=== PATIENT | female | born 1965 | race Caucasian/White ===

== ENCOUNTER 2017-10-31 15:45 | Emergency (ER) | payer SELFPAY ==
[2017-10-31 15:46] VITALS: BP 144/79; PULSE 67; RESP 17; TEMP 36.7; O2SAT 95; BMI 22.1
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
[2017-10-31] MEDS: Naproxen 500 MG Tablet PO (16:15)
[2017-10-31] MEDS: Ondansetron ODT 4 MG Tablet PO (16:15)
--- NOTE | 2017-10-31 16:16 | ED.RN ---
PT ASKING TO TAKE HER LISINOPRIL, DR. SILVERIO AWARE AND VERIFIES PATIENT OKAY TO TAKE
--- NOTE | 2017-10-31 16:55 | ED.DEP ---
ED Disposition - Plan for ED Patient: Disposition: Home or Assisted Living Chief Complaint: Chest Other Instructions: ED Contusion Chest Wall Prescriptions: Naproxen [Naprosyn] 500 mg PO BID PRN #20 tab Referrals: Lonnie Brower DO [Primary Care Provider] -
[2017-10-31 17:00] VITALS: BP 135/96; RESP 18
== END 2017-10-31 17:00 | disposition home or self-care (01) ==
PROVIDERS: Emergency Provider Emergency Medicine; Family Provider Student in an Organized Health Care Education/Training Program; PCP Student in an Organized Health Care Education/Training Program
DX: S20.212A Contusion of left front wall of thorax, initial encounter (principal); X58.XXXA Exposure to other specified factors, initial encounter; Y93.9 Activity, unspecified; Y92.9 Unspecified place or not applicable; Y99.9 Unspecified external cause status; I10 Essential (primary) hypertension; Z72.0 Tobacco use; Z79.899 Other long term (current) drug therapy
CPT/HCPCS: 71101; 99283

== ENCOUNTER 2018-04-06 15:21 | Emergency (ER) | payer SELFPAY ==
[2018-04-06 15:22] VITALS: BP 172/112; PULSE 77; RESP 14; TEMP 36.6; O2SAT 98; BMI 23.3
== END 2018-04-06 17:39 | disposition left against medical advice (07) ==
LOC: ED 17:17
PROVIDERS: Emergency Provider Emergency Medicine; Family Provider Student in an Organized Health Care Education/Training Program; PCP Student in an Organized Health Care Education/Training Program
DX: R69 Illness, unspecified (principal)

== ENCOUNTER 2020-01-04 11:34 | Emergency (ER) | payer SELFPAY ==
[2020-01-04 11:35] VITALS: BP 160/70; PULSE 94; RESP 16; TEMP 36.4; O2SAT 100; BMI 25.2
--- NOTE | 2020-01-04 12:50 | ED.VISSUMM ---
- ER Visit Summary Date of Service: 01/04/20 Chief Complaint: Back pain History of Present Illness: The patient is a 54 F who presents with back pain. When I went into the room to see the patient there was no one there. Staff reports that the patient left. Staff reports that the patient was ambulating without difficulty when she left. Physical Examination: Patient was not examined by myself. Disposition: Patient eloped prior to being seen. Impression: Back pain This note was generated with [employer] dictation software. It may contain incorrect words, spelling, and punctuation that were not noted in review of the chart prior to signing ED Disposition - Plan for ED Patient: Disposition: LEFT WITHOUT BEING SEEN Referrals: Lonnie Brower DO [Primary Care Provider] -
--- NOTE | 2020-01-04 13:05 | ED.RN ---
PHYSICIAN WENT TO ROOM TO SEE PT AT APPROXIMATELY 1230. PT WAS NOT IN ROOM, AND HAD NOT GONE TO THE RESTROOM. SCREENER IN THE TRIAGE AREA STATED THAT PT LEFT ED APPROXIMATELY 15 MINUTES AFTER GOING BACK TO ROOM. PT DID NOT INFORM ED THAT SHE WAS LEAVING PRIOR TO BEING SEEN.
== END 2020-01-04 13:11 | disposition left against medical advice (07) ==
PROVIDERS: Emergency Provider Emergency Medicine; PCP Student in an Organized Health Care Education/Training Program
DX: M54.9 Dorsalgia, unspecified (principal); Z79.899 Other long term (current) drug therapy

== ENCOUNTER 2020-01-06 13:31 | Emergency (ER) | payer MEDICAID, SELFPAY ==
[2020-01-06 13:32] VITALS: BP 138/95; PULSE 65; RESP 17; TEMP 36.4; O2SAT 99; BMI 24.7
--- NOTE | 2020-01-06 13:54 | ED.VIS.GEN ---
History of Present Illness Chief Complaint: Back Informant: Patient Narrative: 54-year-old female presenting with right hip pain. She states that a couple of days ago she was walking to the laundry room in her neighborhood and her neighbors dog tripped her. She fell backwards hitting her buttocks. She did not hit her head or lose consciousness. She states that she has been trying Tylenol and ibuprofen as well as some leftover Flexeril which does seem to help. She applied CBD oil prior to arrival and states that this helped a little as well. She is ambulatory with antalgic gait. She states that her pain was so bad last evening that it made her feel nauseous for short while. She feels improved today. Past Medical History - Allergies and Home Meds Allergies/Adverse Reactions: Allergies codeine Allergy (Verified 01/06/20 13:32) Itching Primary Care Physician: Lonnie Brower DO [Primary Care Provider] - Past Medical History: - - Hypertension, hyperlipidemia, TIA Surgical History: noncontributory Lives: Alone Smoking Status: Current every day smoker Alcohol: None Drugs: None Review of Systems General: Denies: Chills, Fever, Sweats Eyes: Denies: Visual changes - bilaterally, Diplopia Cardiovascular: Denies: Chest pain, Palpitations Respiratory: Denies: Dyspnea, Cough, Dyspnea on exertion Gastrointestinal: Reports: Nausea. Denies: Abdominal pain, Vomiting, Diarrhea, Constipation Genitourinary: Denies: Dysuria, Hematuria Musculoskeletal: Reports: Arthralgias, Extremity Pain - Pain in right hip. Denies: Myalgias Skin: Denies: Rash, Abscess Neurological: Denies: Headache, Parasthesia, Numbness Physical Exam Vital Signs/Narrative: Vital Signs Temp Pulse Resp BP Pulse Ox 01/06/20 13:32 97.5 F L 65 17 138/95 H 99 Inital Vital Signs reviewed: Yes General: Well nourished, Well developed, No Acute Distress Head: Normocephalic, Atraumatic Eyes: Perrl, EOMI ENT: Moist mucous membranes, No rhinorrhea Cardiovascular: Regular rate, Regular rhythm Respiratory: No distress, CTA bilaterally Abdomen: Soft, Nontender Back: - - Lumbar paraspinal muscular tenderness no midline spinal tenderness, deformity, step-off. Extremities: - - Is to palpation in the right gluteal region and right hip. There is no abrasions, ecchymosis, obvious deformity. Skin: Normal color, No rash Neurological: Alert, Oriented x3 Psychological: Normal affect, Normal Mood Diagnostic/Tx/Re-eval Clinical Impression(s) from Imaging Studies Hip/Pelvis X-Ray 01/06/20 15:28 IMPRESSION: Degenerative spur along the superior lateral right acetabular rim. Electronically Signed: Joe Dobbs, at 15:48 EDT , Service support , - Medical Decision Making She presents with right gluteal pain after mechanical fall. On examination this is the only focal area of tenderness. She has no back pain. X-ray of the right hip is negative. She was given Toradol and a Lidoderm patch and stated much better. Patient will be discharged home. Recommended she follow-up with her PCP to ensure improvement. Impression: 1. Mechanical fall 2. Right hip contusion ED Disposition - Plan for ED Patient: Disposition: Home or Assisted Living Instructions: ED CONTUSION Hip Prescriptions: traMADol [Ultram] 50 mg PO Q4H PRN PRN 3 Days #12 tab PRN Reason: Pain Prescription Printed Referrals: Lonnie Brower DO [Primary Care Provider] -
[2020-01-06] MEDS: Lidocaine 5% Patch 1 PATCH TOPICAL (15:00)
[2020-01-06] MEDS: Ketorolac 15 MG/ML Vial IM (15:00)
--- NOTE | 2020-01-06 15:28 | RAD_ITS ---
STUDY: X-RAY - PELVIS AND RIGHT HIP REASON FOR EXAM: Female, 54 years old. HIP PAIN TECHNIQUE: 3 views of the pelvis and hip. COMPARISON: None. FINDINGS: There is a non-specific bowel gas pattern. There are multiple calcified phleboliths. Normal bilateral iliac wings, sacroiliac joints and visualized sacrum. Normal bilateral superior and inferior pubic rami. Normal pubic symphysis. Normal bilateral ischial tuberosities. Normal visualized femoral head. There is osteoarthritic spur formation of the acetabular rim. Normal hip joint. RAD/HIP, UNI W/ Pelvis 2-3 Views IMPRESSION: Degenerative spur along the superior lateral right acetabular rim. Electronically Signed: Joe Dobbs, at 15:48 EDT , Service support ,
[2020-01-06 16:20] VITALS: RESP 17
--- NOTE | 2020-01-06 16:29 | ED.RN ---
pt left cell phone in department. called pt's daughter and left a message that pt can come pick it up at the security office.
== END 2020-01-06 16:21 | disposition home or self-care (01) ==
PROVIDERS: Emergency Provider Student in an Organized Health Care Education/Training Program; PCP Student in an Organized Health Care Education/Training Program
DX: S70.01XA Contusion of right hip, initial encounter (principal); W01.0XXA Fall on same level from slipping, tripping and stumbling without subsequent striking against object, initial encounter; Y93.01 Activity, walking, marching and hiking; Y92.9 Unspecified place or not applicable; Y99.9 Unspecified external cause status; I10 Essential (primary) hypertension; E78.5 Hyperlipidemia, unspecified; F17.200 Nicotine dependence, unspecified, uncomplicated; Z79.82 Long term (current) use of aspirin; Z79.899 Other long term (current) drug therapy; Z86.73 Personal history of transient ischemic attack (TIA), and cerebral infarction without residual deficits
CPT/HCPCS: 73502; 96372; 99283

== ENCOUNTER 2023-09-15 19:11 | Emergency (ER) | payer MEDICAID, SELFPAY ==
[2023-09-15 19:13] VITALS: BP 152/90; PULSE 91; RESP 18; TEMP 36.6; O2SAT 95; BMI 25.7
--- NOTE | 2023-09-15 19:53 | ED.VIS.FALL ---
HPI HPI - Fall History of Present Illness Chief Complaint: Lower Extremity Injury Informant: patient Narrative Narrative: 57-year-old female states she was getting out of bed and her left foot got caught and she fell out of it landing on the medial aspect of her left knee which has been hurting severely since this happened this morning. She had a stroke in her left side has been weak ever since, she thinks it may be related. She states this was purely accidental. She states if she puts her left lower extremity in certain positions she is hurting a lot less but any movement or externally rotating at the left hip and bending her knee is really painful. Denies any other injury. Patient states there is also a nodule that has appeared on her left petersen that she is concerned about. She states it has been there for couple weeks and is not growing is not hurting but she wonders why. PFSH PFSH Medical History Hypercholesteremia HTN (hypertension) Stroke Home Medications ?Medication ?Instructions ?Recorded ?Last Taken ?Type lisinopril 20 mg tablet 40 mg PO DAILY 10/31/17 Unknown History amlodipine 5 mg tablet 5 mg PO DAILY 01/06/20 Unknown History aspirin 81 mg chewable tablet 81 mg PO DAILY@0800 01/06/20 Unknown History atorvastatin 20 mg tablet 20 mg PO DAILY 01/06/20 Unknown History hydrocodone-acetaminophen 5-325mg 1 tab PO Q6H PRN PRN Pain 2 days 09/15/23 Unknown Rx 5mg-325mg #5 TABLETS Allergy/AdvReac Type Severity Reaction Status Date / Time codeine Allergy Itching Verified 09/15/23 19:15 Social History Smoking Status: Current every day smoker tobacco type: cigarettes ROS ROS ED Constitutional Constitutional ED: Denies chills or fever(s) Musculoskeletal Musculoskeletal: Reports extremity pain; Denies neck pain Integumentary Denies Abrasions, rash or wounds Neurologic Neurologic: Reports other Details: Pre-existing left-sided weakness unchanged EXAM Physical Exam Const Vital Signs: 09/15/23 19:13 Temperature 97.8 F Temperature Source Temporal Pulse Rate 91 Respiratory Rate 18 Blood Pressure 152/90 H Blood Pressure Mean 110 Pulse Ox 95 Oxygen Delivery Method Room Air Positive well nourished and well developed General Appearance ED: well developed and NAD Neck full ROM and supple Back/Spine normal ROM and normal to inspection Extremity Extremity Narrative: Limited range of motion left knee due to pain. Tender at the joint line and distal femur medially. No effusion. Some localized swelling at the medial knee. Extensor mechanism is intact, there is pain with stressing the MCL but no significant laxity. The LCL is without pain on stressing and without laxity, I am not able to evaluate the ACL and PCL due to the patient's inability to bend the knee at all. Neurovascular intact distally with a pulse distally. There is also a small firm nontender nodule without discoloration over the mid left petersen. Neuro oriented x3 Sensorium / Orientation: alert Psych mental status grossly normal and thought process normal Skin no wounds Rashes: no rashes MDM MDM MDM Narrative Medical decision making narrative: 4 view x-ray series of the left knee on my interpretation is negative for acute fracture radiology was in agreement. Also obtain [id number] series, 2 views on my interpretation shows no bony prominence where the nodule on her petersen lies. Reassured, advised warm compresses of this area, it is an unknown structure, whether subcutaneous tissue or superficial vein. She has a brace for her knee, she was given tramadol 1 something more for pain because it hurts so bad. Given Naprosyn and I will give her a prescription for a few [place] but giving it to her now would block the effects that she was just given tramadol. Radiography Diagnostic Testing: Clinical Impression(s) from Imaging Studies Tibia/Fibula X-Ray 09/15/23 19:57 IMPRESSION: Negative left tibia and fibula x-rays. Electronically Signed: Gurvinder Perez DO at 20:42 EDT , Knee X-Ray 09/15/23 20:10 IMPRESSION: Degenerative changes. No acute findings. Electronically Signed: Gurvinder Perez DO at 20:42 EDT , Discharge Plan Triage Chief Complaint: Lower Extremity Injury ED Provider: Jamshid Faye Dx/Rx/DC Orders Clinical Impression: Contusion of knee, left, Accidental fall from bed, Subcutaneous nodule of left lower leg Instructions: ED Contusion, Lower Extremity Prescriptions: New hydrocodone-acetaminophen 5-325 mg tablet 1 tab PO Q6H PRN PRN (Reason: Pain) 2 Days Qty: 5 0RF No Action lisinopril 20 MG tablet 40 mg PO DAILY atorvastatin 20 MG tablet 20 mg PO DAILY amlodipine 5 MG tablet 5 mg PO DAILY aspirin 81 MG tablet,chewable 81 mg PO DAILY@0800 Primary Care Provider: Lonnie Brower Referrals: Lonnie Brower DO [Primary Care Provider] - Print Language: Slovenian Disposition Disposition: Home, Self Care
--- NOTE | 2023-09-15 19:57 | RAD_ITS ---
EXAM: XR LEFT TIBIA AND FIBULA, 2 VIEWS CLINICAL INDICATION: nodule on petersen TECHNIQUE: Frontal and lateral views of the left tibia and fibula. COMPARISON: Knee on the same date. FINDINGS: BONES/JOINTS: No significant abnormality. No acute fracture. No subluxation. Normal alignment. Preservation of the joint space. No sclerotic or destructive changes observed. SOFT TISSUES: No significant abnormality. No soft tissue swelling or gas. No radiopaque foreign body. RAD/Tibia & Fibula 2 Views IMPRESSION: Negative left tibia and fibula x-rays. Electronically Signed: Gurvinder Perez DO at 20:42 EDT ,
--- NOTE | 2023-09-15 20:10 | RAD_ITS ---
EXAM: XR LEFT KNEE COMPLETE, 4 OR MORE VIEWS CLINICAL INDICATION: injury TECHNIQUE: Four or more views of the left knee. COMPARISON: Tibia on the same date.. FINDINGS: BONES/JOINTS: Mild weightbearing compartment and patellofemoral marginal osteophytosis. No acute fracture. No subluxation. Normal alignment. Preservation of the joint space. No sclerotic or destructive changes observed. SOFT TISSUES: No significant abnormality. No soft tissue swelling or gas. No radiopaque foreign body. RAD/Knee 4 or More Views IMPRESSION: Degenerative changes. No acute findings. Electronically Signed: Gurvinder Perez DO at 20:42 EDT ,
[2023-09-15] MEDS: traMADol 50 MG Tablet PO (20:15)
[2023-09-15] MEDS: Ondansetron ODT 4 MG Tablet 8 MG PO (20:38)
[2023-09-15 21:16] VITALS: BP 125/86; PULSE 79; RESP 16; TEMP 36.7; O2SAT 95
[2023-09-15] MEDS: Naproxen 500 MG Tablet PO (21:22)
== END 2023-09-15 21:24 | disposition home or self-care (01) ==
PROVIDERS: Emergency Provider Emergency Medicine; PCP Student in an Organized Health Care Education/Training Program; Visit Provider Emergency Medicine
DX: S80.02XA Contusion of left knee, initial encounter (principal); I69.354 Hemiplegia and hemiparesis following cerebral infarction affecting left non-dominant side; W06.XXXA Fall from bed, initial encounter; R22.42 Localized swelling, mass and lump, left lower limb; I10 Essential (primary) hypertension; E78.00 Pure hypercholesterolemia, unspecified; F17.210 Nicotine dependence, cigarettes, uncomplicated; Z79.82 Long term (current) use of aspirin; Z79.899 Other long term (current) drug therapy
CPT/HCPCS: 73564; 73590; 99283

== ENCOUNTER 2023-11-15 16:40 | Emergency (ER) | payer MEDICAID, SELFPAY ==
[2023-11-15 16:40] VITALS: BP 115/88; PULSE 81; RESP 14; TEMP 36.1; O2SAT 98; BMI 60.2
--- NOTE | 2023-11-15 17:20 | NURSING ---
This nurse walked past pts room, saw pt rummaging in the drawer. This nurse entered pts room, pt asked for a bottle of superglue or she was leaving. This nurse educated pt that this nurse couldnt just superglue her finger. Pt then stated, fine you guys dont want to help me Im just going to leave. This nurse stated to pt that she would go see what the hold up was for the doc coming in to see her. Pt said no its fine, im leaving and I will call the hospital administator and report all of you guys for not wanting to help me. Pt had been checked in for 37 minutes when she decided to leave.
--- NOTE | 2023-11-15 17:23 | ED.RN ---
HAND SOAKED IN NS AND REWRAPPED IN TRIAGE. PER SECURITY, PT STORMED OUT OF HERE STATING IM GOING TO CALL ADMINISTRATION AND SUPER GLUE IT HERSELF.
== END 2023-11-15 17:20 | disposition left against medical advice (07) ==
LOC: ED 17:34
PROVIDERS: PCP Student in an Organized Health Care Education/Training Program
DX: Z53.21 Procedure and treatment not carried out due to patient leaving prior to being seen by health care provider (principal)
CPT/HCPCS: 99281

== ENCOUNTER 2024-01-15 09:50 | Emergency (ER) | payer MEDICAID, SELFPAY ==
[2024-01-15 09:50] VITALS: BP 137/91; PULSE 102; RESP 17; TEMP 36.2; O2SAT 98; BMI 24.4
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
--- NOTE | 2024-01-15 10:15 | ED.RN ---
Tamara Bryant was present during the breast exam with , requested by the patient to have a female present during exam.
--- NOTE | 2024-01-15 10:18 | CT_ITS ---
STUDY: CT CHEST WITHOUT CONTRAST REASON FOR EXAM: Female, 58 years old. left chest wall trauma RADIATION DOSAGE (If Supplied By Facility): CTDIvol = ( 12.94 ) mGy, DLP = ( 538.61 ) mGycm TECHNIQUE: Transaxial imaging was performed without the administration of intravenous contrast material. Individualized dose optimization techniques were used for this CT. COMPARISON: None. FINDINGS: * No visualized large or displaced rib fractures or pneumothorax or pleural effusion or pulmonary contusion/consolidation * Mild cystic emphysematous changes and scattered interstitial fibrosis is present in both lungs * No demonstrated sternal fracture or mediastinal hematoma * No masses or nodules are present in either lung * Moderate LAD atherosclerotic calcifications are present. The lungs are normal. There is no demonstrated pleural abnormality. Normal heart and pericardium. Normal mediastinum. Normal hilar regions. Normal unenhanced pulmonary arteries. Normal aorta arch and descending thoracic aorta. There are multi-level degenerative changes of the thoracic spine. There is no demonstrated acute abnormality of the visualized upper abdomen. Chronic pancreatitis noted with numerous punctate calcifications of the pancreatic parenchyma. Small and moderate size cyst present in both kidneys that does not require any additional imaging or assessment. The remaining visualized upper abdominal structures are unremarkable. CT/Chest without Contrast IMPRESSION: 1. No visualized large or displaced rib fractures or pneumothorax or pleural effusion or pulmonary contusion/consolidation 2. Mild cystic emphysematous changes and scattered interstitial fibrosis is present in both lungs 3. No demonstrated sternal fracture or mediastinal hematoma 4. No masses or nodules are present in either lung 5. Moderate LAD atherosclerotic calcifications are present. Electronically Signed: Porfirio Barboza MD at 11:14 EDT ,
--- NOTE | 2024-01-15 11:05 | ED.RN ---
pt states thanks for nothing to the triage nurse and leaves.
--- NOTE | 2024-01-15 12:49 | ED.RN ---
pt. just called ER and spoke to this RN and stated she would like the results of her CT scan. Pt. was informed that because she eloped prior to results of CT scan and prior to receiving d/c instructions I would not be able to give her results over the phone as I cannot answer any questions she has about the scan. Pt. stated I will be calling my insurance company and having them not pay for the CT scan, I want to talk to someone in charge. Pt. was transferred to pt. advocate.
== END 2024-01-15 11:06 | disposition left against medical advice (07) ==
LOC: ED 10:39
PROVIDERS: Emergency Provider Emergency Medicine; PCP Student in an Organized Health Care Education/Training Program; Visit Provider Emergency Medicine
DX: S20.219A Contusion of unspecified front wall of thorax, initial encounter (principal); I10 Essential (primary) hypertension; Y04.8XXA Assault by other bodily force, initial encounter; E78.00 Pure hypercholesterolemia, unspecified; Z79.82 Long term (current) use of aspirin; Z79.899 Other long term (current) drug therapy; Z86.73 Personal history of transient ischemic attack (TIA), and cerebral infarction without residual deficits; Z87.891 Personal history of nicotine dependence
CPT/HCPCS: 71250; 99282

== ENCOUNTER 2024-11-15 15:19 | Emergency (ER) | payer MEDICAID, SELFPAY ==
[2024-11-15 15:19] VITALS: BP 138/122; PULSE 78; RESP 18; TEMP 36.8; O2SAT 98; BMI 24.3
--- OUTSIDE RECORDS SUMMARY | 2024-11-15 15:44 | XMS RPT_ITS | CCD ---
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 [place] [address] Performed By: #### 3 051-0, 3024-7, 85691-2, 40124-6 ####[facility] [id number] [place] [address] [place] ALP [Catalytic activity/Vol] 94 U/L Normal 34-123 [facility] Comment on above: Order Comment: Speci men Type: BLOOD SPECIMENOrdering Facility: [facility] Address: [address] [place] [address] Performed By: #### 3 051-0, 3024-7, 83234-3, 62609-6 ####[facility]IA [id number] [place] [address] [place] ALT [Catalytic activity/Vol] 27 U/L Normal 7-38 [facility] Comment on above: Order Comment: Speci men Type: BLOOD SPECIMENOrdering Facility: [facility] Address: [address] [place] [address] Performed By: #### 3 051-0, 3024-7, 71222-4, 38877-2 ####[facility] [id number] [place] [id number] [place] Anion gap [Moles/Vol] 12 mmol/L Normal 8-15 [facility] Comment on above: Order Comment: Speci men Type: BLOOD SPECIMENOrdering Facility: [facility] Address: [address] [place] [address] Performed By: #### 3 051-0, 3024-7, 88667-4, 14213-7 ####[facility] [id number] [place] [address] [place] AST [Catalytic activity/Vol] 24 U/L Normal 13-35 [facility] Comment on above: Order Comment: Speci men Type: BLOOD SPECIMENOrdering Facility: [facility] Address: [address] [place] [address] Performed By: #### 3 051-0, 3024-7, 96794-2, 90059-1 ####[facility]IA [id number] [place] [address] [place] Bilirubin [Mass/Vol] 0.3 mg/dL Normal 0.2-1.3 [facility] Comment on above: Order Comment: Speci men Type: BLOOD SPECIMENOrdering Facility: [facility] Address: [address] [place] [address] Performed By: #### 3 051-0, 3024-7, 18553-3, 86707-7 ####[facility] [id number] [place] [address] [place] Calcium [Mass/Vol] 9.0 mg/dL Normal 8.5-10.2 [facility] Comment on above: Order Comment: Speci men Type: BLOOD SPECIMENOrdering Facility: [facility] Address: [address] [place] [address] Performed By: #### 3 051-0, 3024-7, 41943-2, 22203-9 ####[facility] [id number] [place] [address] [place] Chloride [Moles/Vol] 104 mmol/L Normal 98-107 [facility] Comment on above: Order Comment: Speci men Type: BLOOD SPECIMENOrdering Facility: [facility] Address: [address] [place] [address] Performed By: #### 3 051-0, 3024-7, 59243-5, 07665-3 ####[facility] [id number] [place] [address] [place] CO2 [Moles/Vol] 22 mmol/L Normal 22-30 [facility] Comment on above: Order Comment: Speci men Type: BLOOD SPECIMENOrdering Facility: [facility] Address: [address] [place] [address] Performed By: #### 3 051-0, 3024-7, 21284-1, 54328-7 ####[facility]IA [id number] [place] [address] [place] Creatinine [Mass/Vol] 0.65 mg/dL Normal 0.58-0.96 [facility] Comment on above: Order Comment: Speci men Type: BLOOD SPECIMENOrdering Facility: [facility] Address: [address] [place] [address] Performed By: #### 3 051-0, 3024-7, 72292-7, 58002-6 ####[facility] [id number] [place] [address] [place] eGFRcr SerPlBld CKD-EPI 2020 103 mL/min/1.73m??? Normal >=60 [facility] Comment on above: Order Comment: Speci men Type: BLOOD SPECIMENOrdering Facility: [facility] Address: [address] [place] [address] Result Comment: Lucy mated Glomerular Filtration Rate (eGFR) is calculated using the 2020 CKD-EPI creatinine equation. This equation utilizes serum creatinine, sex, and age as parameters. The creatinine assay has traceable calibration to isotope dilution-mass spectrometry. Refer to KDIGO guidelines for clinical interpretation. In patients with unstable renal function, e.g. those with acute kidney injury, the eGFR may not accurately reflect actual GFR. Performed By: #### 3 051-0, 3023-7, , 66442-4 ####[facility] [id number] [facility] [address] [address] [place] Glucose [Mass/Vol] 109 mg/dL High 74-99 [facility] Comment on above: Order Comment: Jose Luis barkley Type: BLOOD SPECIMENOrdering Facility: [facility] Address: [address] [place] [address] Result Comment: The [place] Diabetes Association (ADA) provides guidance for cutoff values for fasting glucose and random glucose. The ADA defines fasting as no caloric intake for at least 8 hours. Fasting plasma glucose results between 100 to 125 mg/dL indicate increased risk for diabetes (prediabetes). Fasting plasma glucose results greater than or equal to 126 mg/dL meet the criteria for diagnosis of diabetes. In the absence of unequivocal hyperglycemia, results should be confirmed by repeat testing. In a patient with classic symptoms of hyperglycemia or hyperglycemic crisis, random plasma glucose results greater than or equal to 200 mg/dL meet the criteria for diagnosis of diabetes. Reference: Standards of Medical Care in Diabetes 2016, [place] Diabetes Association. Diabetes Care. 2016.39(Suppl 1). Performed By: #### 3 051-0, 4-7, , ####[facility] [id number] [facility] [address] [address] [place] Potassium [Moles/Vol] 3.8 mmol/L Normal 3.7-5.1 [facility] Comment on above: Order Comment: Jose Luis barkley Type: BLOOD SPECIMENOrdering Facility: [facility] Address: [address] [place] [address] Performed By: #### 3 051-0, 302-7, , 93876-6 ####[facility]CL[facility] [id number] [facility] [address] [address] [place] Protein [Mass/Vol] 6.8 g/dL Normal 6.3-8.0 [facility] Comment on above: Order Comment: Speci men Type: BLOOD SPECIMENOrdering Facility: [facility] Address: [address] [place] [address] Performed By: #### 3 051-0, 3024-7, 66359-5, 97400-2 ####[facility]CL[facility] [id number] [place] [address] [place] Sodium [Moles/Vol] 138 mmol/L Normal 136-144 [facility] Comment on above: Order Comment: Speci men Type: BLOOD SPECIMENOrdering Facility: [facility] Address: [address] [place] [address] Performed By: #### 3 051-0, 3024-7, 53261-9, 05421-4 ####[facility]CL[facility] [id number] [place] [address] [place] Urea nitrogen [Mass/Vol] 10 mg/dL Normal 7-21 [facility] Comment on above: Order Comment: Speci men Type: BLOOD SPECIMENOrdering Facility: [facility] Address: [address] [place] [address] Performed By: #### 3 051-0, 3024-7, 99357-1, 26240-8 ####[facility] [id number] [place] [address] [place] HbA1c (Bld)on 11-09-2024 Average glucose Estimated from glycated hemoglobin (Bld) [Mass/Vol] 108 mg/dL Normal [facility] Comment on above: Order Comment: Speci men Type: BLOOD SPECIMENOrdering Facility: [facility] Address: [address] [place] [address] Result Comment: eAG: (Estimated average glucose) is a calculated value from HgbA1c and is client representative of the average blood glucose level in the last 2-3 month period. Performed By: #### 5 5454-3 ####[facility]CL[facility] [id number] [address] [place] HbA1c (Bld) [Mass fraction] 5.4 % Normal 4.3-5.6 [facility] Comment on above: Order Comment: Edmundogarfield barkley Type: BLOOD SPECIMENOrdering Facility: [facility] Address: [address] [place] [address] Result Comment: [place] Diabetes Association guidelines indicate that patients with HgbA1c in the range 5.7-6.4% are at increased risk for development of diabetes, and intervention by lifestyle modification may be beneficial. HgbA1c greater or equal to 6.5% is considered diagnostic of diabetes. Performed By: #### 5 5454-3 ####[facility] LABIA [id number] [address] [place] Lipid 1996 panelon 5 Cholesterol [Mass/Vol] 134 mg/dL Normal <200 [facility] Comment on above: Order Comment: Jose Luis rubia Type: BLOOD SPECIMENOrdering Facility: [facility] Address: [address] [place] [address] Result Comment: <200 mg/dL, Desirable 200-239 mg/dL, Borderline high >239 mg/dL, High Performed By: #### 3 051-0, 3024-7, 75260-3, 04780-1 ####[facility]CL[facility] [id number] [address] OF [facility] Cholesterol in HDL [Mass/Vol] 54 mg/dL Normal >39 [facility] Comment on above: Order Comment: [facility] Type: BLOOD SPECIMENOrdering Facility: [facility] Address: [address] [place] [address] Result Comment: 40-5 9 mg/dL, Acceptable >59 mg/dL, High: Negative risk factor for coronary heart disease <40 mg/dL, Low: Positive risk factor for coronary heart disease Performed By: #### 3 051-0, 3024-7, 04853-3, 11768-8 ####[facility] LABCL[facility] [id number] [place] [id number] [place] Cholesterol in LDL [Mass/Vol] 65 mg/dL Normal <100 [facility] Comment on above: Order Comment: Speci men Type: BLOOD SPECIMENOrdering Facility: [facility] Address: [address] [place] [address] Result Comment: <100 mg/dL, Optimal 100-129 mg/dL, Near optimal/above optimal 130-159 mg/dL, Borderline high 160-189 mg/dL, High >189 mg/dL, Very high Secondary prevention optimal LDL Cholesterol levels are recommended to be <70 mg/dL LDL cholesterol is calculated using the Barnett-NIH equation. Performed By: #### 3 051-0, 3024-7, 40395-4, 26577-1 ####[facility] LABIA [id number] [place] [address] [place] Cholesterol in LDL/Cholesterol in HDL [Mass ratio] 1.20 {ratio} Normal <2.54 [facility] Comment on above: Order Comment: Speci men Type: BLOOD SPECIMENOrdering Facility: [facility] Address: [address] [place] [address] Result Comment: Loyd hurley: 1. National Cholesterol Education Program ATP III Guideline At-A-Glance Quick Desk Reference: National Heart, Lung, and Blood [place]. National Institutes of Health. 2001: NIH Publication No. 01-3305. 2. An International Atherosclerosis Society position paper: global recommendations for the management of dyslipidemia: executive summary, Atherosclerosis. 2014: 232(2):410-413. Performed By: #### 3 051-0, 3024-7, 51288-3, 15563-6 ####[facility] LABIA [id number] [place] [id number] [place] Cholesterol in VLDL [Mass/Vol] 11 mg/dL Normal <30 [facility] Comment on above: Order Comment: Speci men Type: BLOOD SPECIMENOrdering Facility: [facility] Address: [address] [place] [address] Performed By: #### 3 051-0, 4-7, 35550-9, 01660-7 ####[facility]CL[facility] [id number] [facility] [address] [place] [address] [place] Cholesterol non HDL [Mass/Vol] 80 mg/dL Normal <130 [facility] Comment on above: Order Comment: Speci men Type: BLOOD SPECIMENOrdering Facility: [facility] Address: [address] [place] [address] Result Comment: <130 mg/dL, Optimal 130-159 mg/dL, Near optimal/above optimal 160-189 mg/dL, Borderline high 190-219 mg/dL, High >219 mg/dL, Very high Secondary prevention optimal non HDL Cholesterol levels are recommended to be <100 mg/dL Performed By: #### 3 051-0, 3023-7, 56177-8, 45381-0 ####[facility]CL[facility] [id number] [place] [id number] [place] Cholesterol.total/Chol esterol in HDL [Mass ratio] 2.48 {ratio} Normal <5.10 [facility] Comment on above: Order Comment: Speci men Type: BLOOD SPECIMENOrdering Facility: [facility] Address: [address] [place] [address] Performed By: #### 3 051-0, 3023-7, 60870-8, 19998-6 ####[facility]CL[facility] [id number] [address] [place] [address] [place] FASTING TIME 12 hrs Normal [facility] Comment on above: Order Comment: Speci men Type: BLOOD SPECIMENOrdering Facility: [facility] Address: [address] [place] [address] Performed By: #### 3 051-0, 3023-7, 30610-2, 65138-2 ####[facility]CL[facility] [id number] [facility] [address] [place] [address] [place] Triglyceride [Mass/Vol] 78 mg/dL Normal <150 [facility] Comment on above: Order Comment: Speci men Type: BLOOD SPECIMENOrdering Facility: [facility] Address: [address] [place] [address] Result Comment: <150 mg/dL, Normal 150-199 mg/dL, Borderline high 200-499 mg/dL, High >499 mg/dL, Very high Performed By: #### 3 051-0, 3024-7, 35496-3, 98354-8 ####[facility] [id number] [place] [address] [place] QUANT TOX PANELon 11-09-2024 7-Lracuivcua-0,5-Dimet hyl-3,3-Diphenylpyrrol idine (EDDP) Confirm (U) [Mass/Vol] <25 Normal <25 [facility] Comment on above: Order Comment: Speci men Type: URINE SPECIMENOrdering Facility: [facility] Address: [address] [place] [address] Result Comment: 4-Qsigxevhcy-6,1-eoceqebn-0,3-diphenylpyrrolidine (EDDP) is a metabolite of methadone. Performed By: #### U QNTX ####[facility] [id number] [address] [place] 6-Monoacetylmorphine (6-BENJAMÍN) (U) [Mass/Vol] <5 Normal <5 [facility] Comment on above: Order Comment: Speci men Type: URINE SPECIMENOrdering Facility: [facility] Address: [address] [place] [address] Result Comment: 6-Mo noacetylmorphine is a metabolite of heroin. Performed By: #### U QNTX ####[facility] [id number] [place] [address] [place] Amphetamine Confirm (U) [Mass/Vol] <25 Normal <25 [facility] Comment on above: Order Comment: Speci men Type: URINE SPECIMENOrdering Facility: [facility] Address: [address] [place] [address] Result Comment: Meth ylphenidate does not contain or metabolize to amphetamine. Performed By: #### U QNTX ####[facility] [id number] [place] [address] [place] Benzoylecgonine Confirm (U) [Mass/Vol] <25 Normal <25 [facility] Comment on above: Order Comment: Speci men Type: URINE SPECIMENOrdering Facility: [facility] Address: [address] [place] [address] Result Comment: Emmanuel oylecgonine is a metabolite of cocaine. Performed By: #### U QNTX ####[facility] [id number] [place] [address] [place] Buprenorphine (U) [Mass/Vol] <5 Normal <5 [facility] Comment on above: Order Comment: Speci men Type: URINE SPECIMENOrdering Facility: [facility] Address: [address] [place] [address] Result Comment: Mulu ents using transdermal formulations of buprenorphine may yield undetectable buprenorphine and norbuprenorphine urine concentrations. Performed By: #### U QNTX ####[facility] [id number] [place] [address] [place] Carboxy tetrahydrocannabinol (U) [Mass/Vol] 1116 ng/mL High <10 [facility] Comment on above: Order Comment: Speci men Type: URINE SPECIMENOrdering Facility: [facility] Address: [address] [place] [address] Result Comment: 11-N hk-6-acyopon-tetrahydrocannabinol (vnsat-8-muhlmir-THC) is a metabolite of tavbp-3-jqciluwfusjinlabwnbt (THC). Presence of odpxd-4-mapsxij-THC is consistent with use of a THC-containing drug. This test does not differentiate between delta-8 or delta-9 carboxy-THC. Performed By: #### U QNTX ####[facility] [id number] [address] [place] Codeine Confirm (U) [Mass/Vol] <25 Normal <25 [facility] Comment on above: Order Comment: Speci men Type: URINE SPECIMENOrdering Facility: [facility] Address: [address] [place] [address] Performed By: #### U QNTX ####[facility] [id number] [place] [address] [place] fentaNYL Confirm (U) [Mass/Vol] <1 Normal <1 [facility] Comment on above: Order Comment: Speci men Type: URINE SPECIMENOrdering Facility: [facility] Address: [address] [place] [address] Performed By: #### U QNTX ####[facility] [id number] [address] [place] HYDROcodone Confirm (U) [Mass/Vol] <25 Normal <25 [facility] Comment on above: Order Comment: Speci men Type: URINE SPECIMENOrdering Facility: [facility] Address: [address] [place] [address] Performed By: #### U QNTX ####[facility] [id number] [address] [place] HYDROmorphone Confirm (U) [Mass/Vol] <25 Normal <25 [facility] Comment on above: Order Comment: Speci men Type: URINE SPECIMENOrdering Facility: [facility] Address: [address] [place] [address] Performed By: #### U QNTX ####[facility] [id number] [place] [address] [place] MDA, UR <25 Normal <25 [facility] Comment on above: Order Comment: Speci men Type: URINE SPECIMENOrdering Facility: [facility] Address: [address], [place] [address] Result Comment: 3,4 Methylenedioxyamphetamine is also known as MDA. Performed By: #### U QNTX ####[facility] [id number] [place] [address] [place] MDEA, UR <25 Normal <25 [facility] Comment on above: Order Comment: Speci men Type: URINE SPECIMENOrdering Facility: [facility] Address: [address] [place] [address] Result Comment: 3,4 Swvwewdepbeyrt-U-zcmirjinranvldia is also known as MDEA. Performed By: #### U QNTX ####[facility] [id number] [place] [address] [place] MDMA, UR <25 Normal <25 [facility] Comment on above: Order Comment: Speci men Type: URINE SPECIMENOrdering Facility: [facility] Address: [address] [place] [address] Result Comment: 3,4- Methylenedioxymethamphetamine is also known as MDMA. Performed By: #### U QNTX ####[facility] [id number] [place] [address] [place] Methadone Confirm (U) [Mass/Vol] <25 Normal <25 [facility] Comment on above: Order Comment: Speci men Type: URINE SPECIMENOrdering Facility: [facility] Address: [address] [place] [address] Performed By: #### U QNTX ####[facility] [id number] [place] [address] [place] Methamphetamine Confirm (U) [Mass/Vol] <25 Normal <25 [facility] Comment on above: Order Comment: Speci men Type: URINE SPECIMENOrdering Facility: [facility] Address: [address] [place] [address] Performed By: #### U QNTX ####[facility] [id number] [place] [address] [place] Morphine Confirm (U) [Mass/Vol] <25 Normal <25 [facility] Comment on above: Order Comment: Speci men Type: URINE SPECIMENOrdering Facility: [facility] Address: [address] [place] [address] Performed By: #### U QNTX ####[facility] [id number] [place] [address] [place] Norbuprenorphine (U) [Mass/Vol] <10 Normal <10 [facility] Comment on above: Order Comment: Speci men Type: URINE SPECIMENOrdering Facility: [facility] Address: [address] [place] [address] Result Comment: Norb uprenorphine is a metabolite of buprenorphine. Patients using transdermal formulations of buprenorphine may yield undetectable buprenorphine and norbuprenorphine urine concentrations. Performed By: #### U QNTX ####[facility] [id number] [place] [address] [place] Norfentanyl Confirm (U) [Mass/Vol] <1 Normal <1 [facility] Comment on above: Order Comment: Speci men Type: URINE SPECIMENOrdering Facility: [facility] Address: [address] [place] [address] Result Comment: Norf entanyl is a metabolite of fentanyl. Performed By: #### U QNTX ####[facility] [id number] [place] [address] [place] [place] NORHYDROCODONE, UR <25 Normal <25 [facility] Comment on above: Order Comment: Speci men Type: URINE SPECIMENOrdering Facility: [facility] Address: [address] [place] [address] Result Comment: Norh ydrocodone is a metabolite of hydrocodone. Performed By: #### U QNTX ####[facility] [id number] [address] [id number] [address] [place] NOROXYCODONE, UR <25 Normal <25 [facility] Comment on above: Order Comment: Speci men Type: URINE SPECIMENOrdering Facility: [facility] Address: [address] [place] [address] Result Comment: Noro xycodone is a metabolite of oxycodone. Performed By: #### U QNTX ####[facility] [id number] [address] [place] NOROXYMORPHONE, UR <25 Normal <25 [facility] Comment on above: Order Comment: Speci men Type: URINE SPECIMENOrdering Facility: [facility] Address: [address] [place] [address] Result Comment: Noro xymorphone is a metabolite of oxymorphone and oxycodone and a minor metabolite of naltrexone and naloxone. Performed By: #### U QNTX ####[facility] [id number] [address] [place] Nortramadol (U) [Mass/Vol] <25 Normal <25 [facility] Comment on above: Order Comment: Speci men Type: URINE SPECIMENOrdering Facility: [facility] Address: [address] [place] [address] Result Comment: O-de smethyltramadol is a metabolite of tramadol. Performed By: #### U QNTX ####[facility] [id number] [address] [place] NOTE, UR TOXICOLOGY PANEL Normal [facility] Comment on above: Order Comment: Speci men Type: URINE SPECIMENOrdering Facility: [facility] Address: [address] [place] [address] Result Comment: For medical purposes only. Not valid for legal or forensic purposes. This test was developed, and its performance characteristics determined by the [facility] Department of Pathology and Laboratory Medicine. It has not been cleared or approved by the FDA. The [facility] Department of Pathology and Laboratory Medicine is regulated under CLIA as qualified to perform high-complexity testing. This test is used for clinical purposes. It should not be regarded as investigational or for research. Performed By: #### U QNTX ####[facility] [id number] [place] [address] [place] oxyCODONE Confirm (U) [Mass/Vol] <25 Normal <25 [facility] Comment on above: Order Comment: Speci men Type: URINE SPECIMENOrdering Facility: [facility] Address: [address] [place] [address] Performed By: #### U QNTX ####[facility] [id number] [place] [address] [place] oxyMORphone Confirm (U) [Mass/Vol] <25 Normal <25 [facility] Comment on above: Order Comment: Speci men Type: URINE SPECIMENOrdering Facility: [facility] Address: [address] [place] [address] Performed By: #### U QNTX ####[facility] [id number] [address] [place] Phencyclidine Confirm (U) [Mass/Vol] <10 Normal <10 [facility] Comment on above: Order Comment: Speci men Type: URINE SPECIMENOrdering Facility: [facility] Address: [address] [place] [address] Result Comment: Phen cyclidine is also known as PCP. Performed By: #### U QNTX ####[facility] [id number] [place] [address] [place] PHENTERMINE, UR <25 Normal <25 [facility] Comment on above: Order Comment: Speci men Type: URINE SPECIMENOrdering Facility: [facility] Address: [address] [place] [address] Performed By: #### U QNTX ####[facility] [id number] [address], [facility]95 [place] traMADol Confirm (U) [Mass/Vol] <25 Normal <25 [facility] Comment on above: Order Comment: Speci men Type: URINE SPECIMENOrdering Facility: [facility] Address: [address] [place] [address] Performed By: #### U QNTX ####[facility] [id number] [place] [id number] [place] SPECIMEN VALIDITY, URINEon 0 11-09-2024 CREATININE,URINE 78.0 mg/dL Normal 20.0-300.0 [facility] Comment on above: Order Comment: Speci men Type: URINE SPECIMENOrdering Facility: [facility] Address: [address] [place] [address] Performed By: #### L [id number] ####[facility] [id number] [place] [address] [place] NITRITES,URINE <50 Normal <500 [facility] Comment on above: Order Comment: Speci men Type: URINE SPECIMENOrdering Facility: [facility] Address: [address] [place] [address] Performed By: #### L [id number] ####[facility] [id number] [place] [id number] [place] OXIDANTS,URINE <38 Normal <200 [facility] Comment on above: Order Comment: Speci men Type: URINE SPECIMENOrdering Facility: [facility] Address: [address] [place] [address] Performed By: #### L [id number] ####[facility] [id number] [place] [id number] [place] pH (U) 6.1 [pH] Normal 4.5-8.0 [facility] Comment on above: Order Comment: Speci men Type: URINE SPECIMENOrdering Facility: [facility] Address: [address] [place] [address] Performed By: #### L [id number] ####[facility] [id number] [place] [id number] [place] SPEC GRAVITY,UR 1.017 Normal 1.003-1.03 5 [facility] Comment on above: Order Comment: Speci men Type: URINE SPECIMENOrdering Facility: [facility] Address: [address] [place] [address] Performed By: #### L [id number] ####[facility] [id number] [place] [address] [place] SPECIMEN VALIDITY QUALITY Specimen quality results within acceptable limits Normal [facility] Comment on above: Order Comment: Speci men Type: URINE SPECIMENOrdering Facility: [facility] Address: [address] [place] [address] Performed By: #### L [id number] ####[facility] [id number] [place] [address] [place] T3Free SerPl-mCncon 11-10-19 25 Free T3 [Mass/Vol] 3.4 pg/mL Normal 2.3-4.1 [facility] Comment on above: Order Comment: Speci men Type: BLOOD SPECIMENOrdering Facility: [facility] Address: [address] [place] [address] Performed By: #### 3 051-0, 3024-7, 08605-9, 53489-5 ####[facility] [id number] [place] [id number] [place] T4 Free SerPl-mCncon 11-09- 025 Free T4 [Mass/Vol] 0.9 ng/dL Normal 0.9-1.7 [facility] Comment on above: Order Comment: Speci men Type: BLOOD SPECIMENOrdering Facility: [facility] Address: [address] [place] [address] Performed By: #### 3 051-0, 3024-7, 39659-6, 19913-7 ####[facility] [id number] [place] [address] [place] TOXICOLOGY SCREEN, ROUTINE U RINEon 11-09-2024 Amphetamines Confirm (U) [Mass/Vol] Negative Normal Negative [facility] Comment on above: Order Comment: Speci men Type: URINE SPECIMENOrdering Facility: [facility] Address: [address] [place] [address] Result Comment: Cuto ff threshold at 1000 ng/mL. Performed By: #### U TOX2 ####[facility] [id number] [place] [address] [place] BARBITURATES, URINE Negative Normal Negative [facility] Comment on above: Order Comment: Speci men Type: URINE SPECIMENOrdering Facility: [facility] Address: [address] [place] [address] Result Comment: Cuto ff threshold at 200 ng/mL. Performed By: #### U TOX2 ####[facility] [id number] [place] [address] [place] BENZODIAZEPINES, URINE Negative Normal Negative [facility] Comment on above: Order Comment: Speci men Type: URINE SPECIMENOrdering Facility: [facility] Address: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 States it started slipping and she grabbed it with her left hand. She rates her pain 7/10. She went to the ER and waited 2 hours then decided to leave and come here. While she was there they soaked in some type of solution Her last tetanus update was in 2020. Review of Systems Constitutional: Negative for chills and fever. Musculoskeletal: Positive for joint pain. Negative for falls and myalgias. Skin: Negative for itching and rash. Neurological: Negative for tingling, sensory change, focal weakness and weakness. LMP 11/03/2015 PAST MEDICAL HISTORY No date: Anxiety disorder 06/02/2019: Dyslipidemia No date: Hypertension No date: Stroke (HCC) No date: Tobacco abuse PAST SURGICAL HISTORY No date: TONSILLECTOMY HX No date: TUBAL LIGATION, ALLERGIES Buspar [Buspirone Hcl] and Wellbutrin [Bupropion Hcl] MEDICATIONS aspirin 81 mg chewable tablet Take 1 tablet by mouth once daily. Cholecalciferol, Vitamin D3, 125 mcg (5,000 unit) cap Take 1 capsule by mouth once daily. cyclobenzaprine (FLEXERIL) 5 mg tablet Take 1 tablet by mouth three times a day as needed. ALPRAZolam (XANAX) 1 mg tablet Take 1 mg by mouth as needed. amLODIPine (NORVASC) 5 mg tablet Take 1 tablet by mouth once daily. lisinopril (ZESTRIL) 40 mg tablet Take 1 tablet by mouth once daily. atorvastatin (LIPITOR) 20 mg tablet Take 1 tablet by mouth once daily. ondansetron orally disintegrating (ZOFRAN ODT) 4 mg disintegrating tablet Take 1 tablet by mouth every 6 hours as needed for nausea/vomiting. COMPOUNDED PRESCRIPTION Home blood pressure kit/monitor. Dx: essential HTN, and CVA. FAMILY HISTORY Problem Relation Age of Onset Hypertension Mother Heart Mother Aneurysm Mother Diabetes Father Heart Father Aneurysm Father Heart Maternal Grandmother Heart Sister Stroke Sister None Brother Social History Tobacco Use Smoking status: Some Days Types: Cigarettes Last attempt to quit: 11/04/2018 Years since quittin.0 Smokeless tobacco: Never Substance Use Topics Alcohol use: No Drug use: No Objective Physical Exam Vitals and nursing note reviewed. Constitutional: Appearance: Normal appearance. Musculoskeletal: General: Swelling, tenderness and signs of injury present. No deformity. Hands: Comments: Patient has full range of motion and strength is intact to left middle and index finger. Skin: General: Skin is warm and dry. Capillary Refill: Capillary refill takes less than 2 seconds. Findings: No bruising, erythema or rash. Neurological: General: No focal deficit present. Mental Status: She is alert. Motor: No weakness. ASSESSMENT/PLAN: 1. Laceration of left index finger without foreign body without damage to nail, initial encounter - ICD9: 883.0, ICD10: S61.211A (primary diagnosis) - ACETAMINOPHEN 500 MG TABLET Wound anesthetized with 1.5 cc's 1 % lidocaine. Wound cleansed with normal saline and povidine and all visible foreign material was removed. Flushed with 50 mL normal saline. Wound edges reapproximated with 2 sutures of 3-0 Prolene. Dry sterile dressing applied. Wound care instructions provided. Return for suture removal in 8-10 days. 2. Laceration of left middle finger without foreign body without damage to nail, initial encounter - ICD9: 883.0, ICD10: S61.213A - ACETAMINOPHEN 500 MG TABLET - Wound anesthetized with 1.5 cc's 1 % lidocaine. Wound cleansed with normal saline and povidine and all visible foreign material was removed. Flushed with 50 mL normal saline. Wound edges reapproximated with 5 sutures of 4-0 prolene. Dry sterile dressing applied. Wound care instructions provided. Return for suture removal in 8-10 days. - Follow-up with your PCP in 3-5 days if symptoms have not improved or sooner if symptoms worsen - Discussed red flags and need for immediate medical evaluation if any occur. - Discussed supportive care treatment with fluids, rest and analgesia. - Discussed expected course of illness SHIRA Garay Kathy, APRN.CNP 11/15/2023 6:28 PM Addendum ASSESSMENT/PLAN: 1. Laceration of left index finger without foreign body without damage to nail, initial encounter - ICD9: 883.0, ICD10: S61.211A (primary diagnosis) - ACETAMINO (more content not included)... Normal [facility] Emergency Department Summary on 09-15-2023 Emergency Department Summary [facility] Medical Records Department [address] [place] [address] Emergency Department Summary 09/15/23 MR#: [id number] Acct: [id number] Name: DAMARI SON Rep #: [id number] : 1965 57 From: Jamshid Faye MD PCP: Dr. Lonnie Brower, DO Status:REG ER Location: ED HPI HPI - Fall History of Present Illness Chief Complaint: Lower Extremity Injury Informant: patient Narrative Narrative: 57-year-old female states she was getting out of bed and her left foot got caught and she fell out of it landing on the medial aspect of her left knee which has been hurting severely since this happened this morning. She had a stroke in her left side has been weak ever since, she thinks it may be related. She states this was purely accidental. She states if she puts her left lower extremity in certain positions she is hurting a lot less but any movement or externally rotating at the left hip and bending her knee is really painful. Denies any other injury. Patient states there is also a nodule that has appeared on her left petersen that she is concerned about. She states it has been there for couple weeks and is not growing is not hurting but she wonders why. [facility] Medical History Hypercholesteremia HTN (hypertension) Stroke Home Medications ???Medication ???Instructions ???Recorded ???Last Taken ???Type lisinopril 20 mg tablet 40 mg PO DAILY 10/31/17 Unknown History amlodipine 5 mg tablet 5 mg PO DAILY 01/06/20 Unknown History aspirin 81 mg chewable tablet 81 mg PO DAILY@0800 01/06/20 Unknown History atorvastatin 20 mg tablet 20 mg PO DAILY 01/06/20 Unknown History hydrocodone-acetaminophen 5-325mg 1 tab PO Q6H PRN PRN Pain 2 days 09/15/23 Unknown Rx 5mg-325mg #5 TABLETS Allergy/AdvReac Type Severity Reaction Status Date / Time codeine Allergy Itching Verified 09/15/23 19:15 Social History Smoking Status: Current every day smoker tobacco type: cigarettes ROS ROS ED Constitutional Constitutional ED: Denies chills or fever(s) Musculoskeletal Musculoskeletal: Reports extremity pain; Denies neck pain Integumentary Denies Abrasions, rash or wounds Neurologic Neurologic: Reports other Details: Pre-existing left-sided weakness unchanged EXAM Physical Exam Const Vital Signs: 09/15/23 19:13 Temperature 97.8 F Temperature Source Temporal Pulse Rate 91 Respiratory Rate 18 Blood Pressure 152/90 H Blood Pressure Mean 110 Pulse Ox 95 Oxygen Delivery Method Room Air Positive well nourished and well developed General Appearance ED: well developed and NAD Neck full ROM and supple Back/Spine normal ROM and normal to inspection Extremity Extremity Narrative: Limited range of motion left knee due to pain. Tender at the joint line and distal femur medially. No effusion. Some localized swelling at the medial knee. Extensor mechanism is intact, there is pain with stressing the MCL but no significant laxity. The LCL is without pain on stressing and without laxity, I am not able to evaluate the ACL and PCL due to the patient's inability to bend the knee at all. Neurovascular intact distally with a pulse distally. There is also a small firm nontender nodule without discoloration over the mid left petersen. Neuro oriented x3 Sensorium / Orientation: alert Psych mental status grossly normal and thought process normal Skin no wounds Rashes: no rashes MDM MDM MDM Narrative Medical decision making narrative: 4 view x-ray series of the left knee on my interpretation is negative for acute fracture radiology was in agreement. Also obtain [id number] series, 2 views on my interpretation shows no bony prominence where the nodule on her petersen lies. Reassured, advised warm compresses of this area, it is an unknown structure, whether subcutaneous tissue or superficial vein. She has a brace for her knee, she was given tramadol 1 something more for pain because it hurts so bad. Given Naprosyn and I will give her a prescription for a few [place] but giving it to her now would block the effects that she was just given tramadol. Radiography Diagnostic Testing: Clinical Impression(s) from Imaging Studies Tibia/Fibula X-Ray 09/15/23 19:57 IMPRESSION: Negative left tibia and fibula x-rays. Electronically Signed: Gurvinder Perez DO at 20:42 EDT , Knee X-Ray 09/15/23 20:10 IMPRESSION: Degenerative changes. No acute findings. Electronically Signed: Gurvinder Perez DO at 20:42 EDT Reading Location ID and State: [id number] / [place] Tel [phone] (more content not included)... Normal [facility] Knee 4 or More Viewson 09-14 Knee 4 or More Views [facility] Imaging Services [address] [place] [address] Knee 4 or More Views MR#: [id number] Acct: [id number] Name: DAMARI SON Rep #: [id number] : 1965 F 57 From: Gurvinder quezada DO PCP: Dr. Lonnie Brower, Status: REG ER Study: Knee 4 or More Views Date of Exam: 09/15/23 Exam# [id number] Ordering Dr: Jamshid Faye MD [id number] EXAM: XR LEFT KNEE COMPLETE, 4 OR MORE VIEWS CLINICAL INDICATION: injury TECHNIQUE: Four or more views of the left knee. COMPARISON: Tibia on the same date.. FINDINGS: BONES/JOINTS: Mild weightbearing compartment and patellofemoral marginal osteophytosis. No acute fracture. No subluxation. Normal alignment. Preservation of the joint space. No sclerotic or destructive changes observed. SOFT TISSUES: No significant abnormality. No soft tissue swelling or gas. No radiopaque foreign body. RAD/Knee 4 or More Views IMPRESSION: Degenerative changes. No acute findings. Electronically Signed: Gurvinder Perez DO at 20:42 EDT Reading Location ID and State: [facility] / [place] Tel , Service support , CC: Dr. Jamshid Faye MD; Dr. Lonnie Brower DO Compliance Administrator: Signed Normal [facility] Tibia Fibula 2 Viewson 09-14 Tibia Fibula 2 Views [facility] Imaging Services [address] [place] [id number] Tibia Fibula 2 Views MR#: [id number] Acct: [id number] Name: DAMARI SON Rep #: [id number] : 1965 F 57 From: Gurvinder quezada DO PCP: Dr. Lonnie Brower DO Status: REG ER Study: Tibia Fibula 2 Views Date of Exam: 09/15/23 Exam# [id number] Ordering Dr: Jamshid Faye MD [id number] EXAM: XR LEFT TIBIA AND FIBULA, 2 VIEWS CLINICAL INDICATION: nodule on petersen TECHNIQUE: Frontal and lateral views of the left tibia and fibula. COMPARISON: Knee on the same date. FINDINGS: BONES/JOINTS: No significant abnormality. No acute fracture. No subluxation. Normal alignment. Preservation of the joint space. No sclerotic or destructive changes observed. SOFT TISSUES: No significant abnormality. No soft tissue swelling or gas. No radiopaque foreign body. RAD/Tibia Fibula 2 Views IMPRESSION: Negative left tibia and fibula x-rays. Electronically Signed: Gurvinder Perez DO at 20:42 EDT , CC: Dr. Jamshid Faye MD; Dr. Lonnie Brower DO Compliance Administrator: Signed Normal [facility] MR Brain WO and W contrast I Von 09-05-2023 IMPRESSION: No acute brain findings. 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 Small remote left cerebellar infarcts. Both areas appear unchanged. Moderate background chronic microvascular change Based on the axial T2 flow void pattern, proximal intracranial arterial vasculature, major cortical draining veins, and dural venous sinuses are patent. Concordant appearance after gadolinium. Right transverse sinus is dominant. Compliance Administrator: [facility]SC[facility] Transcribe Date/Time: Sep 05 2023 3:06P Dictated by : ELIN TRAN MD This examination was interpreted and the report reviewed and electronically signed by: ELIN TRAN MD on Sep 05 2023 3:10PM [facility] DIVISION OF RADIOLOGY * * *Final Report* * * DATE OF EXAM: Sep 05 2023 2:05PM [facility] 0295 - MRI BRAIN WO/W IVCON / PROCEDURE REASON: multiple diagnoses * * * * Physician Interpretation * * * * EXAMINATION: MRI BRAIN WO/W IVCON CLINICAL HISTORY: Bilateral arm weakness and paresthesias. Left arm paresthesia. History of infarct. TECHNIQUE: Routine brain MRI protocol without and with contrast including diffusion images. MQ: [id number] Contrast: 13 mL Dotarem IV COMPARISON: Previous MRI of the brain 12/11/2018. RESULT: There is no restricted diffusion on this examination to suggest focal acute ischemia or pathologic brain parenchymal cellularity. Stable encephalomalacia which has partially collapsed since the prior study and shows a thin rim of blood degradation products in the periphery. This extends from the midportion of the lentiform nuclei into the adjacent atkins radiata and centrum semiovale. Corresponding ex vacuo prominence of the right lateral ventricle. Small remote infarcts are present in the left cerebellum. Small remote lacunar infarct in the left thalamus. Otherwise moderate background chronic microvascular change. Aside from the areas of encephalomalacia, gross brain volume remains within expected limits for age. No abnormal brain enhancement after gadolinium. Hypothalamic and pituitary region normal. Craniovertebral junction normal. Cerebellar tonsils are normally positioned relative to the foramen magnum. Major intracranial arterial structures and dural venous sinuses show typical flow void consistent with patency by spin echo criteria. Concordant appearance after gadolinium. Right transverse sinus is dominant. Paranasal sinus chambers, mastoid air cells and middle ear cavities are clear. Orbits are unremarkable. DIVISION OF RADIOLOGY Provider, [facility] - 09/05/2023 * * *Final Report* * * DATE OF EXAM: Sep 05 2023 2:05PM [facility] 0295 - MRI BRAIN WO/W IVCON / PROCEDURE REASON: multiple diagnoses * * * * Physician Interpretation * * * * EXAMINATION: MRI BRAIN WO/W IVCON CLINICAL HISTORY: Bilateral arm weakness and paresthesias. Left arm paresthesia. History of infarct. TECHNIQUE: Routine brain MRI protocol without and with contrast including diffusion images. MQ: [id number] Contrast: 13 mL Dotarem IV COMPARISON: Previous MRI of the brain 12/11/2018. RESULT: There is no restricted diffusion on this examination to suggest focal acute ischemia or pathologic brain parenchymal cellularity. Stable encephalomalacia which has partially collapsed since the prior study and shows a thin rim of blood degradation products in the periphery. This extends from the midportion of the lentiform nuclei into the adjacent atkins radiata and centrum semiovale. Corresponding ex vacuo prominence of the right lateral ventricle. Small remote infarcts are present in the left cerebellum. Small remote lacunar infarct in the left thalamus. Otherwise moderate background chronic microvascular change. Aside from the areas of encephalomalacia, gross brain volume remains within expected limits for age. No abnormal brain enhancement after gadolinium. Hypothalamic and pituitary region normal. Craniovertebral junction normal. Cerebellar tonsils are normally positioned relative to the foramen magnum. Major intracranial arterial structures and dural venous sinuses show typical flow void consistent with patency by spin echo criteria. Concordant appearance after gadolinium. Right transverse sinus is dominant. Paranasal sinus chambers, mastoid air cells and middle ear cavities are clear. Orbits are unremarkable. IMPRESSION IMPRESSION: No acute brain findings. 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 Small remote left cerebellar infarcts. Both areas appear unchanged. Moderate background chronic microvascular change Based on the axial T2 flow void pattern, proximal intracranial arterial vasculature, major cortical draining veins, and dural venous sinuses are patent. Concordant appearance after gadolinium. Right transverse sinus is dominant. Compliance Administrator: PSCB Transcribe Date/Time: Sep 05 2023 3:06P Dictated by : ELIN TRAN MD This examination was interpreted and the report reviewed and electronically signed by: ELIN TRAN MD on Sep 05 2023 3:10PM EST [facility] Radiology Study observation (narrative) [facility] MR Brain WO and W contrast I VOrdered By: Ccf Provider on 09-05-2023 [facility] CBC W Auto Differential pane l (Bld)on 08-08-2023 Basophils (Bld) [#/Vol] 0.20 10*3/uL High [facility] Basophils/100 WBC (Bld) 2.0 % [facility] Differential cell count method Nom (Bld) Manual [facility] Eosinophils (Bld) [#/Vol] 0.30 10*3/uL [facility] Eosinophils/100 WBC (Bld) 3.0 % [facility] Erythrocyte distribution width (RBC) [Ratio] 13.5 % 11.5 - 15.0 % [facility] Hematocrit (Bld) [Volume fraction] 41.7 % 36.0 - 46.0 % [facility] Hemoglobin (Bld) [Mass/Vol] 13.4 g/dL 11.5 - 15.5 g/dL [facility] Interpretation and review of laboratory results Abnormal [facility] Lymphocytes (Bld) [#/Vol] 5.51 10*3/uL High [facility] Lymphocytes/100 WBC (Bld) 56.0 % [facility] MCH (RBC) [Entitic mass] 27.9 pg 26.0 - 34.0 pg [facility] MCHC (RBC) [Mass/Vol] 32.1 g/dL 30.5 - 36.0 g/dL [facility] MCV (RBC) [Entitic vol] 86.7 fL 80.0 - 100.0 fL [facility] Monocytes (Bld) [#/Vol] 0.89 10*3/uL High NINF [facility] Monocytes/100 WBC (Bld) 9.0 % [facility] Neutrophils (Bld) [#/Vol] 2.95 10*3/uL [facility] Neutrophils/100 WBC (Bld) 30.0 % [facility] Nucleated RBC (Bld) [#/Vol] NINF [facility] Nucleated RBC/100 WBC (Bld) [Ratio] 0.0 % /100 WBC [facility] Platelet mean volume (Bld) [Entitic vol] 11.8 fL 9.0 - 12.7 fL [facility] Platelets (Bld) [#/Vol] 262 10*3/uL [facility] Platelets Estimate (Bld) [#/Vol] Adequate [facility] RBC (Bld) [#/Vol] 4.81 10*6/uL 3.90 - 5.20 m/uL [facility] Red Cell Morph Reviewed: unremarkable [facility] WBC (Bld) [#/Vol] 9.84 10*3/uL [facility] This is an appended report. These results have been appended to a previously verified report. [facility] C-REACTIVE PROTEINon 024 CRP [Mass/Vol] mg/dL NINF - 0.9 mg/dL [facility] CRP [Mass/Vol]on 08-07-2023 Interpretation and review of laboratory results Normal [facility] Cobalamin (Vitamin B12) [Mas s/Vol]on 08-07-2023 Interpretation and review of laboratory results Normal [facility] Comprehensive metabolic 2000 panelon 08-07-2023 Albumin [Mass/Vol] 4.3 g/dL 3.9 - 4.9 g/dL [facility] ALP [Catalytic activity/Vol] 91 U/L 34 - 123 U/L [facility] ALT [Catalytic activity/Vol] 16 U/L 7 - 38 U/L [facility] Anion gap [Moles/Vol] 11 mmol/L 9 - 18 mmol/L [facility] AST [Catalytic activity/Vol] 18 U/L 13 - 35 U/L [facility] Bilirubin [Mass/Vol] 0.2 mg/dL 0.2 - 1 .3 mg/dL [facility] Calcium [Mass/Vol] 9.5 mg/dL 8.5 - 10. 2 mg/dL [facility] Chloride [Moles/Vol] 107 mmol/L High 97 - 10 5 mmol/L [facility] CO2 [Moles/Vol] 22 mmol/L 22 - 30 mmol/L [facility] Creatinine [Mass/Vol] 0.74 mg/dL 0.58 - 0.96 mg/dL [facility] GFR/1.73 sq M.predicted among non-blacks MDRD (S/P/Bld) [Vol rate/Area] 96 mL/min/{1.73_m2} - PINF [facility] Comment on above: Estimated Glomerular Filtration Rate (eGFR) is calculated using the 2020 CKD-EPI creatinine equation. This equation utilizes serum creatinine, sex, and age as parameters. The creatinine assay has traceable calibration to isotope dilution-mass spectrometry. Refer to KDIGO guidelines for clinical interpretation. In patients with unstable renal function, e.g. those with acute kidney injury, the eGFR may not accurately reflect actual GFR. Glucose [Mass/Vol] 90 mg/dL 74 - 99 mg/dL [facility] Comment on above: The [place] Diabete s Association (ADA) provides guidance for cutoff values for fasting glucose and random glucose. The ADA defines fasting as no caloric intake for at least 8 hours. Fasting plasma glucose results between 100 to 125 mg/dL indicate increased risk for diabetes (prediabetes). Fasting plasma glucose results greater than or equal to 126 mg/dL meet the criteria for diagnosis of diabetes. In the absence of unequivocal hyperglycemia, results should be confirmed by repeat testing. In a patient with classic symptoms of hyperglycemia or hyperglycemic crisis, random plasma glucose results greater than or equal to 200 mg/dL meet the criteria for diagnosis of diabetes. Reference: Standards of Medical Care in Diabetes 2016, [place] [employer]. Diabetes Care. 2016.39(Suppl 1). Interpretation and review of laboratory results Abnormal [facility] Potassium [Moles/Vol] 4.0 mmol/L 3.7 - 5.1 mmol/L [facility] Protein [Mass/Vol] 6.9 g/dL 6.3 - 8.0 g/dL [facility] Sodium [Moles/Vol] 140 mmol/L 136 - 144 mmol/L [facility] Urea nitrogen [Mass/Vol] 10 mg/dL 7 - 21 mg/dL [facility] No Panel Informationon 08-06 Interpretation and review of laboratory results Normal [facility] T3, FREEon 08-07-2023 Free T3 [Mass/Vol] 3.9 pg/mL 2.3 - 4.1 pg/mL [facility] T4 FREE/FREE THYROXINEon Free T4 [Mass/Vol] 1.0 ng/dL 0.9 - 1.7 ng/dL [facility] THYROID STIMULATING HORMONEo n 08-07-2023 TSH Qn 1.800 m[IU]/L [facility] VITAMIN B12on 08-07-2023 Cobalamin (Vitamin B12) [Mass/Vol] 483 pg/mL 232 - 1245 pg/mL [facility] CBC panel Auto (Bld)on 11-19 Erythrocyte distribution width (RBC) [Ratio] 13.3 % 11.5 - 15.0 % [facility] Hematocrit (Bld) [Volume fraction] 42.2 % 36.0 - 46.0 % [facility] Hemoglobin (Bld) [Mass/Vol] 13.7 g/dL 11.5 - 15.5 g/dL [facility] MCH (RBC) [Entitic mass] 27.4 pg 26.0 - 34.0 pg [facility] MCHC (RBC) [Mass/Vol] 32.5 g/dL 30.5 - 36.0 g/dL [facility] MCV (RBC) [Entitic vol] 84.4 fL 80.0 - 100.0 fL [facility] Nucleated RBC (Bld) [#/Vol] <0.01 k/uL [facility] Platelet mean volume (Bld) [Entitic vol] 11.7 fL 9.0 - 12.7 fL [facility] Platelets (Bld) [#/Vol] 296 10*3/uL 150 - 400 k/uL [facility] RBC (Bld) [#/Vol] 5.00 10*6/uL 3.90 - 5.20 m/uL [facility] WBC (Bld) [#/Vol] 9.08 10*3/uL 3.70 - 11.00 k/uL [facility] HbA1c (Bld)on 11-19-2022 Average glucose Estimated from glycated hemoglobin (Bld) [Mass/Vol] 114 mg/dL [facility] HbA1c (Bld) [Mass fraction] 5.6 % 4.3 - 5.6 % [facility] MISCon 11-22-2018 Misc. Send Out See Comments [facility] ([place]) Comment on above: Order Comment: ZPCAG Result Comment: Sumaya samuelse reference lab report scanned to EMR. Performed By: #### B MP, TROP, GFR #### [place] [address] #### CBC, ADIFF, ANEU #### [place] [address] APCVon 11-11-2018 APC Factor V Resistance 2.8 ratio Normal [facility] ([place]) Comment on above: Result Comment: This APCV result demonstrates no Resistance to Activated Protein C. APC Factor V Resistance Reference Range: <= 2.3 Positive > 2.3 Negative Performed By: #### B MP, TROP, GFR #### [place] [address] #### CBC, ADIFF, ANEU #### [place] [address] AT3on 11-11-2018 Anti-Thrombin III 90 % Normal 84-126 [facility] ([place]) Comment on above: Performed By: #### B MP, TROP, GFR #### [place] [address] #### CBC, ADIFF, ANEU #### [place] [address] PROTCon 11-11-2018 Protein [Mass/Vol] 53 % Low >=80 [facility] ([place]) Comment on above: Performed By: #### B MP, TROP, GFR #### [place] [address] #### CBC, ADIFF, ANEU #### [place] [address] PRSFAon 11-11-2018 Protein [Mass/Vol] 101 % Normal 55-124 [facility] ([place]) Comment on above: Result Comment: Prot ein S Type II deficiency (very rare) is not detected by this assay. (Pathophysiology of Haemostasis and Thrombosis 04: 33:202-205 and Thrombosis Haemostasis 2000; 84:918) Performed By: #### B MP, TROP, GFR #### [place] [address] #### CBC, ADIFF, ANEU #### [place] [address] CIRANon 11-07-2018 Dil Zain Viper Venom 28.6 seconds Low 30.0-42.0 [facility] ([place]) Comment on above: Performed By: #### B MP, TROP, GFR #### [place] [address] #### CBC, ADIFF, ANEU #### [place] [address] [place] Interpretation See Below Normal [facility] ([place]) Comment on above: Result Comment: No e vidence of lupus anticoagulant. Although results may represent valid findings for Lupus Anticoagulant, DRVVT results may be affected by presence of direct thrombin inhibitors, such as argatroban, dabigatran (Pradaxa) and Bivalirudin (Angiomax),and direct Xa inhibitors, such as rivaroxaban (Xarelto) and apixaban (Eliquis). Interpret Lupus Anticoagulant results with clinical correlation. Performed By: #### B MP, TROP, GFR #### [place] [address] #### CBC, ADIFF, ANEU #### [place] [address] Platelet neutraliz. Negative Normal [facility] ([place]) Comment on above: Performed By: #### B MP, TROP, GFR #### [place] [address] #### CBC, ADIFF, ANEU #### [place] [address] PTGENon 11-07-2018 PT Gene Mut (NOTE) Normal [facility] ([place]) Comment on above: Result Comment: Perf orming Pathologist: Dr. Andi Steward MD Interpretation: PT Gene Mutation Result: NORMAL PT Gene Mutation Interpretation: Interpretation: The DNA sample is negative for the c.*97G>A variant (legacy name 17530J>A) in the 3' untranslated region of the Factor II (F2) gene. This result is not associated with an increased risk of thromboembolic disease. Thromboembolic disease is a multifactorial disorder and other causes are not excluded by this result. Method: Isolated Genomic DNA from the patient's blood specimen is evaluated for the c*97G>A ([id number]) variant of the F2 gene [RefSeq [id number];GRCh38/hg38] by multiplex polymerase chain reaction (PCR) followed by melting curve analysis. Limitations: This assay is designed to detect the c.*97G>A (45504B>A) variant in the F2 gene. Uncommon variants or single nucleotide polymorphisms may affect binding of probes and may rarely result in false negative, false positive or indeterminate results. This assay does not detect other disease-associated rare variants in F2 or other causes of thromboembolic disease. This test was developed and its performance characteristics determined by [facility]'s [facility] [place] ([facility]). It has not been cleared or approved by the FDA. [facility] is regulated under CLIA as certified to perform high-complexity testing. This test is used for clinical purpose. It should not be regarded as investigational or for research. References: 1) Inherited Thrombophilias in . ACOG Practice Bulletin. No. 197. [place] [employer]. Obstet Gynecol 2018;132:e18???34. 2) Judyt SR, Jesus FR, Frederic PH, and Lisbet NEVES. A common genetic variation in the 3'-untranslated region of the prothrombin gene is associated with elevated plasma prothrombin levels and an increase in venous thrombosis. Blood 88:3698-703,1995. 3) Yumiko I, Raul V, Mitra C, Karine Ayala. Prothrombin 59940I>T: 16 new cases, association with the 88820P>G polymorphism, and literature review. J Thromb Haemost. 2009;9:1585-7. Performed By: [facility] [address] [place] [address] Flatwork Washer: Brittaney Milton M.D. CLIA#: [id number] Phone#: Performed By: #### B MP, TROP, GFR #### [address] [address] #### CBC, ADIFF, ANEU #### [address] [address] LIPIDon 11-05-2018 Cholesterol [Mass/Vol] 165 mg/dL Normal 0-200 [facility] ([place]) Comment on above: Result Comment: Chol esterol Reference Interval: Less than 200 Desirable 200-239 Borderline high risk 240 and above High risk Performed By: #### B MP, TROP, GFR #### [place] [address] #### CBC, ADIFF, ANEU #### [address] [address] Cholesterol in HDL [Mass/Vol] 40 mg/dL Normal 40-60 [facility] ([place]) Comment on above: Performed By: #### B MP, TROP, GFR #### [place] [address] #### CBC, ADIFF, ANEU #### [address] [address] Cholesterol in LDL [Mass/Vol] 108 mg/dL Normal 0-130 [facility] ([place]) Comment on above: Performed By: #### B MP, TROP, GFR #### [place] [address] #### CBC, ADIFF, ANEU #### [address] [address] Triglyceride [Mass/Vol] 84 mg/dL Normal 0-150 [facility] ([place]) Comment on above: Result Comment: Trig lyceride Reference Interval: Less than 150 Normal 150-199 Borderline high risk 200-499 High risk 500 or higher Very high risk Performed By: #### B MP, TROP, GFR #### [place] [id number] #### CBC, ADIFF, ANEU #### [address] [address] MRA HEAD W/O CONTRASTon 10-08 MRA HEAD W/O CONTRAST ORIGINAL MRA HEAD W/O CONTRAST Clinical Statement: stroke. TECHNIQUE: [id number] MRA of the head. Source data and maximum intensity projections (MIPs) were reviewed. COMPARISON: Head CT 11/04/2018. FINDINGS: There is normal flow-related signal in the larger intracranial arteries. Smaller distal RIGHT MCA branches demonstrate mild focal stenosis. No large branch artery occlusion or saccular aneurysm is demonstrated. There is an ACOM artery. The PCOM arteries are small or absent. IMPRESSION: No large vessel occlusion. Distal RIGHT MCA branches demonstrate mild stenoses which are favored to be atherosclerotic. Interpreted By: Joshua Oliver Preliminary Report By: Joshua Oliver Electronically Signed By: Jsohua Oliver Dictated Date: 11/05/2018 4:51:34 PM Prelim Date: 11/05/2018 5:04:40 PM Sign Date: 11/05/2018 6:37:18 PM Normal [facility] ([place]) VL CAROTID BILATERAL DUPLEXo n 11-05-2018 VL CAROTID BILATERAL DUPLEX ORIGINAL Bilateral carotid artery ultrasound, grayscale study with duplex Doppler exam including color Doppler interrogation and waveform analysis HISTORY: CVA/stroke COMPARISON: None Note: Stenosis measurements are made with SRU consensus criteria where applicable. Bilaterally, the common carotid arteries show minimal intimal thickening and atherosclerosis. The vertebral arteries are patent bilaterally with antegrade flow. At the proximal RIGHT ICA, there is very minimal atherosclerotic plaque with minimal calcification. There is a visual stenosis of approximately 24% diameter reduction. However, there is no turbulent flow or significant velocity acceleration present. The maximum RIGHT ICA. Systolic velocity is 68 cm/s. This is normal. Very minimal plaque is present at the LEFT ICA origin without significant focal narrowing. There is no LEFT ICA velocity acceleration or turbulent flow. Maximum LEFT ICA peak systolic velocity is 72 cm/s. This is normal. IMPRESSION: No hemodynamically significant ICA stenosis is identified on this exam. Interpreted By: Joshua Aguirre MD Preliminary Report By: Joshua Aguirre MD Electronically Signed By: Joshua Aguirre MD Dictated Date: 11/05/2018 9:52:01 AM Prelim Date: 11/05/2018 9:52:01 AM Sign Date: 11/05/2018 9:54:10 AM Normal [facility] ([place]) .Auto Diffon 11-04-2018 Ammonia (P) [Mass/Vol] 0.70 10 3/mcL Normal 0.15-1.00 [facility] ([place]) Comment on above: Performed By: #### B MP, TROP, GFR #### [place] [address] #### CBC, ADIFF, ANEU #### [address] [address] Basophils (Bld) [#/Vol] 0.00 10 3/mcL Normal 0.00-0.19 [facility] ([place]) Comment on above: Performed By: #### B MP, TROP, GFR #### [place] [address] #### CBC, ADIFF, ANEU #### [address] [address] Basophils/100 WBC (Bld) 0.6 % Normal 0.0-2.5 [facility] ([place]) Comment on above: Performed By: #### B MP, TROP, GFR #### [place] [address] #### CBC, ADIFF, ANEU #### [address] [address] Eosinophils (Bld) [#/Vol] 0.10 10 3/mcL Normal 0.00-0.40 [facility] ([place]) Comment on above: Performed By: #### B MP, TROP, GFR #### [place] [address] #### CBC, ADIFF, ANEU #### [address] [address] Eosinophils/100 WBC (Bld) 0.7 % Normal 0.0-7.0 [facility] ([place]) Comment on above: Performed By: #### B MP, TROP, GFR #### [place] [address] #### CBC, ADIFF, ANEU #### [address] [address] Lymphocytes (Bld) [#/Vol] 3.40 10 3/mcL Normal 0.77-3.85 [facility] ([place]) Comment on above: Performed By: #### B MP, TROP, GFR #### [address] [address] #### CBC, ADIFF, ANEU #### [address] [address] Lymphocytes/100 WBC (Bld) 41.7 % Normal 10.0-50.0 [facility] ([place]) Comment on above: Performed By: #### B MP, TROP, GFR #### [place] [address] #### CBC, ADIFF, ANEU #### [address] [address] Monocytes/100 WBC (Bld) 8.8 % Normal 1.7-13.0 [facility] ([place]) Comment on above: Performed By: #### B MP, TROP, GFR #### [place] [address] #### CBC, ADIFF, ANEU #### [address] [address] Neutrophils/100 WBC (Bld) 48.2 % Normal 37.0-80.0 [facility] ([place]) Comment on above: Performed By: #### B MP, TROP, GFR #### [place] [address] #### CBC, ADIFF, ANEU #### [address] [address] .GFRon 11-04-2018 GFR Non- 88 ml/min/1.73sqm Normal [facility] ([place]) Comment on above: Result Comment: GFR Population mean for , Non- Americans Ages 20-29 = 116 mL/min/1.73 sq.m. Ages 30-39 = 107 mL/min/1.73 sq.m. Ages 40-49 = 99 mL/min/1.73 sq.m. Ages 50-59 = 93 mL/min/1.73 sq.m. Ages 60-69 = 85 mL/min/1.73 sq.m. Ages 70+ = 75 mL/min/1.73 sq.m. Chronic Kidney Disease: Less than 60 mL/min/1.73 square meters End Stage Renal Disease: Less than 15 mL/min/1.73 square meters Performed By: #### B MP, TROP, GFR #### [place] [address] #### CBC, ADIFF, ANEU #### [address] [address] GFR 107 ml/min/1.73sqm Normal [facility] ([place]) Comment on above: Result Comment: GFR Population mean for , Non- Americans Ages 20-29 = 116 mL/min/1.73 sq.m. Ages 30-39 = 107 mL/min/1.73 sq.m. Ages 40-49 = 99 mL/min/1.73 sq.m. Ages 50-59 = 93 mL/min/1.73 sq.m. Ages 60-69 = 85 mL/min/1.73 sq.m. Ages 70+ = 75 mL/min/1.73 sq.m. Chronic Kidney Disease: Less than 60 mL/min/1.73 square meters End Stage Renal Disease: Less than 15 mL/min/1.73 square meters Performed By: #### B MP, TROP, GFR #### [place] [address] #### CBC, ADIFF, ANEU #### [address] [address] .NEUABSon 11-04-2018 Neutrophils (Bld) [#/Vol] 4.00 10 3/mcL Normal 2.85-6.16 [facility] ([place]) Comment on above: Performed By: #### B MP, TROP, GFR #### [place] [address] #### CBC, ADIFF, ANEU #### [address] [address] .Urinalysis Microscopic (AO) on 11-04-2018 RBC (U) [#/Vol] 0-5 None Seen [facility] ([place]) Comment on above: Performed By: #### U A, UAMICAO #### [place] [address] UA Squam Epithelial 0-5 None Seen [facility] ([place]) Comment on above: Performed By: #### U A, UAMICAO #### [place] [address] UA WBC 0-5 None Seen [facility] ([place]) Comment on above: Performed By: #### U A, UAMICAO #### [place] [address] BMPon 11-04-2018 Calcium [Mass/Vol] 9.3 mg/dL Normal 8.4-10.2 [facility] ([place]) Comment on above: Performed By: #### B MP, TROP, GFR #### [place] [address] #### CBC, ADIFF, ANEU #### [address] [address] Chloride [Moles/Vol] 104 mmol/L Normal 98-107 [facility] ([place]) Comment on above: Performed By: #### B MP, TROP, GFR #### [place] [address] #### CBC, ADIFF, ANEU #### [address] [address] CO2 [Moles/Vol] 28 mmol/L Normal 22-29 [facility] ([place]) Comment on above: Performed By: #### B MP, TROP, GFR #### [place] [address] #### CBC, ADIFF, ANEU #### [address] [address] Creatinine [Mass/Vol] 0.70 mg/dL Normal 0.55-1.02 [facility] ([place]) Comment on above: Performed By: #### B MP, TROP, GFR #### [place] [address] #### CBC, ADIFF, ANEU #### [address] [address] Electrolyte Balance 9.0 mEq/L Normal [facility] ([place]) Comment on above: Performed By: #### B MP, TROP, GFR #### [address] [address] #### CBC, ADIFF, ANEU #### [address] [address] Glucose [Mass/Vol] 84 mg/dL Normal 70-105 [facility] ([place]) Comment on above: Performed By: #### B MP, TROP, GFR #### [place] [address] #### CBC, ADIFF, ANEU #### [address] [address] Potassium [Moles/Vol] 3.7 mmol/L Normal 3.5-5.1 [facility] ([place]) Comment on above: Performed By: #### B MP, TROP, GFR #### [place] [address] #### CBC, ADIFF, ANEU #### [address] [address] Sodium [Moles/Vol] 141 mmol/L Normal 136-145 [facility] ([place]) Comment on above: Performed By: #### B MP, TROP, GFR #### [place] [address] #### CBC, ADIFF, ANEU #### [address] [address] Urea nitrogen [Mass/Vol] 12 mg/dL Normal 7-18 [facility] ([place]) Comment on above: Performed By: #### B MP, TROP, GFR #### [place] [address] #### CBC, ADIFF, ANEU #### [address] [address] Urea nitrogen/Creatinine [Mass ratio] 17 ratio Normal 7-27 [facility] ([place]) Comment on above: Performed By: #### B MP, TROP, GFR #### [place] [id number] #### CBC, ADIFF, ANEU #### [address] [address] CBCon 11-04-2018 Erythrocyte distribution width (RBC) [Ratio] 13.5 % Normal 11.5-14.5 [facility] ([place]) Comment on above: Performed By: #### B MP, TROP, GFR #### [place] [address] #### CBC, ADIFF, ANEU #### [address] [address] Hematocrit (Bld) [Volume fraction] 40.5 % Normal 37.0-47.0 [facility] ([place]) Comment on above: Performed By: #### B MP, TROP, GFR #### [place] [address] #### CBC, ADIFF, ANEU #### [address] [address] Hemoglobin (Bld) [Mass/Vol] 13.6 G/dL Normal 12.0-16.0 [facility] ([place]) Comment on above: Performed By: #### B MP, TROP, GFR #### [place] [address] #### CBC, ADIFF, ANEU #### [address] [address] MCH (RBC) [Entitic mass] 28.3 pg Normal 27.0-31.2 [facility] ([place]) Comment on above: Performed By: #### B MP, TROP, GFR #### [place] [address] #### CBC, ADIFF, ANEU #### [address] [address] MCHC (RBC) [Mass/Vol] 33.5 G/dL Normal 33.0-37.0 [facility] ([place]) Comment on above: Performed By: #### B MP, TROP, GFR #### [place] [address] #### CBC, ADIFF, ANEU #### [address] [address] MCV (RBC) [Entitic vol] 84.3 fL Normal 80.0-94.0 [facility] ([place]) Comment on above: Performed By: #### B MP, TROP, GFR #### [place] [address] #### CBC, ADIFF, ANEU #### [address] [address] Platelet mean volume (Bld) [Entitic vol] 9.2 fL Normal 7.4-10.4 [facility] ([place]) Comment on above: Performed By: #### B MP, TROP, GFR #### [place] [address] #### CBC, ADIFF, ANEU #### [address] [address] Platelets (Bld) [#/Vol] 241 10 3/mcL Normal 130-400 [facility] ([place]) Comment on above: Performed By: #### B MP, TROP, GFR #### [place] [address] #### CBC, ADIFF, ANEU #### [address] [address] RBC (Bld) [#/Vol] 4.81 10 6/mcL Normal 4.20-5.40 [facility] ([place]) Comment on above: Performed By: #### B MP, TROP, GFR #### [place] [address] #### CBC, ADIFF, ANEU #### [address] [address] WBC (Bld) [#/Vol] 8.30 10 3/mcL Normal 4.60-10.80 [facility] ([place]) Comment on above: Performed By: #### B MP, TROP, GFR #### [place] [address] #### CBC, ADIFF, ANEU #### [facility] [address] [place], [place] [address] CT HEAD OR BRAIN W/O CONTRAS Ton 11-04-2018 CT HEAD OR BRAIN W/O CONTRAST ORIGINAL Head CT, 11/04/2018 3:21 PM INDICATION: change in mental status/weakness/aphasia COMPARISON: No diagnostic images are available. TECHNIQUE: Routine non-contrast head CT. This exam was performed according to our departmental dose optimization program, and includes the following measures where applicable: automated exposure control, adjustment of the mAs and/or kVp according to patient size and/or exam, and an iterative reconstruction algorithm. FINDINGS: There is a subacute to chronic RIGHT basal ganglia infarct. The ventricles and sulci are otherwise within normal size limits. There are no abnormal intra or extra-axial fluid collections. There is mild irregular decreased attenuation frontal white matter. The calvaria and the bones of the base of the skull are intact. The paranasal sinuses are clear. This examination was performed within 24 hours of presentation to the hospital. IMPRESSION: Evolving RIGHT basal ganglia infarct. Interpreted By: Venu Gipson MD Preliminary Report By: Venu Gipson MD Electronically Signed By: Venu Gipson MD Dictated Date: 11/04/2018 3:22:54 PM Prelim Date: 11/04/2018 3:22:54 PM Sign Date: 11/04/2018 3:24:32 PM Normal [facility] ([place]) TROPon 11-04-2018 Troponin I.cardiac [Mass/Vol] ng/mL Normal 0.000-0.04 0 [facility] ([place]) Comment on above: Result Comment: Trop onin I reference range: 0.00-0.040 ng/mL Negative and non-diagnostic. >0.040 ng/mL Consistent with cardiac damage, increased clinical risk and possibility of myocardial infarction. Serial measurements, a rise & fall in test results, clinical history, appropriate symptoms and/or ECG changes may help assess possibility of WA. *Other non-acute coronary syndrome conditions such as CHF, myocarditis, pulmonary emboli, sepsis and cardiac surgery could result in myocardial damage and increased troponin levels. Performed By: #### B MP, TROP, GFR #### [facility] [address] [place] [address] #### CBC, ADIFF, ANEU #### [facility] [address] [place], [place] [address] UAon 11-04-2018 Color (U) Yellow Normal [facility] ([place]) Comment on above: Performed By: #### U A, UAMICAO #### [place] [address] Glucose (U) [Mass/Vol] Negative Normal Negative [facility] ([place]) Comment on above: Performed By: #### U A, UAMICAO #### [place] [address] Ketones Ql (U) Negative Normal Negative [facility] ([place]) Comment on above: Performed By: #### U A, UAMICAO #### [place] [address] UA Appear Clear Normal Clear [facility] ([place]) Comment on above: Performed By: #### U A, UAMICAO #### [place] [address] UA Blood Moderate Negative [facility] ([place]) Comment on above: Performed By: #### U A, UAMICAO #### [place] [address] UA Leuk Est Negative Normal Negative [facility] ([place]) Comment on above: Performed By: #### U A, UAMICAO #### [place] [address] UA Nitrite Negative Normal Negative [facility] ([place]) Comment on above: Performed By: #### U A, UAMICAO #### [place] [address] UA pH 7.0 Normal 5.0 - 8.0 [facility] ([place]) Comment on above: Performed By: #### U A, UAMICAO #### [place] [id number] UA Protein Negative Normal Negative [facility] ([place]) Comment on above: Performed By: #### U A, UAMICAO #### [place] [address] UA Spec Grav 1.015 Normal 1.015-1.02 5 [facility] ([place]) Comment on above: Performed By: #### U A, UAMICAO #### [facility] [address] [place] [address] UA Specimen Type Clean Catch Normal [facility] ([place]) Comment on above: Performed By: #### U A, UAMICAO #### [facility] [address] [place] [address] UA Urobilinogen 1.0 E.U./dL Normal 0.2-1.0 [facility] ([place]) Comment on above: Performed By: #### U A, UAMICAO #### [facility] [address] [place] [address] Urobilinogen Qn (U) Negative Normal Negative [facility] ([place]) Comment on above: Performed By: #### U A, UAMICAO #### [facility] [address] [place] [address] XR CHEST 1 VIEWon 11-04-2018 XR CHEST 1 VIEW ORIGINAL Portable Chest x-ray Clinical Statement: chest pain/SOB Comparison: 10/27/2011 No focal consolidation, congestion, pleural effusion, or pneumothorax is seen. The cardiomediastinal silhouette and hilar contours are unremarkable. IMPRESSION: No acute process. Interpreted By: Iglesia Newsome DO Preliminary Report By: Iglesia Newsome DO Electronically Signed By: Iglesia Newsome DO Dictated Date: 11/04/2018 3:38:00 PM Prelim Date: 11/04/2018 3:38:00 PM Sign Date: 11/04/2018 3:40:20 PM [facility]ly [facility] ([place]) Culture Viruson 10-06-2016 Culture Virus CBNCBNMRN#: [id number] Name: DAMARI SON D.o.b.: 1965 Sex: Arellano# Loc [facility] Site [id number] ERO WD Hand Right 10/06/16NTIBIOTICS AT COL.: See RADHA OchoaECorbinP. [address] [place] [address] -- C O M M E N T S CBNCBNCu lture Virus FINALTESTING CURRENTLY IN PROGRESS.THIS ORDER FINALIZED DUE TO CONVERSION TO [employer] INFORMATION SYSTEM.TEST WILL BE REORDERED AND RESULTED IN [email or web address] INFORMATION SYSTEM.PATIENT WILL NOT INCUR DUPLICATE CHARGING.NGUYEN FOR RESULTS: - NEW RESULTATT.PHYS.: MARLEYSAEED JACKSON LOCATION: ERO--[facility].DATE: 10/06/16 PATIENT : DAMARI SON LMICROBIOLOGYPRINTED: 10/19/16 17:41 REGULAR 3 PAGE: 3 of 2 2 Normal [facility] Comment on above: Performed By: #### C VIR ####[facility], [address] [place] [address] Culture Wound Aerobeon 10-06 Culture Wound Aerobe CBNCBNMRN#: [id number] Name: DAMARI SON Jim : 1965 Sex: Arellano# Loc Src Site [id number] ERO WD Hand Right 10/06/16NTIBIOTICS AT COL.: See SAEED OchoaC.A.E.P. [address] [place] [address] -- Joesph Lee M M E N T S CBNCBNGr am Stain FINALNo organisms seenCulture Wound Aerobe FINALNo Growth at 48 hoursSensitivity Testing: Not IndicatedKEY FOR RESULTS: - NEW RESULTATT.PHYS.: SAEED DOZIER LOCATION: ERO--[facility].DATE: 10/06/16 PATIENT : DAMARI SON LMICROBIOLOGYPRINTED: 10/09/16 07:05 REGULAR 2 PAGE: 2 of 1 1 Normal [facility] Comment on above: Performed By: #### C WD ####[facility], [address] [place] [id number] [place] [address] Emergency Room Note on 10-06-2016 [place] [facility] Note Normal [facility] Patient Summary Documentson 10-06-2016 Patient Summary Documents Normal [facility] Vital Signs Date Time Vital Sign Value Performing Clinician Lucinda banks 10-07-2024 12:58-0400 Body height 162 cm Subha Townsend APRN.CERTIFIED FIRE INVESTIGATOR Work Phone: [facility] 10-07-2024 12:58-0400 Body mass index (BMI) [Ratio] 26.34 kg/m2 Subha Townsend APRN.CERTIFIED FIRE INVESTIGATOR Work Phone: [facility] 10-07-2024 12:58-0400 Body weight 69.13 kg Subha Townsend APRN.CERTIFIED FIRE INVESTIGATOR Work Phone: [facility] 10-07-2024 12:58-0400 Diastolic blood pressure 76 mm[Hg] Subha Townsend APRN.CERTIFIED FIRE INVESTIGATOR Work Phone: [facility] 10-07-2024 12:58-0400 Heart rate 75 /min Subha Townsend APRN.CERTIFIED FIRE INVESTIGATOR Work Phone: [facility] 10-07-2024 12:58-0400 Respiratory rate 12 /min Subha Townsend APRN.CERTIFIED FIRE INVESTIGATOR Work Phone: [facility] 10-07-2024 12:58-0400 SaO2% (BldA) [Mass fraction] 99 % Subha Townsend APRN.CERTIFIED FIRE INVESTIGATOR Work Phone: [facility] 10-07-2024 12:58-0400 Systolic blood pressure 120 mm[Hg] Subhagabrielle Mendezo DATA SOLUTIONS ARCHITECT.CERTIFIED FIRE INVESTIGATOR Work Phone: [facility] 09-17-2024 12:09-0400 Body mass index (BMI) [Ratio] 27.78 kg/m2 Silva Rojas DATA SOLUTIONS ARCHITECT.CERTIFIED FIRE INVESTIGATOR Work Phone: [facility] 09-17-2024 12:09-0400 Body temperature 97.7 [degF] Silva Rojas DATA SOLUTIONS ARCHITECT.CERTIFIED FIRE INVESTIGATOR Work Phone: [facility] 09-17-2024 12:09-0400 Body weight 68.9 kg Silva Rojas DATA SOLUTIONS ARCHITECT.CERTIFIED FIRE INVESTIGATOR Work Phone: [facility] 09-17-2024 12:09-0400 Diastolic blood pressure 89 mm[Hg] Silva Rojas DATA SOLUTIONS ARCHITECT.CERTIFIED FIRE INVESTIGATOR Work Phone: [facility] 09-17-2024 12:09-0400 Heart rate 78 /min Silva Rojas DATA SOLUTIONS ARCHITECT.CERTIFIED FIRE INVESTIGATOR Work Phone: [facility] 09-17-2024 12:09-0400 Respiratory rate 18 /min Silva Rojas DATA SOLUTIONS ARCHITECT.CERTIFIED FIRE INVESTIGATOR Work Phone: [facility] 09-17-2024 12:09-0400 SaO2% (BldA) [Mass fraction] 98 % Silva Rojas DATA SOLUTIONS ARCHITECT.CERTIFIED FIRE INVESTIGATOR Work Phone: [facility] 09-17-2024 12:09-0400 Systolic blood pressure 131 mm[Hg] Silva Rojas DATA SOLUTIONS ARCHITECT.CERTIFIED FIRE INVESTIGATOR Work Phone: [facility] 01-15-2024 09:29-0400 Body mass index (BMI) [Ratio] 28.02 kg/m2 Silva Rojas DATA SOLUTIONS ARCHITECT.CERTIFIED FIRE INVESTIGATOR Work Phone: [facility] 01-15-2024 09:29-0400 Body temperature 97.81 [degF] Silva Rojas DATA SOLUTIONS ARCHITECT.CERTIFIED FIRE INVESTIGATOR Work Phone: [facility] 01-15-2024 09:29-0400 Body weight 69.5 kg Silva Rojas DATA SOLUTIONS ARCHITECT.CERTIFIED FIRE INVESTIGATOR Work Phone: [facility] 01-15-2024 09:29-0400 Diastolic blood pressure 78 mm[Hg] Silva Bob DATA SOLUTIONS ARCHITECT.CERTIFIED FIRE INVESTIGATOR Work Phone: [facility] 01-15-2024 09:29-0400 Heart rate 115 /min Silva Rojas DATA SOLUTIONS ARCHITECT.CERTIFIED FIRE INVESTIGATOR Work Phone: [facility] 01-15-2024 09:29-0400 Respiratory rate 18 /min Silva Rojas DATA SOLUTIONS ARCHITECT.CERTIFIED FIRE INVESTIGATOR Work Phone: [facility] 01-15-2024 09:29-0400 SaO2% (BldA) [Mass fraction] 96 % Silva Rojas DATA SOLUTIONS ARCHITECT.CERTIFIED FIRE INVESTIGATOR Work Phone: [facility] 01-15-2024 09:29-0400 Systolic blood pressure 128 mm[Hg] Silva Bob DATA SOLUTIONS ARCHITECT.CERTIFIED FIRE INVESTIGATOR Work Phone: [facility] 11-26-2023 15:54-0400 Body mass index (BMI) [Ratio] 27.18 kg/m2 Joey Barry DATA SOLUTIONS ARCHITECT.CERTIFIED FIRE INVESTIGATOR Work Phone: [facility] 11-26-2023 15:54-0400 Body temperature 97.2 [degF] Joey Barry DATA SOLUTIONS ARCHITECT.CERTIFIED FIRE INVESTIGATOR Work Phone: [facility] 11-26-2023 15:54-0400 Body weight 67.4 kg Joey Barry DATA SOLUTIONS ARCHITECT.CERTIFIED FIRE INVESTIGATOR Work Phone: [facility] 11-26-2023 15:54-0400 Diastolic blood pressure 83 mm[Hg] Joey Barry DATA SOLUTIONS ARCHITECT.CERTIFIED FIRE INVESTIGATOR Work Phone: [facility] 11-26-2023 15:54-0400 Heart rate 73 /min Joey Barry DATA SOLUTIONS ARCHITECT.CERTIFIED FIRE INVESTIGATOR Work Phone: [facility] 11-26-2023 15:54-0400 Respiratory rate 18 /min Joey Barry DATA SOLUTIONS ARCHITECT.CERTIFIED FIRE INVESTIGATOR Work Phone: [facility] 11-26-2023 15:54-0400 SaO2% (BldA) [Mass fraction] 98 % Joey Barry DATA SOLUTIONS ARCHITECT.CERTIFIED FIRE INVESTIGATOR Work Phone: [facility] 11-26-2023 15:54-0400 Systolic blood pressure 128 mm[Hg] Joey Barry DATA SOLUTIONS ARCHITECT.CERTIFIED FIRE INVESTIGATOR Work Phone: [facility] 11-20-2023 14:19-0400 Body mass index (BMI) [Ratio] 26.89 kg/m2 Avelina Rinconer PA-C Work Phone: [facility] 11-20-2023 14:19-0400 Body weight 66.68 kg Avelina Rinconer PA-C Work Phone: [facility] 11-20-2023 14:19-0400 Diastolic blood pressure 90 mm[Hg] Avelina Rinconer PA-C Work Phone: [facility] 11-20-2023 14:19-0400 Heart rate 98 /min Avelina Rinconer PA-C Work Phone: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 See TE 09/16/23. [facility] [place] Comment on above: [facility] ER f/u 09/15/23, Fell hurt L leg. See TE 09/16/23. Start: 09-05-2023 End: 09-05-2023 Patient encounter procedure 09/05/2023 3:30 PM EDT Office Visit Cardiology [address] [place] [address] Dizziness [R42]; Fatigue, unspecified type [R53.83]; Nonrheumatic mitral valve stenosis [I34.2] Cardiology Comment on above: Dizziness [R42]; Fatigue, unspecified ty pe [R53.83]; Nonrheumatic mitral valve stenosis [I34.2] Start: 09-05-2023 End: 09-05-2023 Patient encounter procedure Radiology Comment on above: Bilateral arm weakness [R29.898]; Arm pa resthesia, left [R20.2]; Arm paresthesia, right [R20.2]; History of stroke with residual effects [I69.30]; Dizziness [R42]; Fatigue, unspecified type [R53.83]; Cerebrovascular accident (CVA) of right basal ganglia (HCC) [I63.81] High serum triiodoth yronine (T3) [R79.89]; Borderline abnormal thyroid function test [R94.6] Start: 09-05-2023 End: 09-05-2023 Patient encounter procedure 09/05/2023 12:30 PM EDT Office Visit Vasculary Surgery [address] [place] [address] History of stroke with residual effects [I69.30]; Dizziness [R42]; Cerebrovascular accident (CVA) of right basal ganglia (HCC) [I63.81] Vasculary Surgery Comment on above: History of stroke with residual effects [I69.30]; Dizziness [R42]; Cerebrovascular accident (CVA) of right basal ganglia (HCC) [I63.81] Start: 08-09-2023 End: 08-09-2023 Patient encounter procedure 08/09/2023 3:00 PM EDT Appointment Radiology [address] [place] [address] XR CERV OTHER 4V AP/LAT/OBL Bilateral arm weakness [R29.898] Radiology Comment on above: XR CERV OTHER 4V AP/LAT/OBL Bilateral ar m weakness [R29.898] Start: 08-06-2023 End: 11-05-2023 TOXICOLOGY SCREEN, ROUTINE URINE TOXICOLOGY SCREEN, ROUTINE URINE Lab Routine Medication monitoring encounter Expected: 08/06/2023, Expires: 11/05/2023 [facility] Comment on above: Expected: 08/06/2023, Expires: 4 Start: 04-08-2023 Behavioral Health Screening Behavioral Health Screening [facility] Start: 04-08-2023 Depression Assessment Depression Assessment [facility] Start: 01-25-2023 End: 04-26-2023 25-hydroxyvitamin D3 [Mass/volume] in Serum or Plasma [facility] Work Phone: Comment on above: Expected: 01/25/2023, Expires: Start: 01-25-2023 End: 04-26-2023 CBC W Auto Differential panel - Blood [facility] Work Phone: Comment on above: Expected: 01/25/2023, Expires: Start: 01-25-2023 End: 04-26-2023 Comprehensive metabolic 2000 panel - Serum or Plasma [facility] Work Phone: Comment on above: Expected: 01/25/2023, Expires: Start: 01-25-2023 End: 04-26-2023 Thyrotropin [Units/volume] in Serum or Plasma [facility] Work Phone: Comment on above: Expected: 01/25/2023, Expires: Start: 01-25-2023 End: 04-26-2023 Thyroxine (T4) free [Mass/volume] in Serum or Plasma [facility] Work Phone: Comment on above: Expected: 01/25/2023, Expires: Start: 01-25-2023 End: 04-26-2023 Triiodothyronine (T3) [Mass/volume] in Serum or Plasma [facility] Work Phone: Comment on above: Expected: 01/25/2023, Expires: 4 Start: 12-07-2022 Covid-19 Vaccine () Covid-19 Vaccine ( season) [facility] Start: 12-07-2022 Influenza vaccination INFLUENZA (#1) [facility] Start: 11-19-2022 End: 01-19-2023 25-hydroxyvitamin D3 [Mass/volume] in Serum or Plasma [facility] Work Phone: Comment on above: Expected: 11/19/2022, Expires: 3 Start: 11-19-2022 End: 01-19-2023 Cobalamin (Vitamin B12) [Mass/volume] in Serum or Plasma [facility] Work Phone: Comment on above: Expected: 11/19/2022, Expires: 3 Start: 11-19-2022 End: 01-19-2023 Comprehensive metabolic 2000 panel - Serum or Plasma [facility] Work Phone: Comment on above: Expected: 11/19/2022, Expires: 3 Start: 11-19-2022 End: 01-19-2023 Lipid 1996 panel - Serum or Plasma [facility] Work Phone: Comment on above: Expected: 11/19/2022, Expires: 3 Start: 11-19-2022 End: 01-19-2023 Thyrotropin [Units/volume] in Serum or Plasma [facility] Work Phone: Comment on above: Expected: 11/19/2022, Expires: 3 Start: 11-06-2022 Adult depression screening assessment DEPRESSION SCREENING [facility] Start: 11-06-2022 ANNUAL PCP TEAM CHRONIC DISEASE VISIT ANNUAL PCP TEAM CHRONIC DISEASE VISIT [facility] Start: 04-08-2022 DEPRESSION ASSESSMENT DEPRESSION ASSESSMENT [facility] Start: 12-07-2021 Influenza vaccination [facility] Start: 11-06-2021 End: 01-06-2022 C reactive protein [Mass/volume] in Serum or Plasma [facility] Work Phone: Comment on above: Expected: 11/06/2021, Expires: 2 Start: 11-06-2021 End: 01-06-2022 CBC panel - Blood by Automated count [facility] Work Phone: Comment on above: Expected: 11/06/2021, Expires: 2 Start: 11-06-2021 End: 01-06-2022 Comprehensive metabolic 2000 panel - Serum or Plasma [facility] Work Phone: Comment on above: Expected: 11/06/2021, Expires: 2 Start: 11-06-2021 End: 01-06-2022 [facility] A, 6 ANTIBODIES [facility] Work Phone: Comment on above: Expected: 11/06/2021, Expires: 2 Start: 11-06-2021 End: 01-06-2022 Erythrocyte sedimentation rate [facility] Work Phone: Comment on above: Expected: 11/06/2021, Expires: 2 Start: 11-06-2021 End: 01-06-2022 Extractable nuclear Ab panel - Serum [facility] Work Phone: Comment on above: Expected: 11/06/2021, Expires: 2 Start: 11-06-2021 End: 01-06-2022 HIV 1+2 Ab [Presence] in Serum or Plasma by Immunoassay [facility] Work Phone: Comment on above: Expected: 11/06/2021, Expires: 2 Start: 11-06-2021 End: 01-06-2022 Nuclear Ab [Presence] in Serum by Immunoassay [facility] Work Phone: Comment on above: Expected: 11/06/2021, Expires: 2 Start: 11-06-2021 End: 01-06-2022 ERICH MT SPOT FEVER [facility] Work Phone: Comment on above: Expected: 11/06/2021, Expires: 2 Start: 11-06-2021 End: 01-06-2022 SYPHILIS TOTAL W/REFLEX [facility] Work Phone: Comment on above: Expected: 11/06/2021, Expires: 2 Start: 11-06-2021 End: 01-06-2022 TYPHUS IGG + IGM AB [facility] Work Phone: Comment on above: Expected: 11/06/2021, Expires: 2 Start: 10-06-2021 ANNUAL PCP TEAM CHRONIC DISEASE VISIT ANNUAL PCP TEAM CHRONIC DISEASE VISIT [facility] Start: 10-06-2021 BP CONTROLLED (<130/80) BP CONTROLLED (<130/80) [facility] Start: 10-06-2021 COVID-19 VACCINE (#1) COVID-19 VACCINE (#1) [facility] Comment on above: Postponed from 10/19/1972 (Declined at t his time) Start: 10-06-2021 SHINGRIX VACCINE (1 of 2) SHINGRIX VACCINE (1 of 2) [facility] Comment on above: Postponed from 10/19/2017 (Declined at t his time) Start: 11-06-2020 HPV TESTING HPV TESTING [facility] Start: 11-06-2020 PAP TESTING PAP TESTING [facility] Start: 11-06-2020 Screening for malignant neoplasm of cervix [facility] Start: 11-08-2019 Adult depression screening assessment DEPRESSION SCREENING [facility] Start: 10-19-2017 SHINGRIX VACCINE (1 of 2) SHINGRIX VACCINE (1 of 2) [facility] Start: 11-06-2016 Mammography [facility] Start: 11-06-2016 Screening for malignant neoplasm of breast Mammogram Screening [facility] Start: 10-19-2012 COLOGUARD (FIT-DNA) COLOGUARD (FIT-DNA) [facility] Start: 10-19-2012 Colonoscopy COLONOSCOPY [facility] Start: 10-19-2012 COLORECTAL CANCER SCREENING COLORECTAL CANCER SCREENING [facility] Start: 10-19-[address] COLONOGRAPHY [facility] Start: 10-19-2012 FECAL OCCULT BLOOD FECAL OCCULT BLOOD [facility] Start: 10-19-2012 Screening for malignant neoplasm of colon [facility] Start: 10-19-2012 SIGMOIDOSCOPY SIGMOIDOSCOPY [facility] Start: 10-19-1986 Pneumococcal Vaccine: 50+ (1 of 2 - PCV) Pneumococcal Vaccine: 50+ (1 of 2 - PCV) [facility] Start: 10-19-1985 Depression Screening Depression Screening [facility] Start: 10-19-1973 Pneumococcal vaccination Pneumococcal Vaccine (1 of 2 - PCV) [facility] Start: 04-21-1968 COVID-19 VACCINE (#1) COVID-19 VACCINE (#1) [facility] Start: 1965 HEPATITIS B (1 of 3 - 3-dose series) HEPATITIS B (1 of 3 - 3-dose series) [facility] COLOGUARD COLOGUARD Lab Ro utine Screening for colon cancer Ordered: 11/19/2022 [facility] Work Phone: Comment on above: Ordered: 11/19/2022 COVID & INFLUENZA A/ B & RSV NAAT, ROUTINE COVID & INFLUENZA A/B & RSV NAAT, ROUTINE Microbiology Routine Fatigue, unspecified type Dizziness Ordered: 01/25/2023 [facility] Work Phone: Comment on above: Ordered: 01/25/2023 End: 08-20-2025 DBT Breast - bilateral screening BENJAMÍN SCREENING W ERICH Radiology Routine Encounter for screening mammogram for breast cancer 1 Occurrences starting 07/21/2024 until 08/20/2025 [facility] Work Phone: Comment on above: 1 Occurrences starting 07/21/2024 until 08/20/2025 ECG COMPLETE ECG COMPLETE ECG Routine Fatigue, unspecified type Dizziness Ordered: 01/25/2023 [facility] Work Phone: Comment on above: Ordered: 01/25/2023 End: 08-05-2024 Echocardiography ECHO Cardiology Routine Dizziness Fatigue, unspecified type Nonrheumatic mitral valve stenosis 1 Occurrences starting 08/06/2023 until 08/05/2024 [facility] Comment on above: 1 Occurrences starting 08/06/2023 until 08/05/2024 End: 08-05-2024 EMG(NEURO/NI) EMG(NEURO/NI) EMG Routine Bilateral arm weakness Arm paresthesia, left Arm paresthesia, right History of stroke with residual effects 1 Occurrences starting 08/06/2023 until 08/05/2024 [facility] Comment on above: 1 Occurrences starting 08/06/2023 until 08/05/2024 End: 11-19-2024 EMG(NEURO/NI) EMG(NEURO/NI) EMG Routine Right hand weakness 1 Occurrences starting 11/20/2023 until 11/19/2024 [facility] Work Phone: Comment on above: 1 Occurrences starting 11/20/2023 until 11/19/2024 End: 09-19-2024 MG Breast Screening BENJAMÍN SCREENING Radiology Routine Encounter for screening mammogram for breast cancer 1 Occurrences starting 08/21/2023 until 09/19/2024 [facility] Work Phone: Comment on above: 1 Occurrences starting 08/21/2023 until 09/19/2024 End: 09-04-2024 MR Brain WO and W contrast IV MRI BRAIN WO/W IVCON Radiology Routine Bilateral arm weakness Arm paresthesia, left Arm paresthesia, right History of stroke with residual effects Dizziness Fatigue, unspecified type Cerebrovascular accident (CVA) of right basal ganglia (HCC) 1 Occurrences starting 08/06/2023 until 09/04/2024 [facility] Comment on above: 1 Occurrences starting 08/06/2023 until 09/04/2024 ROUTINE FLU A/B + RSV ROUTINE FL U A/B + RSV Lab Routine Fatigue, unspecified type Dizziness Ordered: 01/25/2023 [facility] Work Phone: Comment on above: Ordered: 01/25/2023 SARS-CoV-2 (COVID-19 ) RNA [Presence] in Respiratory specimen by CHERISE with probe detection COVID NAAT, UPPER RESPIRATORY, ROUTINE Microbiology Routine Fatigue, unspecified type Dizziness Ordered: 01/25/2023 [facility] Work Phone: Comment on above: Ordered: 01/25/2023 End: 11-03-2022 Screening mammography bi 2-view breast inc cad BENJAMÍN SCREENING Radiology Routine Encounter for screening mammogram for breast cancer 1 Occurrences starting 10/04/2021 until 11/03/2022 [facility] Work Phone: Comment on above: 1 Occurrences starting 10/04/2021 until 11/03/2022 End: 08-05-2024 US Carotid arteries - bilateral US CAROTID ARTERIES [facility] Vascular Lab Routine History of stroke with residual effects Dizziness Cerebrovascular accident (CVA) of right basal ganglia (HCC) 1 Occurrences starting 08/06/2023 until 08/05/2024 [facility] Comment on above: 1 Occurrences starting 08/06/2023 until 08/05/2024 End: 09-04-2024 US Thyroid gland US THYROID/PARATHYROID Radiology Routine High serum triiodothyronine (T3) Borderline abnormal thyroid function test 1 Occurrences starting 08/06/2023 until 09/04/2024 [facility] Comment on above: 1 Occurrences starting 08/06/2023 until 09/04/2024 US Thyroid gland US THYROID/PARA THYROID Radiology Routine High serum triiodothyronine (T3) Borderline abnormal thyroid function test 09/05/2023 3:13 PM EDT [facility] Work Phone: End: 09-04-2024 XR Cervical spine AP and Lateral and oblique XR CERV OTHER 4V AP/LAT/OBL Radiology Routine Bilateral arm weakness Arm paresthesia, left Arm paresthesia, right History of stroke with residual effects Dizziness 1 Occurrences starting 08/06/2023 until 09/04/2024 [facility] Work Phone: Comment on above: 1 Occurrences starting 08/06/2023 until 09/04/2024 [facility] Immunizations Immunization Date Immunization Notes Care Provider Aissatou flores 10-06-2020 tetanus toxoid, redu valencia diphtheria toxoid, and acellular pertussis vaccine, adsorbed Lonnie Brower DO Work Phone: [facility] 01-24-2016 influenza virus vacc ine, unspecified formulation Clare Olvera DATA SOLUTIONS ARCHITECT.CERTIFIED FIRE INVESTIGATOR Work Phone: [facility] Payers Date Payer Category Payer Self-pay 2022 Unknown [id number] 2020 Medicaid [employer] [place] [employer] [id number] 2020-Present [phone] [address] [place] [address] Medicaid [id number] 2018 Medicaid [id number] 2016 Medicaid [id number] Unknown [id number] Unknown [id number] Unknown [id number] Social History Date Type Detail Facility Start: 11-07-2018 End: 11-19-2022 Tobacco smoking status PRIS Ex-smoker [facility] End: 11-04-2018 History of tobacco use Current smoker [facility] End: 11-04-2018 History of tobacco use Cigarette Smoker [facility] Start: 11-07-2018 End: 11-19-2022 Cigarettes smoked current (pack per day) - Reported 0.5 [facility] Start: 11-07-2018 End: 11-26-2023 Tobacco use and exposure Smokeless tobacco non-user [facility] Start: 10-06-2020 End: 10-07-2024 Alcohol intake Current non-drinker of alcohol (finding) [facility] Start: 1965 Sex Assigned At Not on file [facility] Start: 10-27-2021 End: 11-06-2021 Exposure to SARS-CoV-2 (event) Not sure [facility] Start: 11-06-2021 End: 11-19-2022 Tobacco use panel [facility] Adult Depression Screening Assessment 0 [facility] Start: 08-06-2023 End: 11-26-2023 Tobacco smoking status PRIS Occasional tobacco smoker [facility] Has the [employer], [employer], or [employer] threatened to shut off services in your home in past 12Mo No [facility] Do you belong to any clubs or organizations such as restorationist groups, unions, fraternal or athletic groups, or school groups? Yes [facility] Are you now , , , , never or living with a partner? Never [facility] How often to you hav e a drink containing alcohol? Never [facility] How hard is it for y ou to pay for the very basics like food, housing, medical care, and heating Hard [facility] Do you feel stress - tense, restless, nervous, or anxious, or unable to sleep at night because your mind is troubled all the time - these days [OSQ] Very much [facility] (I/We) worried reshma er (my/our) food would run out before (I/we) got money to buy more. Never true [facility] Tobacco smoking status Smokes to bacco daily (finding) [facility] Sexual Orientation [facility] Sex Assigned At Female [facility] Start: 03-02-2019 Sex Female (finding) [facility] Functional Status Date Assessment Result Facility 10-07-2024 Total score [AUDIT-C] 0 10/08/19 1:32 PM Subha Bernard APRN.[facility] 08-09-2014 Are you deaf, or do you have serious difficulty hearing No 08/09/2014 3:08 PM Mary Martínez Cma No [facility] 08-09-2014 Are you blind, or do you have serious difficulty seeing, even when wearing glasses No 08/09/2014 3:08 PM Mary Martínez Cma No [facility] 08-09-2014 Do you have serious difficulty walking or climbing stairs No 08/09/2014 3:08 PM Mary Martínez Cma No [facility] 08-09-2014 Do you have difficul ty dressing or bathing No 08/09/2014 3:08 PM Mary Martínez Cma No [facility] 08-09-2014 Because of a physica l, mental, or emotional condition, do you have difficulty doing errands alone such as visiting a physician's office or shopping No 08/09/2014 3:08 PM Mary Martínez Cma No [facility] Mental Status Date Assessment Result Facility 08-09-2014 Because of a physica l, mental, or emotional condition, do you have serious difficulty concentrating, remembering, or making decisions No 08/09/2014 3:08 PM Mary Martínez Cma L Tala [facility] Clinical Notes 09-28-2021 to 11-13-2024 Telephone Encounter - Claire Sotelo RN - 11/13/2024 7:44 PM EDTTelephone Encounter - Claire Sotelo RN - 11/13/2024 7:44 PM EDTTelephone Encounter - Britney Mujica RN - 10/23/2024 8:51 AM EDT Note Date & Type Note Facility 11-13-2024 Telephone encounter Note Patient calling with information on obtaining new physician. Patient states she is unhappy with the care she is receiving at the [facility]. Patient with multiple complaints. Ombudsmen information given to patient. Patient denies any new or worsening symptoms of which a provider is not aware:Yes . [facility] 11-13-2024 Miscellaneous Notes Patient calling with information on obtaining new physician. Patient states she is unhappy with the care she is receiving at the [facility]. Patient with multiple complaints. Ombudsmen information given to patient. Patient denies any new or worsening symptoms of which a provider is not aware:Yes . documented in this encounter [facility] 10-23-2024 Telephone encounter Note The patient has been identified by name and date of : Yes Caregiver verified no other encounters exist for this prescription request: Yes Caregiver confirmed with patient/requestor that no other refills are due, in the near future, with this provider at this time: Yes The last office visit in the department: 10/07/2024 Does the patient have a future office visit with this provider/department: Yes 10/13/2025 Requested Prescriptions Pending Prescriptions Disp Refills aspirin 81 mg chewable tablet 90 tablet 0 Sig: Take 1 tablet by mouth once daily. Cholecalciferol, Vitamin D3, 125 mcg (5,000 unit) cap 90 capsule 3 Sig: Take 1 capsule by mouth once daily. Britney Mujica RN October 23, 2024 8:51 AM [facility] 10-23-2024 Miscellaneous Notes The patient has been identified by name and date of : Yes Caregiver verified no other encounters exist for this prescription request: Yes Caregiver confirmed with patient/requestor that no other refills are due, in the near future, with this provider at this time: Yes The last office visit in the department: 10/07/2024 Does the patient have a future office visit with this provider/department: Yes 10/13/2025 Requested Prescriptions Pending Prescriptions Disp Refills aspirin 81 mg chewable tablet 90 tablet 0 Sig: Take 1 tablet by mouth once daily. Cholecalciferol, Vitamin D3, 125 mcg (5,000 unit) cap 90 capsule 3 Sig: Take 1 capsule by mouth once daily. Britney Mujica RN October 23, 2024 8:51 AM documented in this encounter [facility] 10-16-2024 Telephone encounter Note Patient calls and notified of below. Patient voices understanding. Patient states that she is currently on vacation until 11/08/2024. Patient reports that when she gets back she will come into office 11/09/2024 and have labs/tox screen done as well as sign paperwork upstairs. Patient will schedule 6 month follow up then as well. Patient fully aware no medications will be prescribed before all that is done. Britney Mujica RN [facility] 10-16-2024 Miscellaneous Notes Patient calls and notified of below. Patient voices understanding. Patient states that she is currently on vacation until 11/08/2024. Patient reports that when she gets back she will come into office 11/09/2024 and have labs/tox screen done as well as sign paperwork upstairs. Patient will schedule 6 month follow up then as well. Patient fully aware no medications will be prescribed before all that is done. Britney Mujica, RN Mailbox is full cannot except any messages at this time. Will need to try back. Please call Damari, I verified with [facility] that she did talk to them about having primary care manage xanax to save her copays and driving to [place]. We will manage this but before we do so, she needs to come to lab and do the urine tox screens ordered and when she is here she will need to come upstairs and sign the controlled substance agreement, I will leave it at the front counter clerk. Once these are in place we can take over ordering xanax for her. She has to be seen at the least every 6 months for med management so please schedule her a visit for that as well Thank you Elma with [facility] in [place] called in asking about Xanax that Subha Townsend RELATIONSHIP ASSOCIATE called them about. She states the Xanax is the only thing they manage for the Pt, and they require monthly visits so it could get expensive with co-pays. She said it is ok for PCPs office to take over medication management, but she has to pick one place, because she said she just called them to fill the medication too. She said it isn't due to be filled until the or 7th. She said she doesn't want to think she is trying to double dip. Safia Shah, RN documented in this encounter [facility] 10-16-2024 Telephone encounter Note Mailbox is full cannot except any messages at this time. Will need to try back. [facility] 10-16-2024 Telephone encounter Note Please call Damari, I verified with [facility] that she did talk to them about having primary care manage xanax to save her copays and driving to [place]. We will manage this but before we do so, she needs to come to lab and do the urine tox screens ordered and when she is here she will need to come upstairs and sign the controlled substance agreement, I will leave it at the front counter clerk. Once these are in place we can take over ordering xanax for her. She has to be seen at the least every 6 months for med management so please schedule her a visit for that as well Thank you [facility] 10-08-2024 Telephone encounter Note Elma with [facility] in [place] called in asking about Xanax that Subha Townsend RELATIONSHIP ASSOCIATE called them about. She states the Xanax is the only thing they manage for the Pt, and they require monthly visits so it could get expensive with co-pays. She said it is ok for PCPs office to take over medication management, but she has to pick one place, because she said she just called them to fill the medication too. She said it isn't due to be filled until the 6th or 7th. She said she doesn't want to think she is trying to double dip. Safia Shah, AUDRA [facility] 10-07-2024 Instructions Subha Townsend APRN.CNP - 10/07/2024 1:24 PM EDT Schedule your mammogram at front counter clerk Get your labs drawn fasting in the morning Schedule your ultrasound of thyroid as well SMOKING CESSATION COUNSELING Smoking cessation methods including Nicotine Replacement Therapies and Behavior Modification were discussed with the patient and assistance offered. The medical conditions adversely affected by cigarette use include:Emphysema. documented in this encounter [facility] 10-07-2024 Note HNO ID: [id number] Author: SUBHA TOWNSEND APRN.CNP Service: ? Author Type: Nurse Practitioner Type: Progress Notes Filed: 10/07/2024 17:27 Note Text: This is a 58 year old female who presents today with: Damari Son is a 58-year-old female with a history of CVA, anxiety, and emphysema, presenting for an annual wellness visit, with additional complaints of bilateral wrist pain. HISTORY OF PRESENT ILLNESS: Annual Wellness Exam: - No major changes in medical history over the past year. - Last mammogram in 2016; acknowledges need for updated screening - History of HPV and abnormal Pap smears; has not had a gynecological exam since 2016 - Engages in some physical activity, including walking and swimming at the [facility]. Goes maybe once per week. Stays very active with her grandkids she has custody of -Down to about 5 cigarettes a day, some days without -Cut down mountain dew and switching to dragonfuit vitamin water Bilateral Wrist Pain - Reports shooting pain from thumb into wrist, primarily in the right hand, but also occasionally in the left hand. - Pain described as deep and shooting, worsens with pressure and certain movements. - Pain interferes with daily activities such as opening jars and carrying objects; right hand gives out. - Pain is worse at night and feels like it involves a tendon. - Family history of carpal tunnel syndrome in sisters, both of whom had surgery. - History of fracture between finger and wrist on the right hand, leading to favoring the left hand which gave her a break in symptoms but now worsening again -had an order previously for a right upper extremity EMG but never completed it CVA: - History of two strokes; first stroke was significant and required hospitalization. - Second stroke was discovered incidentally during a neurology visit; Damari was unaware of its occurrence until shown on a scan. - Vision has worsened after strokes; unable to tolerate bifocals due to dizziness and disorientation. Anxiety: - Developed severe anxiety and panic attacks after first stroke. - Frequent ER visits due to panic attacks, initially thought she was dying. - Tried medical marijuana previously; currently managed with Xanax 1 mg twice daily, prescribed by a physician at [facility] in [place] (Nigel Rodriguez) - Takes one Xanax in the morning with regular medications and another if needed during the day. -states Dr Rodriguez told her she really didn't need to be seen at [facility] and if PCP was willing to manage her xanax that she could save the money going to [place] and another provider - Denies interest in daily medication for anxiety due to concerns about adherence Emphysema: - Experiences dyspnea when exposed to heat; requires central air conditioning. - says she utilizes inhalers, but none noted in past or current med list Overdue NOV 06 2016 Mammogram Screening (Yearly) Last ordered: Jul 21, 2024 NOV 06 2020 Cervical Cancer Screening (Every 5 Years) Last completed: Nov 07, 2015 AUG 05 2024 Annual PCP Team Chronic Disease Visit (Yearly) Last completed: Aug 06, 2023 Never done Depression Screening (Yearly) Never done Pneumococcal Vaccine: 50+ (1 of 2 - PCV) Never done Colorectal Cancer Screening (View topic details) Never done Shingrix Vaccine (1 of 2) Never done Covid-19 Vaccine ( - ) Willing to have pap/hpv done but would prefer Dr Brower or Sangeetha but open to prn physical therapist consult Misc: 09/17/24 express care for rib injury after hitting rock while tubing [place] , left before xrays obtained. No changes 02/2024 CT chest: no nodules; mild cystic emphysematous changes, scattered interstitial fibrosis, and moderate LAD atherosclerotic calcifications EMG was ordered 11/2023 and expires November 2024 (right hand weakness) 08/2023 thyroid ultrasound recommended fine needle aspiration of nodule on right lower lateral and right posterior mid recommended follow up imaging annually for 5 years. No pathology noted from this, patient reports having it done at some point and said she will never have it done again PAST MEDICAL HISTORY: PAST MEDICAL HISTORY Diagnosis Date Anxiety disorder Dyslipidemia 06/02/2019 Hypertension Stroke (HCC) Tobacco abuse PAST SURGICAL HISTORY Procedure Laterality Date TONSILLECTOMY HX TUBAL LIGATION, ALLERGIES Buspar [Buspirone Hcl], Codeine, and Wellbutrin [Bupropion Hcl] MEDICATIONS Current Outpatient Medications Medication Sig cyclobenzaprine (FLEXERIL) 5 mg tablet Take 1 tablet by mouth three times a day as needed. aspirin 81 mg chewable tablet Take 1 tablet by mouth once daily. amLODIPine (NORVASC) 5 mg tablet Take 1 tablet by mouth once daily. atorvastatin (LIPITOR) 20 mg tablet Take 1 tablet by mouth once daily. lisinopril (ZESTRIL) 40 mg tablet Take 1 tablet by mouth once daily. Cholecalciferol, Vitamin D3, 125 mcg (5,000 unit) cap Take 1 c (more content not included)... [facility] 10-07-2024 History of Present illness Narrative Images from the original note were not included. This is a 58 year old female who presents today with: Damarikory Son is a 58-year-old female with a history of CVA, anxiety, and emphysema, presenting for an annual wellness visit, with additional complaints of bilateral wrist pain. HISTORY OF PRESENT ILLNESS: Annual Wellness Exam: - No major changes in medical history over the past year. - Last mammogram in 2016; acknowledges need for updated screening - History of HPV and abnormal Pap smears; has not had a gynecological exam since 2016 - Engages in some physical activity, including walking and swimming at the [facility]. Goes maybe once per week. Stays very active with her grandkids she has custody of -Down to about 5 cigarettes a day, some days without -Cut down mountain dew and switching to dragonfuit vitamin water Bilateral Wrist Pain - Reports shooting pain from thumb into wrist, primarily in the right hand, but also occasionally in the left hand. - Pain described as deep and shooting, worsens with pressure and certain movements. - Pain interferes with daily activities such as opening jars and carrying objects; right hand gives out. - Pain is worse at night and feels like it involves a tendon. - Family history of carpal tunnel syndrome in sisters, both of whom had surgery. - History of fracture between finger and wrist on the right hand, leading to favoring the left hand which gave her a break in symptoms but now worsening again -had an order previously for a right upper extremity EMG but never completed it CVA: - History of two strokes; first stroke was significant and required hospitalization. - Second stroke was discovered incidentally during a neurology visit; Damari was unaware of its occurrence until shown on a scan. - Vision has worsened after strokes; unable to tolerate bifocals due to dizziness and disorientation. Anxiety: - Developed severe anxiety and panic attacks after first stroke. - Frequent ER visits due to panic attacks, initially thought she was dying. - Tried medical marijuana previously; currently managed with Xanax 1 mg twice daily, prescribed by a physician at [facility] in [place] (Nigel Rodriguez) - Takes one Xanax in the morning with regular medications and another if needed during the day. -states Dr Rodriguez told her she really didn't need to be seen at [facility] [place] and if PCP was willing to manage her xanax that she could save the money going to [place] and another provider - Denies interest in daily medication for anxiety due to concerns about adherence Emphysema: - Experiences dyspnea when exposed to heat; requires central air conditioning. - says she utilizes inhalers, but none noted in past or current med list Overdue NOV 06 2016 Mammogram Screening (Yearly) Last ordered: Jul 21, 2024 NOV 06 2020 Cervical Cancer Screening (Every 5 Years) Last completed: Nov 07, 2015 AUG 05 2024 Annual PCP Team Chronic Disease Visit (Yearly) Last completed: Aug 06, 2023 Never done Depression Screening (Yearly) Never done Pneumococcal Vaccine: 50+ (1 of 2 - PCV) Never done Colorectal Cancer Screening (View topic details) Never done Shingrix Vaccine (1 of 2) Never done Covid-19 Vaccine ( - season) Willing to have pap/hpv done but would prefer Dr Brower or Sangeetha but open to prn physical therapist consult Misc: 09/17/24 express care for rib injury after hitting rock while tubing [place] , left before xrays obtained. No changes 02/2024 CT chest: no nodules; mild cystic emphysematous changes, scattered interstitial fibrosis, and moderate LAD atherosclerotic calcifications EMG was ordered 11/2023 and expires November 2024 (right hand weakness) 08/2023 thyroid ultrasound recommended fine needle aspiration of nodule on right lower lateral and right posterior mid recommended follow up imaging annually for 5 years. No pathology noted from this, patient reports having it done at some point and said she will never have it done again PAST MEDICAL HISTORY: PAST MEDICAL HISTORY Diagnosis Date Anxiety disorder Dyslipidemia 06/02/2019 Hypertension Stroke (HCC) Tobacco abuse PAST SURGICAL HISTORY Procedure Laterality Date TONSILLECTOMY HX TUBAL LIGATION, ALLERGIES Buspar [Buspirone Hcl], Codeine, and Wellbutrin [Bupropion Hcl] MEDICATIONS Current Outpatient Medications Medication Sig cyclobenzaprine (FLEXERIL) 5 mg tablet Take 1 tablet by mouth three times a day as needed. aspirin 81 mg chewable tablet Take 1 tablet by mouth once daily. amLODIPine (NORVASC) 5 mg tablet Take 1 tablet by mouth once daily. atorvastatin (LIPITOR) 20 mg tablet Take 1 tablet by mouth once daily. lisinopril (ZESTRIL) 40 mg tablet Take 1 tablet by mouth once daily. Cholecalciferol, Vitamin D3, 125 mcg (5,000 unit) cap Take 1 capsule by mouth once daily. ALPRAZolam (XANAX) 1 mg tablet Take 1 mg by mouth as needed. ondansetron orally disintegrating (ZOFRAN ODT) 4 mg disintegrating tablet Take 1 tablet by mouth every 6 hours as needed for nausea/vomiting. COMPOUNDED PRESCRIPTION Home blood pressure kit/monitor. Dx: essential HTN, and CVA. keTORolac (TORADOL) 10 mg tablet Take 1 tablet by mouth every 6 hours as needed. (Patient not taking: Reported on 10/07/2024) No current facility-administered medications for this visit. FAMILY HISTORY Problem Relation Age of Onset Hypertension Mother Heart Mother Aneurysm Mother Diabetes Father Heart Father Aneurysm Father Heart Maternal Grandmother Heart Sister Stroke Sister None Brother Social History Tobacco Use Smoking status: Some Days Current packs/day: 0.00 Types: Cigarettes Last attempt to quit: 11/04/2018 Years since quittin.9 Smokeless tobacco: Never Substance Use Topics Alcohol use: No Drug use: No REVIEW OF SYSTEMS GENERAL: No weight loss, malaise or fevers/chills HEENT: Negative for frequent or significant headaches, No changes in hearing or vision (vision is poor since stroke, but couldn't wear the bifocals) NECK: Negative for lumps, goiter, pain and significant neck swelling, denies dysphagia RESPIRATORY: Negative for cough, hemoptysis, wheezing, dyspnea or shortness of breath (only with anxiety/panic attacks or with heat) CARDIOVASCULAR: Negative for chest pain, leg swelling, orthopnea, or palpitations GI: No nausea, vomiting, or diarrhea/constipation. No hematochezia/melena. No heartburn or reflux symptoms. : No history of dysuria, frequency or incontinence MUSCULOSKELETAL: Negative for joint pain or swelling (besides the thumb/wrist pain mentioned above) SKIN: Negative for lesions, rash, and itching ENDOCRINE: Negative for cold or heat intolerance, polyuria, polydipsia and goiter NEURO: No history of headaches, syncope, paralysis, seizures or tremors Psych: panic attacks, especially having to go in busy areas EXAM: BP 120/76 (BP Site: Right Arm, BP Position: Sitting, BP Cuff Size: Regular Adult) Pulse 75 Resp 12 Ht 162 cm (5' 3.78) Wt 69.1 kg (152 lb 6.4 oz) LMP 11/03/2015 SpO2 99% BMI 26.34 kg/m PHYSICAL EXAM: General Appearance: Well appearing, alert, in no acute distress, well-hydrated, well nourished.. Skin: Skin color, texture, turgor normal, no suspicious rashes or lesions. Head: Normocephalic, no masses, lesions, tenderness or abnormalities. Eyes: Anicteric sclera. Pupils are equally round and reactive to light. Extraocular movements are intact. . Ears: External ears normal, canals clear. Nose/Sinuses: Nares normal, septum midline, mucosa normal, no drainage or sinus tenderness. Oropharynx: Lips, mucosa, and tongue normal, teeth and gums normal, oropharynx normal . dentures. Neck: Supple, no adenopathy; thyroid possible nodule or megaly on right; no bruits. Lungs: Lungs clear to auscultation. No wheezing, rhonchi, rales.. Heart: RRR without murmur, gallop, or rubs. No ectopy. Abdomen: Normal abdominal exam, Abdomen soft, non-tender. Bowel sounds normal. No masses, organomegaly. Extremities: No deformities, edema, skin discoloration, clubbing or cyanosis. Good capillary refill. . Musculoskeletal: No joint swelling, deformity, or tenderness. Peripheral Pulses: Normal. Neurologic: Gait normal. Reflexes normal and symmetric. Sensation grossly intact.. Psych: loud pressured speech; pleasant, animated ASSESSMENT/PLAN: 1. Well adult exam - ICD9: V70.0, ICD10: Z00.00 (primary diagnosis) - Counseled on healthy diet and regular exercise - counseled on smoking cessation especially with past CVAs, educated on smoking cessation resources 2. Screening for depression - ICD9: V79.0, ICD10: Z13.31 - DEPRESSION SCREENING 3. Essential hypertension - ICD9: 401.9, ICD10: I10 - Controlled - Continue current medications amlodipine and lisinipril - Encouraged sodium restriction, DASH or Mediterranean diet - Recommend regular aerobic exercise - COMPREHENSIVE METABOLIC PANEL - COMPLETE BLOOD COUNT AND DIFFERENTIAL 4. Cerebrovascular accident (CVA) of right basal ganglia (HCC) - ICD9: 434.91, ICD10: I63.81 - COMPREHENSIVE METABOLIC PANEL - COMPLETE BLOOD COUNT AND DIFFERENTIAL 5. Dyslipidemia - ICD9: 272.4, ICD10: E78.5 - Control undetermined, due for labs - Counseled on healthy diet and regular exercise - COMPREHENSIVE METABOLIC PANEL - LIPID PANEL, FASTING 6. Vitamin D deficiency - ICD9: 268.9, ICD10: E55.9 - VITAMIN D 25 HYDROXY - continue vitamin d3 supplement for now 7. High serum triiodothyronine (T3) - ICD9: 790.99, ICD10: R79.89 - THYROID STIMULATING HORMONE - T3, FREE - T4 FREE/FREE THYROXINE 8. Borderline abnormal thyroid function test - ICD9: 794.5, ICD10: R94.6 - THYROID STIMULATING HORMONE - T3, FREE - T4 FREE/FREE THYROXINE - US THYROID/PARATHYROID 9. Screening for diabetes mellitus - ICD9: V77.1, ICD10: Z13.1 - HEMOGLOBIN A1C - COMPREHENSIVE METABOLIC PANEL 10. Right hand weakness - ICD9: 728.87, ICD10: R29.898 - EMG(NEURO/NI) - last year saw neurology and an EMG was ordered but never completed 12. Multiple thyroid nodules - ICD9: 241.1, ICD10: E04.2 - US THYROID/PARATHYROID- needs follow up ultrasound - 2017 a FNA was attempted by Dr Alcala but never completed as patient had a panic attack during procedure and enough tissue must not have been present for testing (this was recommended especially for one of the nodules) Discussed treatment plan and patient voices understanding. Patient's questions answered appropriately. Medications and potential side effects were discussed and patient voices understanding. Return to the office as scheduled or as needed for worsening/no improvement. Subha Townsend APRN.CERTIFIED FIRE INVESTIGATOR Recording using [employer] software for draft documentation of the visit was discussed with the patient/authorized client representative; all questions welcomed and answered. Patient/authorized client representative agreed to proceed documented in this encounter [facility] 09-17-2024 Note HNO ID: [id number] Author: SILVA ROJAS APRN.MORGAN Service: ? Author Type: Nurse Practitioner Type: Progress Notes Filed: 09/17/2024 12:50 Note Text: [facility] Subjective HPI HPI Damari Son is a 58 year old female who presents today for CC of injury [place], hit a tree, rates pain 12/16. Has tried otc medication for relief. Symptoms are worsened by rom, deep breathing. Had garage door hit back today. Denies numbness/tingling. Rates pain as not too bad. Denies any change in void/stooling. Denies numbness/tingling. .Patient presents with: Pain: R rib pain, bilateral petersen pain, low back pain x1 day PAST MEDICAL HISTORY Diagnosis Date Anxiety disorder Dyslipidemia 06/02/2019 Hypertension Stroke (HCC) Tobacco abuse PAST SURGICAL HISTORY Procedure Laterality Date TONSILLECTOMY HX TUBAL LIGATION, ALLERGIES Buspar [Buspirone Hcl], Codeine, and Wellbutrin [Bupropion Hcl] MEDICATIONS cyclobenzaprine (FLEXERIL) 5 mg tablet Take 1 tablet by mouth three times a day as needed. aspirin 81 mg chewable tablet Take 1 tablet by mouth once daily. amLODIPine (NORVASC) 5 mg tablet Take 1 tablet by mouth once daily. atorvastatin (LIPITOR) 20 mg tablet Take 1 tablet by mouth once daily. lisinopril (ZESTRIL) 40 mg tablet Take 1 tablet by mouth once daily. keTORolac (TORADOL) 10 mg tablet Take 1 tablet by mouth every 6 hours as needed. Cholecalciferol, Vitamin D3, 125 mcg (5,000 unit) cap Take 1 capsule by mouth once daily. ALPRAZolam (XANAX) 1 mg tablet Take 1 mg by mouth as needed. ondansetron orally disintegrating (ZOFRAN ODT) 4 mg disintegrating tablet Take 1 tablet by mouth every 6 hours as needed for nausea/vomiting. COMPOUNDED PRESCRIPTION Home blood pressure kit/monitor. Dx: essential HTN, and CVA. FAMILY HISTORY Problem Relation Age of Onset Hypertension Mother Heart Mother Aneurysm Mother Diabetes Father Heart Father Aneurysm Father Heart Maternal Grandmother Heart Sister Stroke Sister None Brother Social History Tobacco Use Smoking status: Some Days Current packs/day: 0.00 Types: Cigarettes Last attempt to quit: 11/04/2018 Years since quittin.8 Smokeless tobacco: Never Substance Use Topics Alcohol use: No Drug use: No Review of Systems Objective BP 131/89 Pulse 78 Temp 36.5 ?C (97.7 ?F) Resp 18 Wt 68.9 kg (151 lb 14.4 oz) LMP 11/03/2015 SpO2 98% BMI 27.78 kg/m? Physical Exam Constitutional: General: She is not in acute distress. Appearance: Normal appearance. She is not toxic-appearing or diaphoretic. HENT: Head: Normocephalic and atraumatic. Cardiovascular: Rate and Rhythm: Normal rate and regular rhythm. Heart sounds: Normal heart sounds, S1 normal and S2 normal. Pulmonary: Effort: Pulmonary effort is normal. Breath sounds: Normal breath sounds. Chest: Abdominal: General: Bowel sounds are normal. Palpations: Abdomen is soft. Tenderness: There is no abdominal tenderness. There is no right CVA tenderness or left CVA tenderness. Musculoskeletal: Legs: Skin: General: Skin is warm and dry. Neurological: Mental Status: She is alert and oriented to person, place, and time. {ASSESSMENT/PLAN: 1. Rib injury - ICD9: 959.11, ICD10: S29.9XXA (primary diagnosis) Left before xray obtained Pain relief discussed Go to ER for severe pain. - XR RIBS/CHEST 3V AP RIB/OBLS/CXR RIGHT 2. Injury of low back, initial encounter - ICD9: 959.19, ICD10: S39.92XA Left before xray Pain relief discussed F/u for continued s/s - XR LUMBAR GENERAL 3V AP/LAT/L5-S1 Silva Rojas APRN.CERTIFIED FIRE INVESTIGATOR History and Record Review External record(s) reviewed: prior outpatient record. Disposition The patient was discharged. Procedures [facility] 09-17-2024 History of Present illness Narrative Images from the original note were not included. [facility] Subjective HPI HPI Damari Son is a 58 year old female who presents today for CC of injury [place], hit a tree, rates pain 9/10. Has tried otc medication for relief. Symptoms are worsened by rom, deep breathing. Had garage door hit back today. Denies numbness/tingling. Rates pain as not too bad. Denies any change in void/stooling. Denies numbness/tingling. .Patient presents with: Pain: R rib pain, bilateral petersen pain, low back pain x1 day PAST MEDICAL HISTORY Diagnosis Date Anxiety disorder Dyslipidemia 06/02/2019 Hypertension Stroke (HCC) Tobacco abuse PAST SURGICAL HISTORY Procedure Laterality Date TONSILLECTOMY HX TUBAL LIGATION, ALLERGIES Buspar [Buspirone Hcl], Codeine, and Wellbutrin [Bupropion Hcl] MEDICATIONS cyclobenzaprine (FLEXERIL) 5 mg tablet Take 1 tablet by mouth three times a day as needed. aspirin 81 mg chewable tablet Take 1 tablet by mouth once daily. amLODIPine (NORVASC) 5 mg tablet Take 1 tablet by mouth once daily. atorvastatin (LIPITOR) 20 mg tablet Take 1 tablet by mouth once daily. lisinopril (ZESTRIL) 40 mg tablet Take 1 tablet by mouth once daily. keTORolac (TORADOL) 10 mg tablet Take 1 tablet by mouth every 6 hours as needed. Cholecalciferol, Vitamin D3, 125 mcg (5,000 unit) cap Take 1 capsule by mouth once daily. ALPRAZolam (XANAX) 1 mg tablet Take 1 mg by mouth as needed. ondansetron orally disintegrating (ZOFRAN ODT) 4 mg disintegrating tablet Take 1 tablet by mouth every 6 hours as needed for nausea/vomiting. COMPOUNDED PRESCRIPTION Home blood pressure kit/monitor. Dx: essential HTN, and CVA. FAMILY HISTORY Problem Relation Age of Onset Hypertension Mother Heart Mother Aneurysm Mother Diabetes Father Heart Father Aneurysm Father Heart Maternal Grandmother Heart Sister Stroke Sister None Brother Social History Tobacco Use Smoking status: Some Days Current packs/day: 0.00 Types: Cigarettes Last attempt to quit: 11/04/2018 Years since quittin.8 Smokeless tobacco: Never Substance Use Topics Alcohol use: No Drug use: No Review of Systems Objective BP 131/89 Pulse 78 Temp 36.5 C (97.7 F) Resp 18 Wt 68.9 kg (151 lb 14.4 oz) LMP 11/03/2015 SpO2 98% BMI 27.78 kg/m Physical Exam Constitutional: General: She is not in acute distress. Appearance: Normal appearance. She is not toxic-appearing or diaphoretic. HENT: Head: Normocephalic and atraumatic. Cardiovascular: Rate and Rhythm: Normal rate and regular rhythm. Heart sounds: Normal heart sounds, S1 normal and S2 normal. Pulmonary: Effort: Pulmonary effort is normal. Breath sounds: Normal breath sounds. Chest: Abdominal: General: Bowel sounds are normal. Palpations: Abdomen is soft. Tenderness: There is no abdominal tenderness. There is no right CVA tenderness or left CVA tenderness. Musculoskeletal: Legs: Skin: General: Skin is warm and dry. Neurological: Mental Status: She is alert and oriented to person, place, and time. {ASSESSMENT/PLAN: 1. Rib injury - ICD9: 959.11, ICD10: S29.9XXA (primary diagnosis) Left before xray obtained Pain relief discussed Go to ER for severe pain. - XR RIBS/CHEST 3V AP RIB/OBLS/CXR RIGHT 2. Injury of low back, initial encounter - ICD9: 959.19, ICD10: S39.92XA Left before xray Pain relief discussed F/u for continued s/s - XR LUMBAR GENERAL 3V AP/LAT/L5-S1 Silva Rojas APRN.MORGAN History and Record Review External record(s) reviewed: prior outpatient record. Disposition The patient was discharged. Procedures documented in this encounter [facility] 08-12-2024 Telephone encounter Note Pt last seen 08/06/23 and had some [facility]TC appts. Called pt and scheduled for yearly physical with Carole on 08/18. The patient has been identified by name and date of : Yes Caregiver verified no other encounters exist for this prescription request: Yes Caregiver confirmed with patient/requestor that no other refills are due, in the near future, with this provider at this time: Yes The last office visit in the department: 08/06/2023 Does the patient have a future office visit with this provider/department: No Called pt and scheduled for yearly physical with Carole on 08/18. Requested Prescriptions Pending Prescriptions Disp Refills cyclobenzaprine (FLEXERIL) 5 mg tablet 90 tablet 1 Sig: Take 1 tablet by mouth three times a day as needed. Aster Vides RN August 12, 2024 8:45 AM [facility] 08-12-2024 Miscellaneous Notes Pt last seen 08/06/23 and had some [facility] appts. Called pt and scheduled for yearly physical with Carole on 08/18. The patient has been identified by name and date of : Yes Caregiver verified no other encounters exist for this prescription request: Yes Caregiver confirmed with patient/requestor that no other refills are due, in the near future, with this provider at this time: Yes The last office visit in the department: 08/06/2023 Does the patient have a future office visit with this provider/department: No Called pt and scheduled for yearly physical with Carole on 08/18. Requested Prescriptions Pending Prescriptions Disp Refills cyclobenzaprine (FLEXERIL) 5 mg tablet 90 tablet 1 Sig: Take 1 tablet by mouth three times a day as needed. Aster Vides RN August 12, 2024 8:45 AM documented in this encounter [facility] 07-21-2024 Note Patient Outreach (FA MPWS) DAMARI SON ([id number]) 1965 F Date Time Provider Department 07/21/24 LONNIE BROWERWS During your visit today, we recorded the following information about you: Allergies As of Date: 07/21/2024 Noted Allergy Reaction BUSPAR (BUSPIRONE HCL) 01/30/2016 11 - Vomiting CODEINE 09/15/2023 9 - Itching WELLBUTRIN (BUPROPION HCL) 05/28/2013 1 - Mental Status Change Date Reviewed: 01/15/2024 Reviewed by: Noa Milian LPN - Fully Assessed Visit Diagnosis:Encounter for screening mammogram for breast cancer [Z12.31] Order(s):BENJAMÍN SCREENING W ERICH [[id number]] Order #: [id number] FUTURE Prescriptions as of 08/21/2024 - cyclobenzaprine (FLEXERIL) 5 mg tablet Take 1 tablet by mouth three times a day as needed. - aspirin 81 mg chewable tablet Take 1 tablet by mouth once daily. - amLODIPine (NORVASC) 5 mg tablet Take 1 tablet by mouth once daily. - atorvastatin (LIPITOR) 20 mg tablet Take 1 tablet by mouth once daily. - lisinopril (ZESTRIL) 40 mg tablet Take 1 tablet by mouth once daily. - keTORolac (TORADOL) 10 mg tablet Take 1 tablet by mouth every 6 hours as needed. - Cholecalciferol, Vitamin D3, 125 mcg (5,000 unit) cap Take 1 capsule by mouth once daily. - ALPRAZolam (XANAX) 1 mg tablet Take 1 mg by mouth as needed. - ondansetron orally disintegrating (ZOFRAN ODT) 4 mg disintegrating tablet Take 1 tablet by mouth every 6 hours as needed for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 Skin: Negative for itching and rash. Neurological: Negative for dizziness and headaches. Objective Physical Exam Constitutional: General: She is not in acute distress. Appearance: She is not toxic-appearing. HENT: Head: Normocephalic. Nose: Nose normal. Eyes: Pupils: Pupils are equal, round, and reactive to light. Cardiovascular: Rate and Rhythm: Normal rate. Pulmonary: Effort: Pulmonary effort is normal. No respiratory distress. Musculoskeletal: Hands: Cervical back: Normal range of motion. Comments: 7 sutures removed. Tolerated well. No drainage. Wound well-approximated. No evidence of infection. Skin: General: Skin is warm and dry. Neurological: General: No focal deficit present. Mental Status: She is alert. ASSESSMENT/PLAN: 1. Visit for suture removal - ICD9: V58.32, ICD10: Z48.02 Sutures removed. No evidence of infection. Wound care discussed. Red flags reevaluation discussed. Patient was educated on supportive therapies. Patient will follow up with primary care provider as needed. Patient was instructed to immediately proceed to emergency room for any new, worsening, or symptoms lasting longer than anticipated. The patient's clinical presentation is otherwise unremarkable at this time. Based on exam and clinical finding, the patient is stable for discharge. Plan of care was discussed with patient. Patient verbalizes understanding and agrees to plan of care. This note was generated using [employer] software. It may contain errors in wording, punctuation, or spelling. Joey Barry APRN.[facility] 11-26-2023 History of Present illness Narrative Images from the original note were not included. Subjective HPI Nontoxic appearing female presents urgent care requesting suture removal. 7 sutures placed here 11 days ago. No pain no drainage. Wound healing well. Overall feels well. Past medical history prescription medications allergies reviewed. .Patient presents with: Suture Removal: L hand 2nd and 3rd fingers PAST MEDICAL HISTORY No date: Anxiety disorder 06/02/2019: Dyslipidemia No date: Hypertension No date: Stroke (HCC) No date: Tobacco abuse PAST SURGICAL HISTORY No date: TONSILLECTOMY HX No date: TUBAL LIGATION, ALLERGIES Buspar [Buspirone Hcl] and Wellbutrin [Bupropion Hcl] MEDICATIONS keTORolac (TORADOL) 10 mg tablet Take 1 tablet by mouth every 6 hours as needed. aspirin 81 mg chewable tablet Take 1 tablet by mouth once daily. Cholecalciferol, Vitamin D3, 125 mcg (5,000 unit) cap Take 1 capsule by mouth once daily. cyclobenzaprine (FLEXERIL) 5 mg tablet Take 1 tablet by mouth three times a day as needed. ALPRAZolam (XANAX) 1 mg tablet Take 1 mg by mouth as needed. amLODIPine (NORVASC) 5 mg tablet Take 1 tablet by mouth once daily. lisinopril (ZESTRIL) 40 mg tablet Take 1 tablet by mouth once daily. atorvastatin (LIPITOR) 20 mg tablet Take 1 tablet by mouth once daily. ondansetron orally disintegrating (ZOFRAN ODT) 4 mg disintegrating tablet Take 1 tablet by mouth every 6 hours as needed for nausea/vomiting. COMPOUNDED PRESCRIPTION Home blood pressure kit/monitor. Dx: essential HTN, and CVA. FAMILY HISTORY Problem Relation Age of Onset Hypertension Mother Heart Mother Aneurysm Mother Diabetes Father Heart Father Aneurysm Father Heart Maternal Grandmother Heart Sister Stroke Sister None Brother Social History Tobacco Use Smoking status: Some Days Current packs/day: 0.00 Types: Cigarettes Last attempt to quit: 11/04/2018 Years since quittin.0 Smokeless tobacco: Never Substance Use Topics Alcohol use: No Drug use: No BP 128/83 Pulse 73 Temp 36.2 C (97.2 F) Resp 18 Wt 67.4 kg (148 lb 9.4 oz) LMP 11/03/2015 SpO2 98% BMI 27.18 kg/m Review of Systems Constitutional: Negative for chills, fever and malaise/fatigue. HENT: Negative for congestion, ear discharge, ear pain, sinus pain and sore throat. Eyes: Negative for blurred vision, pain, discharge and redness. Respiratory: Negative for cough, hemoptysis, sputum production, shortness of breath, wheezing and stridor. Cardiovascular: Negative for chest pain. Gastrointestinal: Negative for abdominal pain, diarrhea, nausea and vomiting. Musculoskeletal: Negative for myalgias. Skin: Negative for itching and rash. Neurological: Negative for dizziness and headaches. Objective Physical Exam Constitutional: General: She is not in acute distress. Appearance: She is not toxic-appearing. HENT: Head: Normocephalic. Nose: Nose normal. Eyes: Pupils: Pupils are equal, round, and reactive to light. Cardiovascular: Rate and Rhythm: Normal rate. Pulmonary: Effort: Pulmonary effort is normal. No respiratory distress. Musculoskeletal: Hands: Cervical back: Normal range of motion. Comments: 7 sutures removed. Tolerated well. No drainage. Wound well-approximated. No evidence of infection. Skin: General: Skin is warm and dry. Neurological: General: No focal deficit present. Mental Status: She is alert. ASSESSMENT/PLAN: 1. Visit for suture removal - ICD9: V58.32, ICD10: Z48.02 Sutures removed. No evidence of infection. Wound care discussed. Red flags reevaluation discussed. Patient was educated on supportive therapies. Patient will follow up with primary care provider as needed. Patient was instructed to immediately proceed to emergency room for any new, worsening, or symptoms lasting longer than anticipated. The patient's clinical presentation is otherwise unremarkable at this time. Based on exam and clinical finding, the patient is stable for discharge. Plan of care was discussed with patient. Patient verbalizes understanding and agrees to plan of care. This note was generated using [employer] software. It may contain errors in wording, punctuation, or spelling. Joey Barry APRN.CERTIFIED FIRE INVESTIGATOR documented in this encounter [facility] 11-20-2023 Instructions Avelina Piedra PA-C - 11/20/2023 2:48 PM EDT Consult to physical and occupational therapy Neuropsychological testing for memory loss See your eye doctor due to visual deficits and no driving until this is completed. EMG of the right upper extremity Follow up with cerebrovascular documented in this encounter [facility] 11-20-2023 Note HNO ID: [id number] Author: AVELINA PIEDRA PA-C Service: ? Author Type: Physician Machinist Helper Marine Type: Progress Notes Filed: 11/20/2023 15:24 Note Text: Neurology Outpatient Clinic Date: November 20, 2023 Patient Name: Damari Son Referring physician: Lonnie Brower [address] [address] Consult requested for paresthesias by Dr. Brower. Recommendations will be communicated via shared medical record or US mail. Primary physician: Lonnie Brower [facility] [phone] Reason for Evaluation: Paresthesias and Weakness Subjective HPI Damari Son is a 58 year old right-handed female with history of CVA, HTN, tobacco use, dyslipidemia, anxiety who presents for evaluation of paresthesias. Dr. Brower is the referring physician and PCP. Chart review: Saw PCP on 08/06/23, She states that she has a lot of intermittent, recurrent feeling of Dizziness, worse with moving around a lot or in a cold temp area she feels that it gets triggered. Feels that she has to sit down when this happens. Then feels symptoms of anxiety ramp up and heart starts racing and breathing heavy and rapid per patient. Feels that her chest muscles get tight and she feels that she could pass out but she hasn't had syncope episodes. Feels that the room is spinning, has to then lay down to improve the symptoms. Has been to the ER for these symptoms but vitals are always usually okay and she has been told it is just dizziness and not to worry. She states that the only thing that takes her symptoms away is Aprazolam or laying down to sleep. 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 Also has had right >left arm weakness and tingling into right arm x months per patient. She feels symptoms are worsening. MRI brain showing old stroke. Patient presents for multiple different neurologic symptoms. Patient notes that since her stroke in 2019 to the right lentiform nucleus, she has had a lot of different symptoms. Notes that she is having a lot of issues with behaviors and emotions. Notes that she swears much more than she ever did, becomes agitated easily, starts crying easily for no reason. Is having debilitating panic attacks for which she sees a psychiatrist as well as Dr. Brower. Takes medications for this but still is unable to work due to the fear of having a panic attack. 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 Also reporting left sided neglect secondary to her stroke. Notes that she is constantly injuring herself on her left side, currently has stitches she had placed 2 days ago after she cut her left hand with hedge tremor. States that she has to consciously make decisions to use her left side to avoid things on her left side while she will run into them. Still reporting some weakness on the left side as well, is unsure if she ever completed occupational or physical therapy after her stroke. Feels as if she does not have a left side. Unsure of the etiology for her stroke, but is compliant with aspirin, statin medications. Notes that at the time she was being treated for very high blood pressure that was not well-controlled. Patient also with memory loss issues. Notes that she is always had a poor short-term memory but notes her long-term memory has also been decreasing recently. Notes that her family members have dementia, this started in her 60s or 70s. Does not drive more due to left-sided neglect, also reports some left-sided visual changes as well. Is still able to cook and clean for herself, bathe or self. Patient also reporting some pain in the right wrist, this is new. Notes that she is a seismic observer and symptoms when she is holding something her right wrist will go limp. She also reports sharp shooting pains along the wrist and into the forearm, this can happen to the bilateral upper extremities. Labs/Imaging MRI brain 09/05/23 IMPRESSION: No acute brain findings. 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 Small remote left cerebellar infarcts. Both areas appear unchanged. Moderate background chronic microvascular change Based on the axial T2 flow void pattern, proximal intracranial arterial vasculature, major cortical draining veins, and dural venous sinuses are patent. Concordant appearance after gadolinium. Right transverse sinus is dominant. Medications: Current Outpatient Medications Medication Sig Dispense Refill keTORolac (TORADOL) 10 mg tablet Take 1 tablet by mouth every 6 hours as needed. 20 tablet 0 aspirin 81 mg chewable tablet Take 1 tablet by mouth once daily. 90 tablet 0 Cholecalciferol, Vitamin D3, 125 mcg (5,000 unit) cap Take 1 capsule by mouth once daily. 90 capsule 3 cyclobenzaprine (FLEXERIL) 5 mg tablet Take 1 tablet by mouth three times a day as needed. 90 tablet 1 ALPRAZolam (XANAX) 1 mg tablet Take 1 mg by mouth as needed (more content not included)... [facility] 11-20-2023 History of Present illness Narrative Images from the original note were not included. Neurology Outpatient Clinic Date: November 20, 2023 Patient Name: Damari Son Referring physician: Lonnie Brower [address] [address] Consult requested for paresthesias by Dr. Brower. Recommendations will be communicated via shared medical record or US mail. Primary physician: Lonnie Brower [address] [phone] Reason for Evaluation: Paresthesias and Weakness Subjective HPI Damari Son is a 58 year old right-handed female with history of CVA, HTN, tobacco use, dyslipidemia, anxiety who presents for evaluation of paresthesias. Dr. Brower is the referring physician and PCP. Chart review: Saw PCP on 08/06/23, She states that she has a lot of intermittent, recurrent feeling of Dizziness, worse with moving around a lot or in a cold temp area she feels that it gets triggered. Feels that she has to sit down when this happens. Then feels symptoms of anxiety ramp up and heart starts racing and breathing heavy and rapid per patient. Feels that her chest muscles get tight and she feels that she could pass out but she hasn't had syncope episodes. Feels that the room is spinning, has to then lay down to improve the symptoms. Has been to the ER for these symptoms but vitals are always usually okay and she has been told it is just dizziness and not to worry. She states that the only thing that takes her symptoms away is Aprazolam or laying down to sleep. 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 Also has had right >left arm weakness and tingling into right arm x months per patient. She feels symptoms are worsening. MRI brain showing old stroke. Patient presents for multiple different neurologic symptoms. Patient notes that since her stroke in 2019 to the right lentiform nucleus, she has had a lot of different symptoms. Notes that she is having a lot of issues with behaviors and emotions. Notes that she swears much more than she ever did, becomes agitated easily, starts crying easily for no reason. Is having debilitating panic attacks for which she sees a psychiatrist as well as Dr. Brower. Takes medications for this but still is unable to work due to the fear of having a panic attack. 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 Also reporting left sided neglect secondary to her stroke. Notes that she is constantly injuring herself on her left side, currently has stitches she had placed 2 days ago after she cut her left hand with hedge tremor. States that she has to consciously make decisions to use her left side to avoid things on her left side while she will run into them. Still reporting some weakness on the left side as well, is unsure if she ever completed occupational or physical therapy after her stroke. Feels as if she does not have a left side. Unsure of the etiology for her stroke, but is compliant with aspirin, statin medications. Notes that at the time she was being treated for very high blood pressure that was not well-controlled. Patient also with memory loss issues. Notes that she is always had a poor short-term memory but notes her long-term memory has also been decreasing recently. Notes that her family members have dementia, this started in her 60s or 70s. Does not drive more due to left-sided neglect, also reports some left-sided visual changes as well. Is still able to cook and clean for herself, bathe or self. Patient also reporting some pain in the right wrist, this is new. Notes that she is a seismic observer and symptoms when she is holding something her right wrist will go limp. She also reports sharp shooting pains along the wrist and into the forearm, this can happen to the bilateral upper extremities. Labs/Imaging MRI brain 09/05/23 IMPRESSION: No acute brain findings. 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 Small remote left cerebellar infarcts. Both areas appear unchanged. Moderate background chronic microvascular change Based on the axial T2 flow void pattern, proximal intracranial arterial vasculature, major cortical draining veins, and dural venous sinuses are patent. Concordant appearance after gadolinium. Right transverse sinus is dominant. Medications: Current Outpatient Medications Medication Sig Dispense Refill keTORolac (TORADOL) 10 mg tablet Take 1 tablet by mouth every 6 hours as needed. 20 tablet 0 aspirin 81 mg chewable tablet Take 1 tablet by mouth once daily. 90 tablet 0 Cholecalciferol, Vitamin D3, 125 mcg (5,000 unit) cap Take 1 capsule by mouth once daily. 90 capsule 3 cyclobenzaprine (FLEXERIL) 5 mg tablet Take 1 tablet by mouth three times a day as needed. 90 tablet 1 ALPRAZolam (XANAX) 1 mg tablet Take 1 mg by mouth as needed. amLODIPine (NORVASC) 5 mg tablet Take 1 tablet by mouth once daily. 30 tablet 90 lisinopril (ZESTRIL) 40 mg tablet Take 1 tablet by mouth once daily. 30 tablet 90 atorvastatin (LIPITOR) 20 mg tablet Take 1 tablet by mouth once daily. 90 tablet 5 ondansetron orally disintegrating (ZOFRAN ODT) 4 mg disintegrating tablet Take 1 tablet by mouth every 6 hours as needed for nausea/vomiting. 20 tablet 1 COMPOUNDED PRESCRIPTION Home blood pressure kit/monitor. Dx: essential HTN, and CVA. 1 Each 0 No current facility-administered medications for this visit. ROS ROS: Her ROS was positive for that mentioned in the HPI. Otherwise a 10-point ROS was completed and was negative. ALLERGIES Allergen Reactions Buspar [Buspirone H* Vomiting Wellbutrin [Bupropi* Mental Status Change Past Medical History: PAST MEDICAL HISTORY No date: Anxiety disorder 06/02/2019: Dyslipidemia No date: Hypertension No date: Stroke (HCC) No date: Tobacco abuse Family History: FAMILY HISTORY Problem Relation Age of Onset Hypertension Mother Heart Mother Aneurysm Mother Diabetes Father Heart Father Aneurysm Father Heart Maternal Grandmother Heart Sister Stroke Sister None Brother Also includes: . Social History: Social History Tobacco Use Smoking status: Some Days Types: Cigarettes Last attempt to quit: 11/04/2018 Years since quittin.0 Smokeless tobacco: Never Substance Use Topics Alcohol use: No Drug use: No Currently unable to work Objective 11/20/23 1419 BP: 142/90 BP Site: Right Arm BP Position: Sitting Pulse: 98 Resp: 20 SpO2: 97% Weight: 66.7 kg (147 lb) Physical Examination General Appearance: Well appearing, alert, in no acute distress, well-hydrated, well nourished. Head: Normocephalic Pulm: Breathing comfortably Neck: Supple Psych: Cooperative, pressured speech, tearful Neurological Examination: Mental Status: Alert and Oriented to Place, Person, Time and Situation and Patient follows commands.. Language: Is intact to Comprehension, Fluency and Repetition Cranial Nerves: CNII: Visual acuity normal, visual gaviria full to confrontation CNIII, IV, : Pupils equal, round and reactive to light, full extraoccular movements, without nystagmus CN V: Facial sensation intact bilaterally to fine touch CN VII: Left-sided facial weakness CN VIII: Hears finger rub well bilaterally CN IX: Gag Reflex not examined CN X: Palate elevates symmetrically CN XI: Full strength shoulder shrug bilaterally CN XII: Tongue protrusion full and midline Motor Exam: Tone - Normal Tone noted in all extremities Bulk - Normal bulk noted in all muscles tested. Inspection - Normal, no fasciculations or tremors noted. Power: Patient with multiple stitches in her left upper extremity, limiting strength testing in the left hand. 4+/5 throughout left upper extremity. MUSCLES Lower Extremity RIGHT LEFT Hip Flexion 5/5 4+/5 Hip Extension 5/5 5/5 BiFem (Knee Flex) 5/5 5/5 Quads (Knee Ext) 5/5 5/5 Gastroc (Plantflx) 5/5 5/5 TibAnt (Dorsiflx) 5/5 5/5 FlxHLong (Toe Flex) 5/5 5/5 ExtHLong (Toe Ext) 5/5 5/5 Sensory Examination Sensation is intact to light touch. Negative extinction to double simultaneous stimulation Reflexes Right Left Bicep 2/4 2/4 BrRad 2/4 2/4 Knee 2/4 2/4 Ankle 2/4 2/4 [place] Response Negative Negative Coordination: finger-to- nose-finger intact bilaterally and [id number] intact bilaterally. Gait: Patient's gait is normal DATA REVIEWED Actual films/image/tracing reviewed and summarized as follows: MRI brain x 2 Old records reviewed and summarized as follows: Primary care Assessment/Plan Assessment & Plan: Damari Son is a 58 year old right-handed female with a history of CVA, hypertension, dyslipidemia, tobacco use, anxiety. Her examination demonstrates emotional lability, weakness on the left upper and lower extremities noted above. Patient with right sided stroke in 2019, compliant with aspirin and statin medications. Notes that since that time she has been experiencing multiple different neurologic symptoms including severe anxiety, panic disorder and emotional lability. Following with with psychiatry and primary care for this. Also with poor memory and difficulty with concentrating. Is concerned that she has ADHD. Notes this is new since the stroke and notes it is impacting her daily life. Additionally, patient reporting left-sided neglect this has been present since the stroke and feels that maybe it is getting worse. Is unsure if she has ever had physical therapy occupational therapy after her stroke. Unsure the etiology of her stroke, primary care did obtain repeat MRI of the brain which did not show any acute changes. Did discuss neuropsychological testing for the memory loss as well as physical therapy and Occupational Therapy for her weakness and neglect. Patient is amenable to this. In the meantime, discussed not driving she is also reporting some neglect on her left sided vision and has not seen her eye doctor in many years. Encouraged her to see her eye doctor as well. Due to complexity of case, will have her follow-up with cerebrovascular for further stroke management. Additionally, patient reporting some sharp shooting pains in the right wrist, also left. Is a seismic observer and uses her hands often. Notes that occasionally she will be using the hands and will go week and she will drop things. Will obtain EMG of the right upper extremity for further evaluation of possible carpal tunnel syndrome or other nerve entrapment. Patient agreeable to treatment plan of care at this time, questions were answered. Patient to follow-up as needed. Damari was seen today for new patient evaluation. Diagnoses and all orders for this visit: Memory loss - NEUROPSYCHOLOGICAL TESTING CONSULT Cerebrovascular accident (CVA) of right basal ganglia (HCC) - CONSULT TO SUTURE WINDER HAND; Future - CONSULT TO PHYSICAL THERAPY; Future - NEUROPSYCHOLOGICAL TESTING CONSULT - CONSULT TO NEUROLOGY; Future Right hand weakness - EMG(NEURO/NI); Future Left-sided neglect She should return to see me as needed. I spent a total of 55 minutes on the date of the service which included preparing to see the patient, [id number] patient care, completing clinical documentation, obtaining and/or reviewing separately obtained history, performing a medically appropriate examination, counseling and educating the patient/family/caregiver, and ordering medications, tests, or procedures. Avelina Piedra PA-C [facility] Neurology This document has been created with the use of voice recognition technology. It may contain inaccuracies: (e.g. misspellings, inaccurate syntax or word sense) that have escaped review. documented in this encounter [facility] 11-16-2023 Telephone encounter Note Prescription cancelled at [place] [facility]. Christel Boyd APRN.CNP [facility] 11-16-2023 Miscellaneous Notes Prescription cancelled at [facility] and sent to [facility]. Christel Boyd APRN.CNP Patient states she was in yesterday for sutures, toradol was called into [facility] which is closed today, requesting medication be sent to [facility]. Elma Calvert MA documented in this encounter [facility] 11-16-2023 Telephone encounter Note Patient states she was in yesterday for sutures, toradol was called into [facility] which is closed today, requesting medication be sent to [facility]. Elma Calvert MA [facility] 11-15-2023 Instructions Christel Boyd APRN.MORGAN - 11/15/2023 6:22 PM EDT ASSESSMENT/PLAN: 1. Laceration of left index finger without foreign body without damage to nail, initial encounter - ICD9: 883.0, ICD10: S61.211A (primary diagnosis) - ACETAMINOPHEN 500 MG TABLET Wound anesthetized with 1.5 cc's 1 % lidocaine. Wound cleansed with normal saline and povidine and all visible foreign material was removed. Flushed with 50 mL normal saline. Wound edges reapproximated with 2 sutures of 3-0 Prolene. Dry sterile dressing applied. Wound care instructions provided. Return for suture removal in 8-10 days. 2. Laceration of left middle finger without foreign body without damage to nail, initial encounter - ICD9: 883.0, ICD10: S61.213A - ACETAMINOPHEN 500 MG TABLET - Wound anesthetized with 1.5 cc's 1 % lidocaine. Wound cleansed with normal saline and povidine and all visible foreign material was removed. Flushed with 50 mL normal saline. Wound edges reapproximated with 5 sutures of 4-0 prolene. Dry sterile dressing applied. Wound care instructions provided. Return for suture removal in 8-10 days. - Follow-up with your PCP in 3-5 days if symptoms have not improved or sooner if symptoms worsen - Discussed red flags and need for immediate medical evaluation if any occur. - Discussed supportive care treatment with fluids, rest and analgesia. - Discussed expected course of illness Christel Boyd APRN.[facility]GAN SUTURED WOUND CARE: Your cut has been cleaned and closed with stitches. Keep the area around your wound clean and dry. Rest and elevate the injured area until all the pain and swelling are gone. 1. If a dressing has been applied, it should be removed in one days. 2. See your doctor or return here for stitch removal in 8-10 days. 3. Watch for signs of wound infection: Unusual redness or swelling around the wound. Increasing pain and tenderness. Pus drainage, fever. Red streaks going up the arm or leg. See your doctor or return here at once if your wound looks infected. After your cut has begun to heal, you may leave it open to the air. You can clean the stitch line 1-2 times a day with soap and water. However, be careful not to soak the area in water for long periods. Please wear a dressing to protect your injury while you are at work or working at home. documented in this encounter [facility] 11-15-2023 Note HNO ID: [id number] Author: CHRISTEL BOYD APRN.CERTIFIED FIRE INVESTIGATOR Service: ? Author Type: Nurse Practitioner Type: Progress Notes Filed: 11/15/2023 18:34 Note Text: Subjective HPI Damari Son is a 58 year old female who presents with laceration on 2 fingers of her left hand. 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 States it started slipping and she grabbed it with her left hand. She rates her pain 7/10. She went to the ER and waited 2 hours then decided to leave and come here. While she was there they soaked in some type of solution Her last tetanus update was in 2020. Review of Systems Constitutional: Negative for chills and fever. Musculoskeletal: Positive for joint pain. Negative for falls and myalgias. Skin: Negative for itching and rash. Neurological: Negative for tingling, sensory change, focal weakness and weakness. LMP 11/03/2015 PAST MEDICAL HISTORY No date: Anxiety disorder 06/02/2019: Dyslipidemia No date: Hypertension No date: Stroke (HCC) No date: Tobacco abuse PAST SURGICAL HISTORY No date: TONSILLECTOMY HX No date: TUBAL LIGATION, ALLERGIES Buspar [Buspirone Hcl] and Wellbutrin [Bupropion Hcl] MEDICATIONS aspirin 81 mg chewable tablet Take 1 tablet by mouth once daily. Cholecalciferol, Vitamin D3, 125 mcg (5,000 unit) cap Take 1 capsule by mouth once daily. cyclobenzaprine (FLEXERIL) 5 mg tablet Take 1 tablet by mouth three times a day as needed. ALPRAZolam (XANAX) 1 mg tablet Take 1 mg by mouth as needed. amLODIPine (NORVASC) 5 mg tablet Take 1 tablet by mouth once daily. lisinopril (ZESTRIL) 40 mg tablet Take 1 tablet by mouth once daily. atorvastatin (LIPITOR) 20 mg tablet Take 1 tablet by mouth once daily. ondansetron orally disintegrating (ZOFRAN ODT) 4 mg disintegrating tablet Take 1 tablet by mouth every 6 hours as needed for nausea/vomiting. COMPOUNDED PRESCRIPTION Home blood pressure kit/monitor. Dx: essential HTN, and CVA. FAMILY HISTORY Problem Relation Age of Onset Hypertension Mother Heart Mother Aneurysm Mother Diabetes Father Heart Father Aneurysm Father Heart Maternal Grandmother Heart Sister Stroke Sister None Brother Social History Tobacco Use Smoking status: Some Days Types: Cigarettes Last attempt to quit: 11/04/2018 Years since quittin.0 Smokeless tobacco: Never Substance Use Topics Alcohol use: No Drug use: No Objective Physical Exam Vitals and nursing note reviewed. Constitutional: Appearance: Normal appearance. Musculoskeletal: General: Swelling, tenderness and signs of injury present. No deformity. Hands: Comments: Patient has full range of motion and strength is intact to left middle and index finger. Skin: General: Skin is warm and dry. Capillary Refill: Capillary refill takes less than 2 seconds. Findings: No bruising, erythema or rash. Neurological: General: No focal deficit present. Mental Status: She is alert. Motor: No weakness. ASSESSMENT/PLAN: 1. Laceration of left index finger without foreign body without damage to nail, initial encounter - ICD9: 883.0, ICD10: S61.211A (primary diagnosis) - ACETAMINOPHEN 500 MG TABLET Wound anesthetized with 1.5 cc's 1 % lidocaine. Wound cleansed with normal saline and povidine and all visible foreign material was removed. Flushed with 50 mL normal saline. Wound edges reapproximated with 2 sutures of 3-0 Prolene. Dry sterile dressing applied. Wound care instructions provided. Return for suture removal in 8-10 days. 2. Laceration of left middle finger without foreign body without damage to nail, initial encounter - ICD9: 883.0, ICD10: S61.213A - ACETAMINOPHEN 500 MG TABLET - Wound anesthetized with 1.5 cc's 1 % lidocaine. Wound cleansed with normal saline and povidine and all visible foreign material was removed. Flushed with 50 mL normal saline. Wound edges reapproximated with 5 sutures of 4-0 prolene. Dry sterile dressing applied. Wound care instructions provided. Return for suture removal in 8-10 days. - Follow-up with your PCP in 3-5 days if symptoms have not improved or sooner if symptoms worsen - Discussed red flags and need for immediate medical evaluation if any occur. - Discussed supportive care treatment with fluids, rest and analgesia. - Discussed expected course of illness Christel Boyd APRN.[facility] 11-15-2023 History of Present illness Narrative Images from the original note were not included. Subjective HPI Damari Son is a 58 year old female who presents with laceration on 2 fingers of her left hand. 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 States it started slipping and she grabbed it with her left hand. She rates her pain 7/10. She went to the ER and waited 2 hours then decided to leave and come here. While she was there they soaked in some type of solution Her last tetanus update was in 2020. Review of Systems Constitutional: Negative for chills and fever. Musculoskeletal: Positive for joint pain. Negative for falls and myalgias. Skin: Negative for itching and rash. Neurological: Negative for tingling, sensory change, focal weakness and weakness. LMP 11/03/2015 PAST MEDICAL HISTORY No date: Anxiety disorder 06/02/2019: Dyslipidemia No date: Hypertension No date: Stroke (HCC) No date: Tobacco abuse PAST SURGICAL HISTORY No date: TONSILLECTOMY HX No date: TUBAL LIGATION, ALLERGIES Buspar [Buspirone Hcl] and Wellbutrin [Bupropion Hcl] MEDICATIONS aspirin 81 mg chewable tablet Take 1 tablet by mouth once daily. Cholecalciferol, Vitamin D3, 125 mcg (5,000 unit) cap Take 1 capsule by mouth once daily. cyclobenzaprine (FLEXERIL) 5 mg tablet Take 1 tablet by mouth three times a day as needed. ALPRAZolam (XANAX) 1 mg tablet Take 1 mg by mouth as needed. amLODIPine (NORVASC) 5 mg tablet Take 1 tablet by mouth once daily. lisinopril (ZESTRIL) 40 mg tablet Take 1 tablet by mouth once daily. atorvastatin (LIPITOR) 20 mg tablet Take 1 tablet by mouth once daily. ondansetron orally disintegrating (ZOFRAN ODT) 4 mg disintegrating tablet Take 1 tablet by mouth every 6 hours as needed for nausea/vomiting. COMPOUNDED PRESCRIPTION Home blood pressure kit/monitor. Dx: essential HTN, and CVA. FAMILY HISTORY Problem Relation Age of Onset Hypertension Mother Heart Mother Aneurysm Mother Diabetes Father Heart Father Aneurysm Father Heart Maternal Grandmother Heart Sister Stroke Sister None Brother Social History Tobacco Use Smoking status: Some Days Types: Cigarettes Last attempt to quit: 11/04/2018 Years since quittin.0 Smokeless tobacco: Never Substance Use Topics Alcohol use: No Drug use: No Objective Physical Exam Vitals and nursing note reviewed. Constitutional: Appearance: Normal appearance. Musculoskeletal: General: Swelling, tenderness and signs of injury present. No deformity. Hands: Comments: Patient has full range of motion and strength is intact to left middle and index finger. Skin: General: Skin is warm and dry. Capillary Refill: Capillary refill takes less than 2 seconds. Findings: No bruising, erythema or rash. Neurological: General: No focal deficit present. Mental Status: She is alert. Motor: No weakness. ASSESSMENT/PLAN: 1. Laceration of left index finger without foreign body without damage to nail, initial encounter - ICD9: 883.0, ICD10: S61.211A (primary diagnosis) - ACETAMINOPHEN 500 MG TABLET Wound anesthetized with 1.5 cc's 1 % lidocaine. Wound cleansed with normal saline and povidine and all visible foreign material was removed. Flushed with 50 mL normal saline. Wound edges reapproximated with 2 sutures of 3-0 Prolene. Dry sterile dressing applied. Wound care instructions provided. Return for suture removal in 8-10 days. 2. Laceration of left middle finger without foreign body without damage to nail, initial encounter - ICD9: 883.0, ICD10: S61.213A - ACETAMINOPHEN 500 MG TABLET - Wound anesthetized with 1.5 cc's 1 % lidocaine. Wound cleansed with normal saline and povidine and all visible foreign material was removed. Flushed with 50 mL normal saline. Wound edges reapproximated with 5 sutures of 4-0 prolene. Dry sterile dressing applied. Wound care instructions provided. Return for suture removal in 8-10 days. - Follow-up with your PCP in 3-5 days if symptoms have not improved or sooner if symptoms worsen - Discussed red flags and need for immediate medical evaluation if any occur. - Discussed supportive care treatment with fluids, rest and analgesia. - Discussed expected course of illness Christel Boyd APRN.[employer] documented in this encounter [facility] 11-08-2023 Telephone encounter Note The patient has been identified by name and date of : Yes Caregiver verified no other encounters exist for this prescription request: Yes Caregiver confirmed with patient/requestor that no other refills are due, in the near future, with this provider at this time: Yes The last office visit in the department: 08/06/2023 Does the patient have a future office visit with this provider/department: None No show 09/2023 Requested Prescriptions Pending Prescriptions Disp Refills aspirin 81 mg chewable tablet 90 tablet 0 Sig: Take 1 tablet by mouth once daily. Cholecalciferol, Vitamin D3, 125 mcg (5,000 unit) cap 90 capsule 3 Sig: Take 1 capsule by mouth once daily. cyclobenzaprine (FLEXERIL) 5 mg tablet 90 tablet 1 Sig: Take 1 tablet by mouth three times a day as needed. Velvet Aranda RN November 08, 2023 10:47 AM [facility] 11-08-2023 Miscellaneous Notes The patient has been identified by name and date of : Yes Caregiver verified no other encounters exist for this prescription request: Yes Caregiver confirmed with patient/requestor that no other refills are due, in the near future, with this provider at this time: Yes The last office visit in the department: 08/06/2023 Does the patient have a future office visit with this provider/department: None No show 09/2023 Requested Prescriptions Pending Prescriptions Disp Refills aspirin 81 mg chewable tablet 90 tablet 0 Sig: Take 1 tablet by mouth once daily. Cholecalciferol, Vitamin D3, 125 mcg (5,000 unit) cap 90 capsule 3 Sig: Take 1 capsule by mouth once daily. cyclobenzaprine (FLEXERIL) 5 mg tablet 90 tablet 1 Sig: Take 1 tablet by mouth three times a day as needed. Velvet Aranda RN November 08, 2023 10:47 AM documented in this encounter [facility] 09-16-2023 Telephone encounter Note Pt called in and reports she was in [facility] ER 09/15/23. She reports she feel and hurt her L leg. They told her she had a deep bruise on her L knee. Pt was scheduled at 1240 09/19/23 with Moon Olvera [employer]ATE for ER f/u. Please pull ER reports from [facility]. [facility] 09-16-2023 Miscellaneous Notes Pt called in and reports she was in [facility] ER 09/15/23. She reports she feel and hurt her L leg. They told her she had a deep bruise on her L knee. Pt was scheduled at 1240 09/19/23 with Moon Olvera [employer]ATIONSH[employer] ASSOCIATE for ER f/u. Please pull ER reports from [facility]. documented in this encounter [facility] 09-12-2023 Telephone encounter Note Pt calling for appt after finding knot on pt's left petersen. Pt states she has filed for partial disability d/t anxiety and ongoing health problems since having a stroke. The patient has been seen by the provider for all current symptoms r/t to the stroke. Patient calling regarding lump on petersen. Nurse triage assessment completed with protocol recommendation for See PCP within 3 days. Patient advised to contact office for any changes in symptoms or seek urgent evaluation in ER if symptoms worsen. Notes sent to PCP for scheduling Reason for Disposition [1] Small swelling or lump AND [2] unexplained AND [3] present > 1 week Answer Assessment - Initial Assessment Questions 1. APPEARANCE of SWELLING: What does it look like? Hard knot, visible through the skin 2. SIZE: How large is the swelling? (e.g., inches, cm; or compare to size of pinhead, tip of pen, eraser, coin, pea, grape, ping pong ball) Size of a dime 3. LOCATION: Where is the swelling located? Left petersen 4. ONSET: When did the swelling start? First noticed a month ago 5. COLOR: What color is it? Is there more than one color? No redness 6. PAIN: Is there any pain? If Yes, ask: How bad is the pain? (e.g., scale 1-10; or mild, moderate, severe) - NONE (0): no pain - MILD (1-3): doesn't interfere with normal activities - MODERATE (4-7): interferes with normal activities or awakens from sleep - SEVERE (8-10): excruciating pain, unable to do any normal activities none 7. ITCH: Does it itch? If Yes, ask: How bad is the itch? none 8. CAUSE: What do you think caused the swelling? unusre 9 OTHER SYMPTOMS: Do you have any other symptoms? (e.g., fever) none Protocols used: Skin Lump or Localized [id number] [facility] 09-12-2023 Miscellaneous Notes Pt calling for appt after finding knot on pt's left petersen. Pt states she has filed for partial disability d/t anxiety and ongoing health problems since having a stroke. The patient has been seen by the provider for all current symptoms r/t to the stroke. Patient calling regarding lump on petersen. Nurse triage assessment completed with protocol recommendation for See PCP within 3 days. Patient advised to contact office for any changes in symptoms or seek urgent evaluation in ER if symptoms worsen. Notes sent to PCP for scheduling Reason for Disposition [1] Small swelling or lump AND [2] unexplained AND [3] present > 1 week Answer Assessment - Initial Assessment Questions 1. APPEARANCE of SWELLING: What does it look like? Hard knot, visible through the skin 2. SIZE: How large is the swelling? (e.g., inches, cm; or compare to size of pinhead, tip of pen, eraser, coin, pea, grape, ping pong ball) Size of a dime 3. LOCATION: Where is the swelling located? Left petersen 4. ONSET: When did the swelling start? First noticed a month ago 5. COLOR: What color is it? Is there more than one color? No redness 6. PAIN: Is there any pain? If Yes, ask: How bad is the pain? (e.g., scale 1-10; or mild, moderate, severe) - NONE (0): no pain - MILD (1-3): doesn't interfere with normal activities - MODERATE (4-7): interferes with normal activities or awakens from sleep - SEVERE (8-10): excruciating pain, unable to do any normal activities none 7. ITCH: Does it itch? If Yes, ask: How bad is the itch? none 8. CAUSE: What do you think caused the swelling? unusre 9 OTHER SYMPTOMS: Do you have any other symptoms? (e.g., fever) none Protocols used: Skin Lump or Localized [id number] documented in this encounter [facility] 09-09-2023 Telephone encounter Note My chart message sent. [facility] 09-09-2023 Miscellaneous Notes My chart message sent. Please inform patient that her thyroid US shows 3 stable thyroid noduules, no changes Also her ECHOCARDIOGRAM is overall normal as below CONCLUSIONS: - Exam indication: Shortness of Breath - The left ventricle is normal in size. Left ventricular systolic function is normal. EF = 65 5% (2D biplane) Grade I left ventricular diastolic dysfunction. - The right ventricle is normal in size. Right ventricular systolic function is normal. Recommend need for good BLOOD PRESSURE control, low salt diet and regular exercise Her MRI brain results show IMPRESSION: No acute brain findings. 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 Small remote left cerebellar infarcts. Both areas appear unchanged. (Previous stroke areas) Moderate background chronic microvascular change (this gives risk of future stroke) She needs to continue good BLOOD PRESSURE control. Low cholesterol and low salt diet and continue her ASA, statin and BLOOD PRESSURE medications Her Carotid US shows stable only mild plaque formation up to 20-39%. Recommend repeat carotid US in 2-3 years Lonnie Brower DO documented in this encounter [facility] 09-09-2023 Telephone encounter Note Please inform patient that her thyroid US shows 3 stable thyroid noduules, no changes Also her ECHOCARDIOGRAM is overall normal as below CONCLUSIONS: - Exam indication: Shortness of Breath - The left ventricle is normal in size. Left ventricular systolic function is normal. EF = 65 5% (2D biplane) Grade I left ventricular diastolic dysfunction. - The right ventricle is normal in size. Right ventricular systolic function is normal. Recommend need for good BLOOD PRESSURE control, low salt diet and regular exercise Her MRI brain results show IMPRESSION: No acute brain findings. 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 Small remote left cerebellar infarcts. Both areas appear unchanged. (Previous stroke areas) Moderate background chronic microvascular change (this gives risk of future stroke) She needs to continue good BLOOD PRESSURE control. Low cholesterol and low salt diet and continue her ASA, statin and BLOOD PRESSURE medications Her Carotid US shows stable only mild plaque formation up to 20-39%. Recommend repeat carotid US in 2-3 years Lonnie Brower DO [facility] 09-05-2023 History of Present illness Narrative Radiology Service Progress Note PATIENT NAME: Damari Son DATE OF SERVICE: September 05, 2023 TIME: 3:12 PM PATIENT IDENTITY VERIFICATION COMPLETED USING TWO (2) IDENTIFIERS: Name and Date of confirmed by patient verbally. FALL SCREENING: Has the patient had 2 falls in the last year or 1 fall with injury or currently using an Ambulatory Assistive Device (Walker, Cane, Wheelchair, Crutches, etc.)? No PATIENT GENDER DATA: Female. status: : No status: NO. PATIENT RELEVANT IMPLANT DATA REVIEWED: Not Applicable PATIENT PRESENTS WITH AN IMPLANTABLE OR ATTACHED MOUNTAIN OR GLACIER GUIDE: No RADIOLOGY DEPARTMENT: Ultrasound PERIPHERAL IV DATA: Not applicable SIGNED BY: Nella Quinonez RDMS September 05, 2023 3:12 PM documented in this encounter [facility] 09-05-2023 History of Present illness Narrative Radiology Service Progress Note DATE OF SERVICE: September 05, 2023 TIME: 1:51 PM PATIENT IDENTITY VERIFICATION COMPLETED USING TWO (2) STANDARD IDENTIFIERS: Name and Date of confirmed by patient verbally. FALL SCREENING: Has the patient had 2 falls in the last year or 1 fall with injury or currently using an Ambulatory Assistive Device (Walker, Cane, Wheelchair, Crutches, etc.)? No PATIENT GENDER DATA: Female. status: : No status: NO. PATIENT RELEVANT IMPLANT DATA REVIEWED: Yes PATIENT PRESENTS WITH AN IMPLANTABLE OR ATTACHED MOUNTAIN OR GLACIER GUIDE: No ALLERGIES: Reviewed and unchanged CONTRAST ALLERGY: NO. EXAM: MRI - CONTRAST TYPE: GROUP II PERIPHERAL IV DATA: Ambulatory: A peripheral IV was started in the Right antecubital site with a Angio cath: 22 gauge. RADIOLOGY DEPARTMENT: MR; Exam(s) Completed: Head: Multiple Sclerosis SIGNATURE: RT Gustavo(Susanna) PATIENT NAME: Damari Son DATE: September 05, 2023 TIME: 1:51 PM documented in this encounter [facility] 08-26-2023 Telephone encounter Note Please assist pt in scheduling with Neurology as ordered. Mary Lou Mota MA [facility] 08-26-2023 Miscellaneous Notes Please assist pt in scheduling with Neurology as ordered. Mary Lou Mota MA Referral placed Lonnie Brower DO Patient called and notified of provider recommendations below. Patient currently does not see a neurologist. Patient asking if provider can place a referral to neurologist. Patient would like to find a neurologist that is closer to home. Please review and advise, Britney Mujica RN Due to her history, she really needs a Neurologist to further evaluate her to determine if she is able to work etc Lonnie Brower DO Pt is asking if pcp thinks pt is able to return to work with her medical issues? Or if pcp feels pt should continue with trying to get disability? 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 Pt feels that she can not return to work at this time but wants pcp's opinion. Pricila Mckeon LPN documented in this encounter [facility] 08-23-2023 Telephone encounter Note Referral placed Lonnie Brower DO [facility] 08-22-2023 Telephone encounter Note Patient called and notified of provider recommendations below. Patient currently does not see a neurologist. Patient asking if provider can place a referral to neurologist. Patient would like to find a neurologist that is closer to home. Please review and advise, Britney Mujica RN [facility] 08-21-2023 Telephone encounter Note Due to her history, she really needs a Neurologist to further evaluate her to determine if she is able to work etc Lonnie Brower DO [facility] 08-16-2023 Telephone encounter Note Pt is asking if pcp thinks pt is able to return to work with her medical issues? Or if pcp feels pt should continue with trying to get disability? 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 Pt feels that she can not return to work at this time but wants pcp's opinion. Pricila Mckeon LPN [facility] 08-08-2023 History of Present illness Narrative CC: Damari Son is a 57 year old female who presents to the office for follow up HPI: Patient complains of multiple symptoms today in the office She states that she has a lot of intermittent, recurrent feeling of Dizziness, worse with moving around a lot or in a cold temp area she feels that it gets triggered. Feels that she has to sit down when this happens. Then feels symptoms of anxiety ramp up and heart starts racing and breathing heavy and rapid per patient. Feels that her chest muscles get tight and she feels that she could pass out but she hasn't had syncope episodes. Feels that the room is spinning, has to then lay down to improve the symptoms. Has been to the ER for these symptoms but vitals are always usually okay and she has been told it is just dizziness and not to worry. She states that the only thing that takes her symptoms away is Aprazolam or laying down to sleep. 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 Also has had right >left arm weakness and tingling into right arm x months per patient. She feels symptoms are worsening. Hasn't had recent testing Anxiety, long standing. States that she has been getting Xanax from Psychiatrist in [place]. She states that she can no longer see that provider though since the provider/physician was recently murdered by her ex-. PAST MEDICAL HISTORY Diagnosis Date Anxiety disorder Dyslipidemia 06/02/2019 Hypertension Stroke (HCC) Tobacco abuse PAST SURGICAL HISTORY Procedure Laterality Date TONSILLECTOMY HX TUBAL LIGATION, Current Outpatient Medications Medication Sig ALPRAZolam (XANAX) 1 mg tablet Take 1 mg by mouth as needed. Cholecalciferol, Vitamin D3, 125 mcg (5,000 unit) cap Take 1 capsule by mouth once daily. amLODIPine (NORVASC) 5 mg tablet Take 1 tablet by mouth once daily. lisinopril (ZESTRIL) 40 mg tablet Take 1 tablet by mouth once daily. atorvastatin (LIPITOR) 20 mg tablet Take 1 tablet by mouth once daily. ondansetron orally disintegrating (ZOFRAN ODT) 4 mg disintegrating tablet Take 1 tablet by mouth every 6 hours as needed for nausea/vomiting. COMPOUNDED PRESCRIPTION Home blood pressure kit/monitor. Dx: essential HTN, and CVA. aspirin 81 mg chewable tablet Take 1 tablet by mouth once daily. cyclobenzaprine (FLEXERIL) 5 mg tablet Take 1 tablet by mouth three times a day as needed. No current facility-administered medications for this visit. ALLERGIES Allergen Reactions Buspar [Buspirone H* Vomiting Wellbutrin [Bupropi* Mental Status Change Social History Tobacco Use Smoking status: Some Days Types: Cigarettes Last attempt to quit: 11/04/2018 Years since quittin.7 Smokeless tobacco: Never Substance Use Topics Alcohol use: No Drug use: No ROS: See HPI PE: BP 126/86 Pulse 78 Ht 5' 2 (1.58m) Wt 147 lb (66.7kg) SpO2 98% LMP 11/03/2015 BMI 26.88 kg/(m^2). Gen: A&OX3, jittery and anxious appearing in the office, appears fatigued HEENT: PERRLA, EOMs intact b/l, nares without drainage, pharynx without erythema, exudate, lesions, or drainage. Uvula midline. Neck: No LAD, no thyromegaly, no meningismus. No obvious carotid bruits CV: RRR, no murmur , normal s1s2 Lungs: CTA b/l, no wheezing Skin: No rashes, lesions, or wounds on exposed skin. Mild resting tremor b/l arms/hands No edema legs, normal pulses Neuro: non focal exam Normal gait, normal strength legs, upper arms with decreased upper arm strength and hand spiral runner b/l ASSESSMENT/PLAN: 1. Bilateral arm weakness - ICD9: 729.89, ICD10: R29.898 (primary diagnosis) Xray as ordered for neck and MRI brain, I am concerned that her symptoms could be neurologic or vascular in nature. Need for additional testing and then follow up with Neurologist. - XR CERV OTHER 4V AP/LAT/OBL - MRI BRAIN WO/W IVCON - IV CONTRAST (RADIOLOGY PROCEDURE) - EMG(NEURO/NI) 2. Arm paresthesia, left - ICD9: 782.0, ICD10: R20.2 Xray as ordered for neck and MRI brain, I am concerned that her symptoms could be neurologic or vascular in nature. Need for additional testing and then follow up with Neurologist. - XR CERV OTHER 4V AP/LAT/OBL - MRI BRAIN WO/W IVCON - IV CONTRAST (RADIOLOGY PROCEDURE) - EMG(NEURO/NI) 3. Arm paresthesia, right - ICD9: 782.0, ICD10: R20.2 Xray as ordered for neck and MRI brain, I am concerned that her symptoms could be neurologic or vascular in nature. Need for additional testing and then follow up with Neurologist. - XR CERV OTHER 4V AP/LAT/OBL - MRI BRAIN WO/W IVCON - IV CONTRAST (RADIOLOGY PROCEDURE) - EMG(NEURO/NI) 4. History of stroke with residual effects - ICD9: 438.9, ICD10: I69.30 Xray as ordered for neck and MRI brain, I am concerned that her symptoms could be neurologic or vascular in nature. Need for additional testing and then follow up with Neurologist. - XR CERV OTHER 4V AP/LAT/OBL - MRI BRAIN WO/W IVCON - IV CONTRAST (RADIOLOGY PROCEDURE) - EMG(NEURO/NI) - US CAROTID ARTERIES [facility] 5. Dizziness - ICD9: 780.4, ICD10: R42 Xray as ordered for neck and MRI brain, I am concerned that her symptoms could be neurologic or vascular in nature. Need for additional testing and then follow up with Neurologist. - XR CERV OTHER 4V AP/LAT/OBL - MRI BRAIN WO/W IVCON - IV CONTRAST (RADIOLOGY PROCEDURE) - US CAROTID ARTERIES [facility]REE [facility] - ECHO - PERFLUTREN LIPID MICROSPHERES 1.1 MG/ML INJECTION IN NS 10 ML - SODIUM CHLORIDE 0.9 % (FLUSH) INJECTION SYRINGE 6. High serum triiodothyronine (T3) - ICD9: 790.99, ICD10: R79.89 Recheck labs and thyroid US - US THYROID/PARATHYROID - THYROID STIMULATING HORMONE - T3, FREE - T4 FREE/FREE THYROXINE 7. Borderline abnormal thyroid function test - ICD9: 794.5, ICD10: R94.6 Recheck labs and thyroid US - US THYROID/PARATHYROID - THYROID STIMULATING HORMONE - T3, FREE - T4 FREE/FREE THYROXINE 8. Fatigue, unspecified type - ICD9: 780.79, ICD10: R53.83 See above - MRI BRAIN WO/W IVCON - IV CONTRAST (RADIOLOGY PROCEDURE) - VITAMIN B12 - COMPLETE BLOOD COUNT AND DIFFERENTIAL - COMPREHENSIVE METABOLIC PANEL - C-REACTIVE PROTEIN - ECHO - PERFLUTREN LIPID MICROSPHERES 1.1 MG/ML INJECTION IN NS 10 ML - SODIUM CHLORIDE 0.9 % (FLUSH) INJECTION SYRINGE 9. Cerebrovascular accident (CVA) of right basal ganglia (HCC) - ICD9: 434.91, ICD10: I63.81 See above - MRI BRAIN WO/W IVCON - IV CONTRAST (RADIOLOGY PROCEDURE) - US CAROTID ARTERIES [facility] 10. Medication monitoring encounter - ICD9: V58.83, ICD10: Z51.81 - TOXICOLOGY SCREEN, ROUTINE URINE 11. Nonrheumatic mitral valve stenosis - ICD9: 424.0, ICD10: I34.2 Need for repeat testing - ECHO - PERFLUTREN LIPID MICROSPHERES 1.1 MG/ML INJECTION IN NS 10 ML - SODIUM CHLORIDE 0.9 % (FLUSH) INJECTION SYRINGE Lonnie Brower DO Return if no improvement. Follow up with Lonnie Brower DO. To ER if develops chest pain, shortness of breath. Discussed risks, benefits, alternatives, and potential side effects of medications. Patient/Guardian expressed understanding and agreed with the plan. See patient instructions. Lonnie Brower DO [address] [place] [address] Note on other area Lonnie Brower DO documented in this encounter [facility] 08-07-2023 Telephone encounter Note Pharmacy phones for refill(s): Requested Prescriptions Pending Prescriptions Disp Refills aspirin 81 mg chewable tablet 90 tablet 0 Sig: Take 1 tablet by mouth once daily. cyclobenzaprine (FLEXERIL) 5 mg tablet 90 tablet 1 Sig: Take 1 tablet by mouth three times a day as needed. Date of last office visit in primary care: 08/06/2023 Date of next office visit in primary care: not scheduled yet. Abigail Rahman RN. [facility] 08-07-2023 Miscellaneous Notes Pharmacy phones for refill(s): Requested Prescriptions Pending Prescriptions Disp Refills aspirin 81 mg chewable tablet 90 tablet 0 Sig: Take 1 tablet by mouth once daily. cyclobenzaprine (FLEXERIL) 5 mg tablet 90 tablet 1 Sig: Take 1 tablet by mouth three times a day as needed. Date of last office visit in primary care: 08/06/2023 Date of next office visit in primary care: not scheduled yet. Abigail Rahman RN. documented in this encounter [facility] 06-18-2023 Miscellaneous Notes Patient has been identified by name and date of : Pharmacy phones for refill(s): Requested Prescriptions Pending Prescriptions Disp Refills cyclobenzaprine (FLEXERIL) 5 mg tablet 90 tablet 1 Sig: Take 1 tablet by mouth three times a day as needed. Date of last office visit in primary care: 01/25/2023 Date of next office visit in primary care: 08/06/2023 Please advise. Thank you. Britney Mujica RN. documented in this encounter [facility] 05-23-2023 Miscellaneous Notes Patient has been identified by name and date of : Yes, Provider Dr Brower Pharmacy phones for refill(s): Requested Prescriptions Pending Prescriptions Disp Refills aspirin 81 mg chewable tablet 90 tablet 0 Sig: Take 1 tablet by mouth once daily. Date of last office visit in primary care: 01/25/2023 Date of next office visit in primary care: 08/06/2023 Please advise. Thank you. Pricila Mckeon LPN. documented in this encounter [facility] 03-05-2023 Miscellaneous Notes Date of last office: 01/25/2023 Date of next office visit: 05/01/2023 Requested Prescriptions Pending Prescriptions Disp Refills cyclobenzaprine (FLEXERIL) 5 mg tablet 90 tablet 1 Sig: Take 1 tablet by mouth three times a day as needed. aspirin 81 mg chewable tablet 90 tablet 0 Sig: Take 1 tablet by mouth once daily. Please advise. Thank you. Britney Mujica RN. documented in this encounter [facility] 01-31-2023 Miscellaneous Notes Pt informed, verbalized understanding. Shaylee Castellanos Patient needs to discuss all these concerns with Neurologist Lonnie Brower DO Pt reschedule appt missed. She is still waiting on response. Pt calls to report since her stroke she has noticed changes that have happened gradually. -Left sided vision (pt reports she has issues with left side of body) getting worse -Panic attacks: pt reports she has been to ER numerous times thinking she was dying or having another stroke. Pt reports any stress seems to make her cry. Pt has custody of grandchildren at this time so is getting harassed by their parents. Cannot watch the news about war in [place]. Pt reports she gets dizzy and a tightness in chest, and cannot speak. Pt reports in the past three weeks she's had seven major panic attacks. Pt reports in her head she tries to tell herself that everything is ok and it is just a panic attack and that she is not dying. Pt reports she is not doing medical marijuana anymore because that seemed to make her feel worse. Pt reports her psychiatrist prescribed Xanax-once daily for her and that seems to help more but not as much as it did. Pt is asking how does she know that these are just life changes and not something that is getting worse in her head and going to cause another stroke. Pt is asking if she should follow up with neurology or just get an MRI to see if there are any changes going on. Please review and advise. Fidelia James LPN documented in this encounter [facility] 01-28-2023 Miscellaneous Notes Pt. informed she is starting to feel better. Please call patient and let her know that lab work looks fantastic! No concerns. COVID swab was negative. It looks like flu and RSV are still in process? --- can we look into this? Otherwise, see how she is feeling since Saturday. Thank you, Clare Olvera APRN.MORGAN documented in this encounter [facility] 01-25-2023 History of Present illness Narrative Chief Complaint Patient presents with: panic attacks: More frequent and last Saturday had something that was not quite lik her usual , got dizzy, then got a weird hearing episode the slept for next 3 days . She is worrying that these may be mini strokes HPI Damari Son is a 57 year old female who presents here today for Above Complaints. Damari is an established patient of Dr. Brower, and myself. Concerns today... 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 Hx of JENNIE and panic attacks frequently. Sees psychiatry bi-weekly. Pt concerned because symptoms seem to be lingering since this episode. Pt reports extreme fatigue, nausea, dizziness, intermittent headache, and generalized brain fog. Feels like she is in a dream state since Saturday evening. Has been in bed all week. Pt denies any syncope or LOC, CP, palpitations, or SOB. Pt denies any cough, congestion, or URI-like symptoms. This is not my heart, this is in my head Pt hx of CVA in 2019 with minimal residual. Concern for mini-stroke Pt denies any vision changes, weakness, numbness/tingling, slurred speech, confusion, or gait instability. Just wants to make sure this is her anxiety and not something more severe since it did present differently than priors. No known exposure to COVID or flu. HTN --- She states compliant with current blood pressure medication(s). She does not check BP at home but she can as she does have a cuff. Last 14 Encounter BP Readings: Date: BP: 01/25/2023 140/100 11/19/2022 110/70 11/06/2021 160/70 10/06/2020 118/76 06/01/2019 130/80 12/01/2018 100/62 11/27/2018 134/81 11/17/2018 122/90 11/07/2018 122/90 12/04/2017 150/94 08/22/2016 124/86 06/15/2016 140/96 01/24/2016 146/100 11/07/2015 140/100 Past medical history, appointments, medications, allergies reviewed. Previous Medical History PAST MEDICAL HISTORY Diagnosis Date Anxiety disorder Dyslipidemia 06/02/2019 Hypertension Stroke (HCC) Tobacco abuse Previous Surgical History PAST SURGICAL HISTORY Procedure Laterality Date TONSILLECTOMY HX TUBAL LIGATION, Family History FAMILY HISTORY Problem Relation Age of Onset Hypertension Mother Heart Mother Aneurysm Mother Diabetes Father Heart Father Aneurysm Father Heart Maternal Grandmother Heart Sister Stroke Sister None Brother Patient Allergies ALLERGIES Allergen Reactions Buspar [Buspirone H* Vomiting Codiene [Other] Vomiting Wellbutrin [Bupropi* Mental Status Change Current Medications Current Outpatient Medications on File Prior to Visit Medication Sig cyclobenzaprine (FLEXERIL) 5 mg tablet Take 1 tablet by mouth three times daily as needed. Cholecalciferol, Vitamin D3, 125 mcg (5,000 unit) cap Take 1 capsule by mouth once daily. amLODIPine (NORVASC) 5 mg tablet Take 1 tablet by mouth once daily. lisinopril (ZESTRIL) 40 mg tablet Take 1 tablet by mouth once daily. atorvastatin (LIPITOR) 20 mg tablet Take 1 tablet by mouth once daily. aspirin 81 mg chewable tablet Take 1 tablet by mouth once daily. ondansetron orally disintegrating (ZOFRAN ODT) 4 mg disintegrating tablet Take 1 tablet by mouth every 6 hours as needed for nausea/vomiting. COMPOUNDED PRESCRIPTION Home blood pressure kit/monitor. Dx: essential HTN, and CVA. No current facility-administered medications on file prior to visit. Social History Social History Tobacco Use Smoking status: Former Packs/day: .5 Types: Cigarettes Quit date: 11/04/2018 Years since quittin.2 Smokeless tobacco: Never Substance Use Topics Alcohol use: No Drug use: No REVIEW OF SYSTEMS: as above Reviewed relevant PMHx, PSHx, Social Hx, current medications and allergies. Review of Symptoms REVIEW OF SYSTEMS: See HPI. EXAM: BP 140/100 (BP Site: Left Arm, BP Position: Sitting, BP Cuff Size: Regular Adult) Pulse 72 Resp 14 Wt 60.7 kg (133 lb 12.8 oz) LMP 11/03/2015 BMI 24.47 kg/m General Appearance: Well appearing, alert, in no acute distress, well-hydrated, well nourished.. Skin: Skin color, texture, turgor normal, no suspicious rashes or lesions. Head: Normocephalic, no masses, lesions, tenderness or abnormalities. Lungs: Lungs clear to auscultation. No wheezing, rhonchi, rales.. Heart: RRR without murmur, gallop, or rubs. No ectopy. Extremities: No deformities, edema, skin discoloration, clubbing or cyanosis. Good capillary refill. . Musculoskeletal: No joint swelling, deformity, or tenderness. Neurologic: Gait normal. Reflexes normal and symmetric. Sensation grossly intact., Negative findings: speech normal, mental status intact, muscle tone normal, muscle strength normal, rapid alternating movements normal, finger to nose normal, sensation to light touch and pinprick normal, vibratory sensation normal, reflexes normal and symmetric. Health Maintenance List Colorectal Cancer Screening Never done Mammogram Screening due on 11/06/2016 Pap Testing due on 11/06/2020 HPV Testing due on 11/06/2020 Influenza Vaccine(1) due on 12/07/2022 Shingrix Vaccine(1 of 2) due on 11/20/2023 Covid-19 Vaccine(1) due on 11/20/2023 Annual PCP Team Chronic Disease Visit due on 11/20/2023 BP Controlled (<130/80) due on 11/20/2023 Diabetes Screening due on 11/19/2025 Lipid Screening due on 11/20/2027 DTaP,Tdap,Td Vaccine(2 - Td or Tdap) due on 10/06/2030 Depression Assessment Completed Hepatitis C Screening Completed HIV Screening Completed Hepatitis B Vaccine Discontinued ASSESSMENT/PLAN: 1. Fatigue, unspecified type - ICD9: 780.79, ICD10: R53.83 (primary diagnosis) Lab work as below. EKG in office -- WNL, NSR rate of 71 COVID/flu/RSV swab. If all above are negative, may consider CT of brain. Hx of moderate anxiety attacks since 2019. - ECG COMPLETE - COVID & INFLUENZA A/B & RSV NAAT, ROUTINE - COMP METABOLIC PANEL - CBC + DIFF - TSH BLD - T3 BLD - T4 FREE/FREE THYROX - COVID NAAT, UPPER RESPIRATORY, ROUTINE - ROUTINE FLU A/B + RSV 2. Dizziness - ICD9: 780.4, ICD10: R42 See above plan. May consider brain imagining, not emergent due to 1 week of symptoms. Likely anxiety driven per history. Rule out acute concerns. - ECG COMPLETE - COVID & INFLUENZA A/B & RSV NAAT, ROUTINE - COMP METABOLIC PANEL - CBC + DIFF - TSH BLD - T3 BLD - T4 FREE/FREE THYROX - COVID NAAT, UPPER RESPIRATORY, ROUTINE - ROUTINE FLU A/B + RSV 3. Brain fog - ICD9: 799.59, ICD10: R41.89 See above. 4. Vitamin D deficiency - ICD9: 268.9, ICD10: E55.9 Recheck levels. - VITAMIN D 25 HYDROXY 5. Essential hypertension - ICD9: 401.9, ICD10: I10 - Worsening control Start taking BP daily at home and report readings to me next week. Borderline elevation in office today. May be contributing to headache. Recheck in office in 1 month. - Continue current medications - Recommend home blood pressure monitoring, to bring results to next visit - Encouraged sodium restriction, DASH or Mediterranean diet - Recommend regular aerobic exercise 6. Cerebrovascular accident (CVA) of right basal ganglia (HCC) - ICD9: 434.91, ICD10: I63.81 History from 2019. Stable symptoms. RTO in 1 months, sooner if needed. Prescription instructions reviewed with patient as applicable. Potential red flag symptoms discussed with the patient. Reviewed appropriate action plan to take if red flag symptoms occur. Patient agreeable to treatment plan. Clare Esteves APRN.CERTIFIED FIRE INVESTIGATOR [address] [place] [address] documented in this encounter [facility] 11-23-2022 Miscellaneous Notes Prescription request to be sent [facility] per patient request. Last OV: 11/19/2022 Next OV: 01/21/2023 Patient reports [facility] should not be on her chart as a pharmacy at all. [facility] is patient's only preferred pharmacy. Fixed per patient request. Velvet Aranda RN documented in this encounter [facility] 11-22-2022 Miscellaneous Notes Pt informed, verbalized understanding Shaylee Castellanos Please let Damari know I received her lab results. Her vitamin D level is too low, I'm sending in a daily supplement for her to begin taking. The rest of her labs look good, no other concerns. Sangeetha Hancock APRN.CNP documented in this encounter [facility] 11-19-2022 Instructions Sangeetha Hancock APRN.CNP - 11/19/2022 1:[address] Brower will do your pelvic/PAP exam at your upcoming appointment on 01/21. Have your labs drawn. documented in this encounter [facility] 11-19-2022 History of Present illness Narrative Chief Complaint Patient presents with: Physical HPI Damari Son is a 57 year old female who presents here today for Above Complaints. Today: Here for her physical. Has had a few panic attacks lately, which are more than usual. Wondering if this may be due to difficulty seeing and interacting with people on her left side because her vision isn't as great on this side. Has been to the hospital 4 times for this. Sometimes can tell it is coming on but can also come out of nowhere. Chest tightens, cannot breathe, everything looks black and spinning, sweating/overheating, cannot talk, hands will be tingly. Does get diarrhea as well-sometimes this may be the first symptom. Then will feel done for the day-feel like she ran a marathon and can't do anything the rest of the day. Episode will last about 20 minutes at a time. Psychiatrist gave her Xanax-despite medical marijuana card-Dr. Brower PCP had stopped prescribing because of the medical marijuana card. Does regularly see her psychiatrist. Past medical history, appointments, medications, allergies reviewed. Previous Medical History PAST MEDICAL HISTORY Diagnosis Date Anxiety disorder Dyslipidemia 06/02/2019 Hypertension Stroke (HCC) Tobacco abuse Previous Surgical History PAST SURGICAL HISTORY Procedure Laterality Date TONSILLECTOMY HX TUBAL LIGATION, Family History FAMILY HISTORY Problem Relation Age of Onset Hypertension Mother Heart Mother Aneurysm Mother Diabetes Father Heart Father Aneurysm Father Heart Maternal Grandmother Heart Sister Stroke Sister None Brother Patient Allergies ALLERGIES Allergen Reactions Buspar [Buspirone H* Vomiting Codiene [Other] Vomiting Wellbutrin [Bupropi* Mental Status Change Current Medications Current Outpatient Medications on File Prior to Visit Medication Sig aspirin 81 mg chewable tablet Take 1 tablet by mouth once daily. amLODIPine (NORVASC) 5 mg tablet Take 1 tablet by mouth once daily. lisinopril (ZESTRIL) 40 mg tablet Take 1 tablet by mouth once daily. atorvastatin (LIPITOR) 20 mg tablet Take 1 tablet by mouth once daily. cyclobenzaprine (FLEXERIL) 5 mg tablet Take 1 tablet by mouth three times daily as needed. COMPOUNDED PRESCRIPTION Home blood pressure kit/monitor. Dx: essential HTN, and CVA. ondansetron orally disintegrating (ZOFRAN ODT) 4 mg disintegrating tablet Take 1 tablet by mouth every 6 hours as needed for Nausea/Vomiting. No current facility-administered medications on file prior to visit. Social History Social History Tobacco Use Smoking status: Former Packs/day: .5 Types: Cigarettes Quit date: 11/04/2018 Years since quittin.0 Smokeless tobacco: Never Substance Use Topics Alcohol use: No Drug use: No Review of Symptoms REVIEW OF SYSTEMS See HPI, otherwise negative EXAM: BP 110/70 (BP Site: Left Arm, BP Position: Sitting, BP Cuff Size: Regular Adult) Pulse 73 Resp 16 Wt 58 kg (127 lb 12.8 oz) LMP 11/03/2015 SpO2 98% BMI 23.37 kg/m General Appearance: Well appearing, alert, in no acute distress, well-hydrated, well nourished.. Skin: Skin color, texture, turgor normal, no suspicious rashes or lesions. Head: Normocephalic, no masses, lesions, tenderness or abnormalities. Eyes: Anicteric sclera. Pupils are equally round and reactive to light. Extraocular movements are intact. . Ears: External ears normal, canals clear. Nose/Sinuses: Nares normal, septum midline, mucosa normal, no drainage or sinus tenderness. Oropharynx: Dentures and Lips, mucosa, and tongue normal, teeth and gums normal, oropharynx normal. Neck: Supple, no adenopathy; thyroid symmetric, normal size, no bruits. Back:no pain to palpation of vertebrae, good flexion and extension, good range of motion, no muscle tenderness, motor and sensory appear to be normal Lungs: Lungs clear to auscultation. No wheezing, rhonchi, rales.. Heart: RRR without murmur, gallop, or rubs. No ectopy. Abdomen: Normal abdominal exam, Abdomen soft, non-tender. Bowel sounds normal. No masses, organomegaly. Extremities: No deformities, edema, skin discoloration, clubbing or cyanosis. Good capillary refill. . Musculoskeletal: No joint swelling, deformity, or tenderness. Peripheral Pulses: Normal. Neurologic: Gait normal. Reflexes normal and symmetric. Sensation grossly intact.. Lymph Nodes: No cervical lymphadenopathy and No supraclavicular lymphadenopathy. Psychiatric: pleasant, cooperative, anxious. Health Maintenance List HEPATITIS B(1 of 3 - 3-dose series) Never done COVID-19 VACCINE(1) Never done COLORECTAL CANCER SCREENING Never done MAMMOGRAM due on 11/06/2016 SHINGRIX VACCINE(1 of 2) Never done PAP TESTING due on 11/06/2020 HPV TESTING due on 11/06/2020 BP CONTROLLED (<130/80) due on 10/06/2021 DEPRESSION ASSESSMENT Never done ANNUAL PCP TEAM CHRONIC DISEASE VISIT due on 11/06/2022 INFLUENZA(1) due on 12/07/2022 DIABETES SCREEN due on 11/06/2024 LIPID SCREEN due on 03/15/2026 DTAP,TDAP,TD(2 - Td or Tdap) due on 10/06/2030 HEPATITIS C SCREENING Completed HIV SCREENING Completed Data reviewed Previous records, office notes ASSESSMENT/PLAN: 1. Well adult exam - ICD9: V70.0, ICD10: Z00.00 (primary diagnosis) - Counseled on healthy diet and regular exercise - Calcium intake with supplements or by diet of 1000 mg/day for under 50, 7780-3027 mg/day for 50+ - CBC - COMP METABOLIC PANEL - HGB A1C - LIPID PANEL BASIC - VITAMIN D 25 HYDROXY - VITAMIN B12 BLOOD - TSH BLD 2. Essential hypertension - ICD9: 401.9, ICD10: I10 - Controlled - Continue current medications - Recommend home blood pressure monitoring, to bring results to next visit - Encouraged sodium restriction, DASH or Mediterranean diet - Recommend regular aerobic exercise - AMLODIPINE 5 MG TABLET - LISINOPRIL 40 MG TABLET 3. Cerebrovascular accident (CVA) of right basal ganglia (HCC) - ICD9: 434.91, ICD10: I63.81 - ATORVASTATIN 20 MG TABLET 4. Nausea - ICD9: 787.02, ICD10: R11.0 - ONDANSETRON 4 MG DISINTEGRATING TABLET 5. Dyslipidemia - ICD9: 272.4, ICD10: E78.5 - ATORVASTATIN 20 MG TABLET - LIPID PANEL BASIC 6. Back muscle spasm - ICD9: 724.8, ICD10: M62.830 - CYCLOBENZAPRINE 5 MG TABLET 7. Screening for diabetes mellitus - ICD9: V77.1, ICD10: Z13.1 - CBC - COMP METABOLIC PANEL - HGB A1C 8. Screening for thyroid disorder - ICD9: V77.0, ICD10: Z13.29 - TSH BLD 9. Encounter for vitamin deficiency screening - ICD9: V77.99, ICD10: Z13.21 - VITAMIN D 25 HYDROXY - VITAMIN B12 BLOOD 10. Screening for colon cancer - ICD9: V76.51, ICD10: Z12.11 - COLOGUARD Sangeetha Hancock APRN.CERTIFIED FIRE INVESTIGATOR documented in this encounter [facility] 11-02-2022 Miscellaneous Notes Medication refill requested by Pharmacy Please review and advise. Requested Prescriptions Pending Prescriptions Disp Refills aspirin 81 mg chewable tablet 90 tablet 0 Sig: Take 1 tablet by mouth once daily. Last encounter with this provider: 11/06/2021 Next appt: 11/19/2022 WBC (k/uL) Date Value 11/06/2021 11.41 (H) Hemoglobin (g/dL) Date Value 11/06/2021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 patient.[facility] HospitalIn the event this information is protected by the Federal Confidentiality of Alcohol and Drug Abuse Patient Records regulations: The Federal rules restrict any use of the information to criminally investigate or prosecute any alcohol or drug abuse patient.[facility] HospitalIn the event this information is protected by the Federal Confidentiality of Alcohol and Drug Abuse Patient Records regulations: The Federal rules restrict any use of the information to criminally investigate or prosecute any alcohol or drug abuse patient.[facility] HospitalIn the event this information is protected by the Federal Confidentiality of Alcohol and Drug Abuse Patient Records regulations: The Federal rules restrict any use of the information to criminally investigate or prosecute any alcohol or drug abuse patient.[facility] HospitalIn the event this information is protected by the Federal Confidentiality of Alcohol and Drug Abuse Patient Records regulations: The Federal rules restrict any use of the information to criminally investigate or prosecute any alcohol or drug abuse patient.[facility] HospitalIn the event this information is protected by the Federal Confidentiality of Alcohol and Drug Abuse Patient Records regulations: The Federal rules restrict any use of the information to criminally investigate or prosecute any alcohol or drug abuse patient.[facility] HospitalIn the event this information is protected by the Federal Confidentiality of Alcohol and Drug Abuse Patient Records regulations: The Federal rules restrict any use of the information to criminally investigate or prosecute any alcohol or drug abuse patient.[facility] HospitalIn the event this information is protected by the Federal Confidentiality of Alcohol and Drug Abuse Patient Records regulations: The Federal rules restrict any use of the information to criminally investigate or prosecute any alcohol or drug abuse patient.[facility] HospitalIn the event this information is protected by the Federal Confidentiality of Alcohol and Drug Abuse Patient Records regulations: The Federal rules restrict any use of the information to criminally investigate or prosecute any alcohol or drug abuse patient.[facility] HospitalIn the event this information is protected by the Federal Confidentiality of Alcohol and Drug Abuse Patient Records regulations: The Federal rules restrict any use of the information to criminally investigate or prosecute any alcohol or drug abuse patient.[facility] HospitalIn the event this information is protected by the Federal Confidentiality of Alcohol and Drug Abuse Patient Records regulations: The Federal rules restrict any use of the information to criminally investigate or prosecute any alcohol or drug abuse patient.[facility] HospitalIn the event this information is protected by the Federal Confidentiality of Alcohol and Drug Abuse Patient Records regulations: The Federal rules restrict any use of the information to criminally investigate or prosecute any alcohol or drug abuse patient.[facility] HospitalIn the event this information is protected by the Federal Confidentiality of Alcohol and Drug Abuse Patient Records regulations: The Federal rules restrict any use of the information to criminally investigate or prosecute any alcohol or drug abuse patient.[facility] HospitalIn the event this information is protected by the Federal Confidentiality of Alcohol and Drug Abuse Patient Records regulations: The Federal rules restrict any use of the information to criminally investigate or prosecute any alcohol or drug abuse patient.[facility] HospitalIn the event this information is protected by the Federal Confidentiality of Alcohol and Drug Abuse Patient Records regulations: The Federal rules restrict any use of the information to criminally investigate or prosecute any alcohol or drug abuse patient.[facility] HospitalIn the event this information is protected by the Federal Confidentiality of Alcohol and Drug Abuse Patient Records regulations: The Federal rules restrict any use of the information to criminally investigate or prosecute any alcohol or drug abuse patient.[facility] HospitalIn the event this information is protected by the Federal Confidentiality of Alcohol and Drug Abuse Patient Records regulations: The Federal rules restrict any use of the information to criminally investigate or prosecute any alcohol or drug abuse patient.[facility] HospitalIn the event this information is protected by the Federal Confidentiality of Alcohol and Drug Abuse Patient Records regulations: The Federal rules restrict any use of the information to criminally investigate or prosecute any alcohol or drug abuse patient.[facility] HospitalIn the event this information is protected by the Federal Confidentiality of Alcohol and Drug Abuse Patient Records regulations: The Federal rules restrict any use of the information to criminally investigate or prosecute any alcohol or drug abuse patient.[facility] HospitalIn the event this information is protected by the Federal Confidentiality of Alcohol and Drug Abuse Patient Records regulations: The Federal rules restrict any use of the information to criminally investigate or prosecute any alcohol or drug abuse patient.[facility] HospitalIn the event this information is protected by the Federal Confidentiality of Alcohol and Drug Abuse Patient Records regulations: The Federal rules restrict any use of the information to criminally investigate or prosecute any alcohol or drug abuse patient.[facility] HospitalIn the event this information is protected by the Federal Confidentiality of Alcohol and Drug Abuse Patient Records regulations: The Federal rules restrict any use of the information to criminally investigate or prosecute any alcohol or drug abuse patient.[facility] HospitalIn the event this information is protected by the Federal Confidentiality of Alcohol and Drug Abuse Patient Records regulations: The Federal rules restrict any use of the information to criminally investigate or prosecute any alcohol or drug abuse patient.[facility] HospitalIn the event this information is protected by the Federal Confidentiality of Alcohol and Drug Abuse Patient Records regulations: The Federal rules restrict any use of the information to criminally investigate or prosecute any alcohol or drug abuse patient.[facility] HospitalIn the event this information is protected by the Federal Confidentiality of Alcohol and Drug Abuse Patient Records regulations: The Federal rules restrict any use of the information to criminally investigate or prosecute any alcohol or drug abuse patient.[facility] HospitalIn the event this information is protected by the Federal Confidentiality of Alcohol and Drug Abuse Patient Records regulations: The Federal rules restrict any use of the information to criminally investigate or prosecute any alcohol or drug abuse patient.[facility] HospitalIn the event this information is protected by the Federal Confidentiality of Alcohol and Drug Abuse Patient Records regulations: The Federal rules restrict any use of the information to criminally investigate or prosecute any alcohol or drug abuse patient.[facility] HospitalIn the event this information is protected by the Federal Confidentiality of Alcohol and Drug Abuse Patient Records regulations: The Federal rules restrict any use of the information to criminally investigate or prosecute any alcohol or drug abuse patient.[facility] HospitalIn the event this information is protected by the Federal Confidentiality of Alcohol and Drug Abuse Patient Records regulations: The Federal rules restrict any use of the information to criminally investigate or prosecute any alcohol or drug abuse patient.[facility] HospitalIn the event this information is protected by the Federal Confidentiality of Alcohol and Drug Abuse Patient Records regulations: The Federal rules restrict any use of the information to criminally investigate or prosecute any alcohol or drug abuse patient.[facility] HospitalIn the event this information is protected by the Federal Confidentiality of Alcohol and Drug Abuse Patient Records regulations: The Federal rules restrict any use of the information to criminally investigate or prosecute any alcohol or drug abuse patient.[facility] HospitalIn the event this information is protected by the Federal Confidentiality of Alcohol and Drug Abuse Patient Records regulations: The Federal rules restrict any use of the information to criminally investigate or prosecute any alcohol or drug abuse patient.[facility] HospitalIn the event this information is protected by the Federal Confidentiality of Alcohol and Drug Abuse Patient Records regulations: The Federal rules restrict any use of the information to criminally investigate or prosecute any alcohol or drug abuse patient.[facility] HospitalIn the event this information is protected by the Federal Confidentiality of Alcohol and Drug Abuse Patient Records regulations: The Federal rules restrict any use of the information to criminally investigate or prosecute any alcohol or drug abuse patient.[facility] HospitalIn the event this information is protected by the Federal Confidentiality of Alcohol and Drug Abuse Patient Records regulations: The Federal rules restrict any use of the information to criminally investigate or prosecute any alcohol or drug abuse patient.[facility] HospitalIn the event this information is protected by the Federal Confidentiality of Alcohol and Drug Abuse Patient Records regulations: The Federal rules restrict any use of the information to criminally investigate or prosecute any alcohol or drug abuse patient.[facility] HospitalIn the event this information is protected by the Federal Confidentiality of Alcohol and Drug Abuse Patient Records regulations: The Federal rules restrict any use of the information to criminally investigate or prosecute any alcohol or drug abuse patient.[facility] HospitalIn the event this information is protected by the Federal Confidentiality of Alcohol and Drug Abuse Patient Records regulations: The Federal rules restrict any use of the information to criminally investigate or prosecute any alcohol or drug abuse patient.[facility] HospitalIn the event this information is protected by the Federal Confidentiality of Alcohol and Drug Abuse Patient Records regulations: The Federal rules restrict any use of the information to criminally investigate or prosecute any alcohol or drug abuse patient.[facility] HospitalIn the event this information is protected by the Federal Confidentiality of Alcohol and Drug Abuse Patient Records regulations: The Federal rules restrict any use of the information to criminally investigate or prosecute any alcohol or drug abuse patient.[facility] HospitalIn the event this information is protected by the Federal Confidentiality of Alcohol and Drug Abuse Patient Records regulations: The Federal rules restrict any use of the information to criminally investigate or prosecute any alcohol or drug abuse patient.[facility] HospitalIn the event this information is protected by the Federal Confidentiality of Alcohol and Drug Abuse Patient Records regulations: The Federal rules restrict any use of the information to criminally investigate or prosecute any alcohol or drug abuse patient.[facility] HospitalIn the event this information is protected by the Federal Confidentiality of Alcohol and Drug Abuse Patient Records regulations: The Federal rules restrict any use of the information to criminally investigate or prosecute any alcohol or drug abuse patient.[facility] HospitalIn the event this information is protected by the Federal Confidentiality of Alcohol and Drug Abuse Patient Records regulations: The Federal rules restrict any use of the information to criminally investigate or prosecute any alcohol or drug abuse patient.[facility] HospitalIn the event this information is protected by the Federal Confidentiality of Alcohol and Drug Abuse Patient Records regulations: The Federal rules restrict any use of the information to criminally investigate or prosecute any alcohol or drug abuse patient.[facility] Reason for Visit (unrecogniz ed section and content) Reason Onset Date Comments Refill Request 09/28/2021 Reason Comments Rash on palms of hands fo r last 4-5 days , hurt ,itch , puss Reason Comments Patient Update Reason Onset Date Comments Refill Request 11/02/2022 Reason Comments Physical Reason Comments Results Reason Onset Date Comments Refill Request 11/23/2022 Reason Comments panic attacks More frequent and la saturday had something that was not quite lik her usual , got dizzy, then got a weird hearing episode the slept for next 3 days . She is worrying that these may be mini strokes Reason Comments patient question/panic attack Reason Onset Date Comments Refill Request 03/05/2023 Reason Onset Date Comments Refill Request 05/23/2023 Reason Onset Date Comments Refill Request 06/18/2023 Reason Onset Date Comments Refill Request 08/07/2023 Specialty Diagnoses / Procedures Referred By Los t Referred To Contact MR IMAGING Diagnoses Bilateral arm weakness Arm paresthesia, left Arm paresthesia, right History of stroke with residual effects Dizziness Fatigue, unspecified type Cerebrovascular accident (CVA) of right basal ganglia (HCC) Procedures MRI BRAIN WO/W IVCON MRI BRAIN BRAIN STEM W/O W/CONTRAST MATERIAL Lonnie Brower, DO [address] [place] [address] [place] [address] Referral ID Status Reason Start Date Expiration Date V isits Requested Visits Authorized [id number] Closed Auto-Generate d Referral 08/06/2023 09/04/2024 1 1 Reason Comments Radiology US Specialty Diagnoses / Procedures Referred By Contac t Referred To Contact US IMAGING Diagnoses High serum triiodothyronine (T3) Borderline abnormal thyroid function test Procedures US THYROID/PARATHYROID US SOFT TISSUE HEAD & NECK REAL TIME IMGE DOCM Lonnie Brower, DO [address] [place] [address] [place] [address] Referral ID Status Reason Start Date Expiration Date V isits Requested Visits Authorized [id number] Closed Auto-Generate d Referral 08/06/2023 09/04/2024 1 1 Reason Comments Nurse Triage Call Reason Onset Date Comments Refill Request 11/08/2023 Reason Comments Patient Question Reason Comments Laceration Cut two fingers on l eft hand Reason Comments Medication Problem Reason Comments New Patient Evaluation Hx of stroke in 2 , had MRI of Brain in August but has not yet received the results, currently not working d/t residual effects of CVA, falls frequently and notices weakness is worse on the left side Reason Comments Suture Removal L hand 2nd and 3rd f ingers Reason Onset Date Comments Refill Request 12/06/2023 Reason Onset Date Comments Refill Request 12/31/2023 Reason Comments Appointment Reason Comments left rib pain Thrown off a porch y afternoon Reason Comments Appointment Patient Question Reason Onset Date Comments Refill Request 01/29/2024 Reason Onset Date Comments Refill Request 02/28/2024 Reason Comments Appointment Patient Update Reason Onset Date Comments Refill Request 04/17/2024 Reason Onset Date Comments Refill Request 06/16/2024 Reason Onset Date Comments Refill Request 07/10/2024 Reason Onset Date Comments Refill Request 08/12/2024 Future Appointment 08/12/2024 Reason Comments Pain R rib pain, bilatera l petersen pain, low back pain x1 day Reason Comments Physical Reason Comments Medication Question Reason Onset Date Comments Refill Request 10/23/2024 Reason Comments Information Care Teams (unrecognized sec tion and content) Care Team Personnel Name: LONNIE BROWER DO Member Role: Primary Care Physician Address: [address] [place], [place] [address] Telecom: Care Team Related Persons Name: PIYUSH SON Name: KOFFI JEAN Duster Tender Relationship Specialty Start Date End Date Lonnie Brower DO [address] [facility] [place] [address] PCP - General Family Practice 05/26/13 Duster Tender Relationship Specialty Start Date End Date Lonnie Brower DO [address] [place] [address] PCP - General Family Practice 05/26/13 Duster Tender Relationship Specialty Start Date End Date Lonnie Brower DO [address] [facility] [place] [address] PCP - General Family Practice 05/26/13 Duster Tender Relationship Specialty Start Date End Date Lonnie Brower DO [address] [facility] [place] [address] PCP - General Family Practice 05/26/13 Duster Tender Relationship Specialty Start Date End Date Lonnie Brower DO [address] [facility] [place] [address] PCP - General Family Medicine 05/26/13 Duster Tender Relationship Specialty Start Date End Date Lonnie Brower DO [address] [facility] [place] [address] PCP - General Family Medicine 05/26/13 Duster Tender Relationship Specialty Start Date End Date Lonnie Brower DO [address] [facility] [place] [address] PCP - General Family Medicine 05/26/13 Duster Tender Relationship Specialty Start Date End Date Lonnie Brower DO [address] [facility] [place] [address] PCP - General Family Medicine 05/26/13 Duster Tender Relationship Specialty Start Date End Date Lonnie Brower DO [address] [facility] [place] [address] PCP - General Family Medicine 05/26/13 Duster Tender Relationship Specialty Start Date End Date Lonnie Brower DO [address] [facility] [place] [address] PCP - General Family Medicine 05/26/13 Duster Tender Relationship Specialty Start Date End Date Lonnie Brower DO [address] [facility] [place] [address] PCP - General Family Medicine 05/26/13 Duster Tender Relationship Specialty Start Date End Date Lonnie Brower DO [address] [facility] [place] [address] PCP - General Family Medicine 05/26/13 Duster Tender Relationship Specialty Start Date End Date Lonnie Brower DO [address] [facility] [place] [address] PCP - General Family Medicine 05/26/13 Duster Tender Relationship Specialty Start Date End Date Lonnie Brower DO [address] [facility] [place] [address] PCP - General Family Medicine 05/26/13 Duster Tender Relationship Specialty Start Date End Date Lonnie Brower DO [address] [facility] [place] [address] PCP - General Family Medicine 05/26/13 Duster Tender Relationship Specialty Start Date End Date Lonnie Brower DO [address] [facility] [place] [address] PCP - General Family Medicine 05/26/13 Duster Tender Relationship Specialty Start Date End Date Lonnie Brower, [address] [facility] [place] [address] PCP - General Family Medicine 05/26/13 Duster Tender Relationship Specialty Start Date End Date Lonnie Brower DO [address] [facility] [place] [address] PCP - General Family Medicine 05/26/13 Duster Tender Relationship Specialty Start Date End Date Lonnie Brower DO [address] [facility] [place] [address] PCP - General Family Medicine 05/26/13 Duster Tender Relationship Specialty Start Date End Date Lonnie Brower, [address] [facility] [place] [address] PCP - General Family Medicine 05/26/13 Duster Tender Relationship Specialty Start Date End Date Lonnie Brower DO [address] [facility] [place] [address] PCP - General Family Medicine 05/26/13 Duster Tender Relationship Specialty Start Date End Date Lonnie Brower DO [address] [facility] [place] [address] PCP - General Family Medicine 05/26/13 Duster Tender Relationship Specialty Start Date End Date Lonnie Brower DO [address] [place] [address] PCP - General Family Medicine 05/26/13 Duster Tender Relationship Specialty Start Date End Date Lonnie Brower DO [address] [place] [address] PCP - General Family Medicine 05/26/13 Duster Tender Relationship Specialty Start Date End Date Lonnie Brower DO [address] [facility] [place] [address] PCP - General Family Medicine 05/26/13 Clare Olvera, DATA SOLUTIONS ARCHITECT.CERTIFIED FIRE INVESTIGATOR [address] [facility] [place] [address] Full Roll Inspector Family Medicine 03/15/24 Sangeetha Hancock, DATA SOLUTIONS ARCHITECT.CERTIFIED FIRE INVESTIGATOR [address] [facility] [place] [address] Full Roll Inspector Family Medicine 03/15/24 Duster Tender Relationship Specialty Start Date End Date Lonnei Brower DO [address] [place] [address] PCP - General Family Medicine 05/26/13 Clare Olvera, DATA SOLUTIONS ARCHITECT.CERTIFIED FIRE INVESTIGATOR [address] [facility] [place] [address] Full Roll Inspector Family Medicine 03/15/24 Sangeetha Hancock, DATA SOLUTIONS ARCHITECT.CERTIFIED FIRE INVESTIGATOR [address] [facility] [place] [address] Full Roll Inspector Family Medicine 03/15/24 Duster Tender Relationship Specialty Start Date End Date Lonnie Brower DO [address] [facility] [place] [address] PCP - General Family Medicine 05/26/13 SantiSangeetha, DATA SOLUTIONS ARCHITECT.CERTIFIED FIRE INVESTIGATOR [address] [place] [address] Full Roll Inspector Family [facility] 03/15/24 Duster Tender Relationship Specialty Start Date End Date Lonnie Brower DO [address] [facility] [place] [address] PCP - General Family Medicine 05/26/13 SantiSangeetha, DATA SOLUTIONS ARCHITECT.CERTIFIED FIRE INVESTIGATOR [address] [facility] [place] [address] Full Roll Inspector Family [facility] 03/15/24 Duster Tender Relationship Specialty Start Date End Date Lonnie Brower DO [address] [facility] [place] [address] PCP - General Family Medicine 05/26/13 SantiSangeetha, DATA SOLUTIONS ARCHITECT.CERTIFIED FIRE INVESTIGATOR [address] [facility] [place] [address] Full Roll Inspector Family [facility] 03/15/24 Duster Tender Relationship Specialty Start Date End Date Lonnie Brower DO [address] [facility] [place] [address] PCP - General Family Medicine 05/26/13 SantiSangeetha, DATA SOLUTIONS ARCHITECT.CERTIFIED FIRE INVESTIGATOR [address] [facility] [place] [address] Full Roll Inspector Family [facility] 03/15/24 Duster Tender Relationship Specialty Start Date End Date Lonnie Brower DO [address] [place] [address] PCP - General Family Medicine 05/26/13 Sangeetha Hancock APRN.CERTIFIED FIRE INVESTIGATOR [address] [place] [address] Full Roll Inspector Family Medicine 03/15/24 Subha Townsend APRN.CERTIFIED FIRE INVESTIGATOR [address] [place] [address] Full Roll Inspector Family Medicine 09/21/24 Duster Tender Relationship Specialty Start Date End Date Lonnie Brower DO [address] [place] [address] PCP - General Family Medicine 05/26/13 Sanegetha Hancock APRN.CERTIFIED FIRE INVESTIGATOR [address] [place] [address] Full Roll Inspector Family Medicine 03/15/24 Subha Townsend APRN.CERTIFIED FIRE INVESTIGATOR [address] [place] [address] Full Roll Inspector Family Medicine 09/21/24 Duster Tender Relationship Specialty Start Date End Date Lonnie Brower DO [address] [place] [address] PCP - General Family Medicine 05/26/13 Sangeetha Hancock APRN.CERTIFIED FIRE INVESTIGATOR [address] [place] [address] Full Roll Inspector Family Medicine 03/15/24 Subha Townsend APRN.CERTIFIED FIRE INVESTIGATOR [address] [place] [address] [facility] 09/21/24 Duster Tender Relationship Specialty Start Date End Date Lonnie Brower DO [address] [place], [place] [id number] PCP - General Family Medicine 05/26/13 Sangeetha Hancock APRN.CERTIFIED FIRE INVESTIGATOR [address] [place], [place] [id number] [facility] 03/15/24 Subha Townsend, DATA SOLUTIONS ARCHITECT.CERTIFIED FIRE INVESTIGATOR [address] [place], [place] [id number] [facility] 09/21/24 FOR RECORDS PERTAINING TO PATIENTS WHO ARE OR HAVE BEEN ENROLLED IN A CHEMICAL DEPENDENCY/SUBSTANCEABUSE PROGRAM, SOME INFORMATION MAY BE OMITTED. This clinical summary was aggregated from multiple sources. Caution should be exercised in using it in the provision of clinical care. This summary normalizes information from multiple sources, and as a consequence, information in this document may materially change the coding, format and clinical context of patient data. In addition, data may be omitted in some cases. CLINICAL DECISIONS SHOULD BE BASED ON THE PRIMARY CLINICAL RECORDS. [facility] [facility]. provides no warranty or guarantee of the accuracy or completeness of information in this document.
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
[2024-11-15 17:19] VITALS: PULSE 88; RESP 16; O2SAT 97
[2024-11-15 17:42] VITALS: BP 138/122; PULSE 88; RESP 16; TEMP 36.8; O2SAT 97
--- NOTE | 2024-11-15 19:30 | CM.ED ---
Social Work Acetylene Cutter made phone contact with [facility] and spoke with Alize. Acetylene Cutter made a referral. Mary Altman, POWDER BLENDER AND POURER, EMERGENCY DEPARTMENT MANAGER
== END 2024-11-15 17:43 | disposition home or self-care (01) ==
PROVIDERS: Emergency Provider Emergency Medicine; PCP Student in an Organized Health Care Education/Training Program; Visit Provider Emergency Medicine
DX: S02.85XA Fracture of orbit, unspecified, initial encounter for closed fracture (principal); E78.00 Pure hypercholesterolemia, unspecified; I10 Essential (primary) hypertension; Z87.891 Personal history of nicotine dependence; Y04.8XXA Assault by other bodily force, initial encounter; Z79.82 Long term (current) use of aspirin; Z79.899 Other long term (current) drug therapy
CPT/HCPCS: 70450; 70486; 99283